=== PATIENT | female | born 1930 | race Caucasian/White ===

== ENCOUNTER 2018-06-15 05:35 | Inpatient (IN) | payer MEDICARE ==
[~2018-06-15] VITALS: Ht 157.5 cm; Wt 52.2 kg
[2018-06-15] MEDS ORDERED: AMLO5TAB7 PO (05:47)
[2018-06-15] MEDS ORDERED: FERR324T5 PO (05:47)
[2018-06-15] MEDS ORDERED: DONE5TAB7 PO (05:47)
[2018-06-15] MEDS ORDERED: ALBU2.5V5 NEB (05:47)
[2018-06-15] MEDS ORDERED: FOLI1TAB16 PO (05:47)
[2018-06-15] MEDS ORDERED: CLOT15CR4 TP (05:47)
[2018-06-15] MEDS ORDERED: CYAN10005 PO (05:47)
[2018-06-15] MEDS ORDERED: ACET500T68 PO (05:47)
[2018-06-15] MEDS ORDERED: PRAV40TA2 PO (06:12)
[2018-06-15] MEDS ORDERED: MELO7.5T29 PO (06:12)
[2018-06-15] MEDS ORDERED: LEVO750T5 PO (06:12)
[2018-06-15] MEDS ORDERED: MELA3TAB2 PO (06:12)
[2018-06-15] MEDS ORDERED: LEVE500T6 PO (06:12)
[2018-06-15] MEDS ORDERED: SERT100T PO (06:12)
[2018-06-15] MEDS ORDERED: FURO20TA3 PO (06:12)
[2018-06-15] MEDS ORDERED: HALO5AMP IM (06:12)
[2018-06-15] MEDS ORDERED: HALO2TAB PO (06:12)
[2018-06-15] MEDS ORDERED: SERT25TA PO (06:12)
[2018-06-15 12:00] VITALS: BP 145/61
--- NOTE | 2018-06-15 12:00 | NUR ---
Admission Note with Justification for Admission to [facility] Patient admitted to [facility] for protective oversight for emergency stabilization of acute psychiatric crisis. Pt admitted from: Hospital ER Mode of arrival: EMS Accompanied By: EMS Precipitating behaviors that initiated intake and admission:aggressive, throwing food, angry, confused, advanced dementia. Description of failure of out patient attempts at stabilization in previous setting list behavior and medication trials: Behaviors and assessment findings upon admission: calm, cooperative, compliant, confused. Plan: Admit for protective oversight for adjustment and stabilization of medications, behaviors and mood. Intense treatment regimen including groups, medication adjustments, therapy, consistent regimen for ADL's, self care, and sleep hygiene. Daily monitoring by Inpatient staff, Psychiatry, and Medical Physician.
[2018-06-15] MEDS ORDERED: METHYL SALICYLATE/MENTHOL TOPICAL OINTMENT 29GM TUBE. TP PRN (14:30)
[2018-06-15] MEDS ORDERED: MAGNESIUM HYDROXIDE 2,400 MG/30 ML ORAL.SUSP. PO PRN (14:30)
[2018-06-15] MEDS ORDERED: MAG HYDROX/AL HYDROX/SIMETH 30 ML ORAL.SUSP PO PRN (14:30)
[2018-06-15] MEDS ORDERED: ACETAMINOPHEN 325 MG TABLET PO PRN (14:30)
[2018-06-15 16:52] VITALS: BP 130/73
[2018-06-15] MEDS ORDERED: ALBUTEROL SULFATE 2.5 MG/3 ML NEBU. NEB PRN (17:30)
[2018-06-15] MEDS ORDERED: ACETAMINOPHEN 500 MG TABLET PO PRN (17:45)
[2018-06-15] MEDS ORDERED: MELATONIN 3 MG TABLET PO PRN (17:45)
[2018-06-15 18:57] LABS: AMORPHOUS SEDIMENT,UR PRESENT /HPF; BACTERIA,URINE 0 /HPF (0-FEW); BILIRUBIN,URINE NEG (NEG); CLARITY,URINE HAZY; COLOR,URINE AMBER; GLUCOSE,URINE NEG (NEG); NITRITE,URINE NEG (NEG); SQUAMOUS EPITHELIAL CELL,UR FEW /LPF; UROBILINOGEN,URINE 0.2 mg/dL (0.2 mg/dL)
[2018-06-15 18:58] LABS: GRANULAR CASTS,URINE OCC /HPF; HYALINE CASTS, URINE MANY /HPF
[2018-06-15] MEDS: PRAVASTATIN 20 MG TABLET. PO SCH (20:15)
[2018-06-15] MEDS: CLOTRIMAZOLE 1% TOPICAL CREAM 30GM TUBE. TP SCH (20:15)
[2018-06-15] MEDS: levETIRAcetam 500 MG TABLET PO SCH (20:15)
[2018-06-15] MEDS: DONEPEZIL HCL 5 MG TABLET. PO SCH (20:15)
--- NOTE | 2018-06-15 21:23 | HP ---
ADMIT DATE: 06/15/2018 PSYCHIATRIC ADMISSION HISTORY/EVALUATION IDENTIFYING DATA: The patient is an 88-year-old female referred to us from [facility] Emergency Room after she presented there with increased agitation, aggression, throwing food. She was angry, confused, reportedly has advanced dementia. Behaviors were unmanageable and she had been removed from her prior placement consequent to her behaviors and that being at home with her daughter as well. She was deemed potential danger, had failed outpatient psychiatric interventions, referred for inpatient psychiatric stabilization. CHIEF COMPLAINT: "I came today." The patient is accurate with this information, but other than this, she is unable to give me any relevant historical information other than being able to tell me her name. HISTORY OF PRESENT ILLNESS: The patient has a history of dementia, Alzheimer's vascular type with this has been getting progressively worse recently with added delusions, depression, and agitation. No clear history of bipolar disorder, suicidal or homicidal ideation. She has had some sleep and appetite changes as well. She has also appeared depressed, anxious, somewhat obsessive at other times. PAST PSYCHIATRIC HISTORY: As above. MEDICAL HISTORY: Positive for status post hip fracture, hypertension, seizure disorder, hyperlipidemia, pulmonary hypertension, osteoporosis, and pericardial effusion. ALLERGIES: She has a very significant allergies to DAIRY and reportedly this can make her deathly ill. She reportedly had seizures while she was on RISPERDAL and has a history of allergy to PENICILLIN. CODE STATUS: DNR. Ambulates with walker. Gait is unsteady. UA is negative. FAMILY HISTORY: Noncontributory. SOCIAL HISTORY: No history of alcohol, drug abuse, physical, sexual or elder abuse history is noted. Not known to be a perpetrator. REACTION TO HOSPITALIZATION: The patient oblivious of this. ASSETS: Supportive family and the patient's daughter is a DPOA, who facilitated and consented to this hospitalization. Her name is Sharona Godoy, telephone. MENTAL STATUS EXAM: The patient was seen individually evening of 06/15/2018. She ambulates with the assistance of staff members in walker, gait very unsteady. Insight, judgment, recent and remote memory, attention, concentration, fund of knowledge poor, consistent with her diagnosis. She is otherwise pleasant and other than being oriented to herself, unaware of date, time, or where she is, though she did state she came in today, which is accurate. IMPRESSION: Major neurocognitive disorder, Alzheimer's vascular with delusion, depression, behavioral disturbance; anxiety disorder, unspecified; impulse control disorder, unspecified. Rest diagnoses as above. PLAN: Admit to geropsychiatry unit at [facility]. I will see the patient daily individually from a psychiatric standpoint, medical followup with Dr. Barahona/Dr. Redding. Continue the patient on her current psychotropics, observe baseline and initiate fall risk precautions. Make further adjustments as clinically indicated. MAN Davide MUÑOZ MD DR: ALBARO/dee JOB#: [id number] / [id number]
--- NOTE | 2018-06-15 23:08 | NUR ---
Behavior Intervention Response and Plan: BIRP Note: Behavior: Assumed Care of patient, patient located in Day Room at shift change. Patient exhibited the following behavior Calm, Interactive, Cooperative. Brief assessment on rounds of vital signs, medication needs, lab studies, and pain. Treatment plan problems . Intervention: Patient assessed and the following interventions initiated safety checks 15 Minute Checks Personal Alarm in place , Head to toe Assessment , Cognitive Assessment. Response: After interactions and interventions patient responded in the following manner, Calm , Compliant ,Cooperative. Continue to assess behaviors and condition will continue to monitor throughout the shift as needed. Patient educated on ADL's, and hand hygiene. 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 Continue to assess patient for changes in above assessment. Monitor for medication needs, pain, and safety concerns. Hourly rounding performed to ensure safe environment.
--- NOTE | 2018-06-15 23:09 | NUR ---
Pt Daughter Sharona called to advise pt behavior triggers include: her personal appearance not being how she would like it, noise, clutter (people around her) and not having enough personal space. Advised she would like to remind us not to give her mother any dairy products or soy products, she also stated risperidal gives patient grand mal seizures so do not give that to her. I advised the daughter we are aware of her allergies and I will let all staff know about the triggers she advised me of.
--- NOTE | 2018-06-15 23:11 | PDOC ---
Exam Note: Dinesh Note: Please also refer to the separate dictated note~for this date of service dictated separately.~Patient seen individually. Discussed the patient with Nursing staff reviewed the chart.~Reviewed interim history and current functioning. Reviewed vital signs,~Labs/ Radiology~and current medications noted below. Continue current treatment with the changes noted in the dictated addendum note Assessment: Vital Signs: Vital Signs Date Time Temp Pulse Resp B/P (MAP) Pulse Ox O2 Delivery O2 Flow Rate FiO2 06/15/18 16:52 98.1 78 18 130/73 (92) 96 Room Air Labs: Laboratory Tests Test 06/15/18 18:26 Urine Collection Type Unknown Urine Color Breanna Urine Clarity Hazy Urine pH 5.5 Urine Specific [place] >=1.030 Urine Protein Trace (NEG-TRACE) Urine Glucose (UA) Neg mg/dL (NEG) Urine Ketones (Stick) Trace mg/dL (NEG) Urine Blood Neg (NEG) Urine Nitrite Neg (NEG) Urine Bilirubin Neg (NEG) Urine Urobilinogen Dipstick 0.2 mg/dL (0.2 mg/dL) Urine Leukocyte Esterase Neg (NEG) Urine RBC 1-2 /HPF (0-2) Urine WBC 1-4 /HPF (0-4) Urine Squamous Epithelial Cells Few /LPF Urine Amorphous Sediment Present /HPF Urine Bacteria 0 /HPF (0-FEW) Urine Hyaline Casts Many /HPF Urine Granular Casts Occ /HPF Urine Mucus Mod /LPF Current Medications: Meds: Current Medications Acetaminophen (Tylenol) 650 mg PRN Q6HRS PRN PO PAIN / TEMP; Start 06/15/18 at 14:30; Status Cancel Multi-Ingredient Ointment (Analgesic [place]) 1 hailee PRN QID PRN TP MUSCLE PAIN; Start 06/15/18 at 14:30 Al Hydroxide/Mg Hydroxide (Mylanta Plus Xs) 15 ml PRN AFTMEALHC PRN PO DYSPEPSIA; Start 06/15/18 at 14:30 Magnesium Hydroxide (Milk Of Magnesia) 2,400 mg PRN QHS PRN PO CONSTIPATION; Start 06/15/18 at 14:30 Albuterol Sulfate (Ventolin) 2.5 mg PRN Q6HRS PRN NEB SHORTNESS OF BREATH; Start 06/15/18 at 17:30 Cyanocobalamin (Vitamin B-12) 1,000 mcg DAILY PO ; Start 06/16/18 at 09:00 Furosemide (Lasix) 20 mg DAILYAC PO ; Start 06/16/18 at 07:30 Acetaminophen (Tylenol) 1,000 mg PRN TID PRN PO PAIN / TEMP; Start 06/15/18 at 17:45 Amlodipine Besylate (Norvasc) 5 mg DAILY PO ; Start 06/16/18 at 09:00 Clotrimazole (Lotrimin) 1 hailee BID TP ; Start 06/15/18 at 21:00 Ferrous Sulfate (Feosol) 325 mg Q48H PO ; Start 06/17/18 at 08:00 Folic Acid (Folic Acid) 1 mg DAILY PO ; Start 06/16/18 at 09:00 Levetiracetam (Keppra) 500 mg BID PO Last administered on 06/15/18at 20:15; Start 06/15/18 at 21:00 Levofloxacin (Levaquin) 750 mg Q48H PO ; Start 06/16/18 at 06:00 Melatonin 3 mg PRN QHS PRN PO INSOMNIA; Start 06/15/18 at 17:45 Meloxicam (Mobic) 7.5 mg DAILYWBKFT PO ; Start 06/16/18 at 08:00 Pravastatin Sodium (Pravachol) 40 mg QHS PO Last administered on 06/15/18at 20: 15; Start 06/15/18 at 21:00 Sertraline HCl (Zoloft) 100 mg DAILY PO ; Start 06/16/18 at 09:00 Donepezil HCl (Aricept) 5 mg HS PO Last administered on 06/15/18at 20:15; Start 06/15/18 at 21:00 Haloperidol (Haldol) 2 mg PRN TID PRN PO ANXIETY / AGITATION; Start 06/15/18 at 18:00 Sertraline HCl (Zoloft) 25 mg DAILY PO ; Start 06/16/18 at 09:00 Active Scripts Active Reported Furosemide 20 Mg Tablet 20 Mg PO DAILYAC Levofloxacin 750 Mg Tablet 750 Mg PO Q48HRS Haloperidol (Haloperidol Lactate) 5 Mg/1 Ml Ampul 5 Mg IM PRN Q4HRS PRN Haloperidol 2 Mg Tablet 2 Mg PO TID PRN Zoloft (Sertraline Hcl) 25 Mg Tablet 25 Mg PO DAILY Zoloft (Sertraline Hcl) 100 Mg Tablet 100 Mg PO DAILY Pravastatin Sodium 40 Mg Tablet 40 Mg PO HS Meloxicam 7.5 Mg Tablet 7.5 Mg PO DAILYWBKFT Melatonin 3 Mg Tablet 3 Mg PO HS PRN Levetiracetam 500 Mg Tablet 500 Mg PO BID Folic Acid 1 Mg Tablet 1 Mg PO DAILY Ferrous Sulfate 324 Mg Tablet.dr 324 Mg PO Q48HRS Donepezil Hcl 5 Mg Tablet 5 Mg PO HS Vitamin B-12 (Cyanocobalamin (Vitamin B-12)) 1,000 Mcg Tablet 1,000 Mcg PO DAILY Clotrimazole 15 Gm Cream..g. 1 Hailee TP BID Amlodipine Besylate 5 Mg Tablet 5 Mg PO DAILY Albuterol Sulfate Neb Soln (Albuterol Sulfate) 2.5 Mg/3 Ml Vial.neb 3 Ml NEB PRN Q6HRS PRN Acetaminophen 500 Mg Tablet 1,000 Mg PO TID PRN I have reviewed the current psychotropics carefully including drug interactions. Risk benefit ratio favors no change other than as noted in my dictated progress note. Diagnosis: Problems: (1) Anxiety disorder (2) Dementia in Alzheimer's disease with delusions (3) Dementia in Alzheimer's disease with depression (4) Dementia, vascular, with delusions (5) Dementia, vascular, with depression (6) Impulse control disorder ANTWAN MUÑOZ MD Jun 15, 2018 23:11
[2018-06-16] MEDS: levoFLOXacin 750 MG TABLET PO SCH (06:09)
[2018-06-16 06:16] VITALS: BP 117/65
[2018-06-16 08:26] LABS: BASO # 0.1 x10^3/uL (0.0-0.2); BASO % 1 % (0-3); EOS # 0.2 x10^3/uL (0.0-0.7); EOS % 4 % (0-3); HEMOGLOBIN 13.4 g/dL (12.0-15.5); LYMPH # 0.9 x10^3/uL (1.0-4.8); LYMPH % 16 % (24-48); MEAN CORPUSCULAR HEMOGLOBIN 29 pg (25-35); MEAN CORPUSCULAR HGB CONC 34 g/dL (31-37); MEAN CORPUSCULAR VOLUME 86 fL (79-100); MONO # 0.7 x10^3/uL (0.0-1.1); MONO % 12 % (0-9); NEUT # 3.8 x10^3uL (1.8-7.7); NEUT % 67 % (31-73); PLATELET COUNT 293 x10^3/uL (140-400); RED BLOOD COUNT 4.68 x10^6/uL (3.50-5.40); RED CELL DISTRIBUTION WIDTH 14.8 % (11.5-14.5); WHITE BLOOD COUNT 5.6 x10^3/uL (4.0-11.0)
[2018-06-16 08:36] LABS: ALBUMIN 3.3 g/dL (3.4-5.0); ALBUMIN/GLOBULIN RATIO 0.9 (1.0-1.7); CALCIUM 8.8 mg/dL (8.5-10.1); CREATININE 0.8 mg/dL (0.6-1.0); GFR 67.8; MAGNESIUM 2.1 mg/dL (1.8-2.4); POTASSIUM 3.7 mmol/L (3.5-5.1); TOTAL BILIRUBIN 0.4 mg/dL (0.2-1.0); TOTAL PROTEIN 7.1 g/dL (6.4-8.2)
[2018-06-16] MEDS: MELOXICAM 7.5 MG TABLET PO SCH (09:37)
[2018-06-16] MEDS: FUROSEMIDE 20 MG TABLET PO SCH (09:37)
[2018-06-16] MEDS: FOLIC ACID 1 MG TABLET PO SCH (09:38)
[2018-06-16] MEDS: levETIRAcetam 500 MG TABLET PO SCH ×2 (09:38→19:55)
[2018-06-16] MEDS: SERTRALINE 25 MG TABLET. PO SCH (09:39)
[2018-06-16] MEDS: SERTRALINE 100 MG TABLET. PO SCH (09:39)
[2018-06-16] MEDS: CYANOCOBALAMIN (VITAMIN B-12) 1,000 MCG TABLET. PO SCH (09:39)
[2018-06-16] MEDS: amLODIPine BESYLATE 5 MG TABLET PO SCH (09:39)
[2018-06-16] MEDS: LACTOBACILLUS RHAMNOSUS GG 1 CAPSULE. PO SCH ×2 (09:52→19:54)
[2018-06-16 10:20] LABS: THYROID STIM HORMONE (TSH) 3.679 uIU/mL (0.358-3.740)
--- NOTE | 2018-06-16 10:28 | NUR ---
Pt is calm, cooperative, and confused. She is alert to self only. She thinks she is at a hotel. When asked "what month is it she stated "Sunday."" She was not able to state the year. No agitation, aggression, hallucinations, or delusions noted. Pt is compliant with medication and assessment.
[2018-06-16 12:06] LABS: THYROXINE 7.8 ug/dL (4.5-12.0)
[2018-06-16] MEDS: CLOTRIMAZOLE 1% TOPICAL CREAM 30GM TUBE. TP SCH ×2 (15:07→19:55)
[2018-06-16 16:47] VITALS: BP 118/69
[2018-06-16] MEDS: HALOPERIDOL 2 MG TABLET PO PRN (16:56)
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
[2018-06-16] MEDS: DONEPEZIL HCL 5 MG TABLET. PO SCH (19:54)
[2018-06-16] MEDS: PRAVASTATIN 20 MG TABLET. PO SCH (19:55)
--- NOTE | 2018-06-16 22:18 | NUR ---
Behavior Intervention Response and Plan: BIRP Note: Behavior: Assumed Care of patient, patient located in Day Room at shift change. Patient exhibited the following behavior Calm, Social, Compliant. Brief assessment on rounds of vital signs, medication needs, lab studies, and pain. Treatment plan problems . Intervention: Patient assessed and the following interventions initiated safety checks 15 Minute Checks Personal Alarm in place , Cognitive Assessment , Head to toe Assessment. Response: After interactions and interventions patient responded in the following manner, Calm , Compliant ,Cooperative. Continue to assess behaviors and condition will continue to monitor throughout the shift as needed. Patient educated on ADL's, and hand hygiene. Plan: Continue to monitor Master Treatment Plan for patient's progress toward short term goals of Decreased Agitation, Improved Mood, supervisor intermediates goals to return to previous living setting vs placement. Continue to assess patient for changes in above assessment. Monitor for medication needs, pain, and safety concerns. Hourly rounding performed to ensure safe environment.
--- NOTE | 2018-06-16 23:12 | PDOC ---
Exam Note: Dinesh Note: Please also refer to the separate dictated note~for this date of service dictated separately.~Patient seen individually. Discussed the patient with Nursing staff reviewed the chart.~Reviewed interim history and current functioning. Reviewed vital signs,~Labs/ Radiology~and current medications noted below. Continue current treatment with the changes noted in the dictated addendum note Assessment: Vital Signs: Vital Signs Date Time Temp Pulse Resp B/P (MAP) Pulse Ox O2 Delivery O2 Flow Rate FiO2 06/16/18 16:47 97.6 83 18 118/69 (85) 93 Nasal Cannula I&O Intake and Output 06/16/18 07:00 Intake Total 240 ml Balance 240 ml Intake Oral 240 ml Labs: Laboratory Tests Test 06/16/18 07:54 White Blood Count 5.6 x10^3/uL (4.0-11.0) Red Blood Count 4.68 x10^6/uL (3.50-5.40) Hemoglobin 13.4 g/dL (12.0-15.5) Hematocrit 40.0 % (36.0-47.0) Mean Corpuscular Volume 86 fL (79-100) Mean Corpuscular Hemoglobin 29 pg (25-35) Mean Corpuscular Hemoglobin Concent 34 g/dL (31-37) Red Cell Distribution Width 14.8 % (11.5-14.5) H Platelet Count 293 x10^3/uL (140-400) Neutrophils (%) (Auto) 67 % (31-73) Lymphocytes (%) (Auto) 16 % (24-48) L Monocytes (%) (Auto) 12 % (0-9) H Eosinophils (%) (Auto) 4 % (0-3) H Basophils (%) (Auto) 1 % (0-3) Neutrophils # (Auto) 3.8 x10^3uL (1.8-7.7) Lymphocytes # (Auto) 0.9 x10^3/uL (1.0-4.8) L Monocytes # (Auto) 0.7 x10^3/uL (0.0-1.1) Eosinophils # (Auto) 0.2 x10^3/uL (0.0-0.7) Basophils # (Auto) 0.1 x10^3/uL (0.0-0.2) Sodium Level 141 mmol/L (136-145) Potassium Level 3.7 mmol/L (3.5-5.1) Chloride Level 107 mmol/L (98-107) Carbon Dioxide Level 27 mmol/L (21-32) Anion Gap 7 (6-14) Blood Urea Nitrogen 22 mg/dL (7-20) H Creatinine 0.8 mg/dL (0.6-1.0) Estimated GFR (Cockcroft-Gault) 67.8 BUN/Creatinine Ratio 28 (6-20) H Glucose Level 95 mg/dL (70-99) Calcium Level 8.8 mg/dL (8.5-10.1) Magnesium Level 2.1 mg/dL (1.8-2.4) Iron Level 39 ug/dL (50-170) L Total Iron Binding Capacity 295 ug/dL (250-450) Iron Saturation 13 % (15-34) L Total Bilirubin 0.4 mg/dL (0.2-1.0) Aspartate Amino Transferase (AST) 29 U/L (15-37) Alanine Aminotransferase (ALT) 19 U/L (14-59) Alkaline Phosphatase 54 U/L (46-116) Total Protein 7.1 g/dL (6.4-8.2) Albumin 3.3 g/dL (3.4-5.0) L Albumin/Globulin Ratio 0.9 (1.0-1.7) L Triglycerides Level 71 mg/dL (0-150) Cholesterol Level 170 mg/dL (0-200) LDL Cholesterol, Calculated 121 mg/dL (0-100) H VLDL Cholesterol, Calculated 14 mg/dL (0-40) Non-HDL Cholesterol Calculated 135 mg/dL (0-129) H HDL Cholesterol 35 mg/dL (40-60) L Cholesterol/HDL Ratio 4.0 Thyroid Stimulating Hormone (TSH) 3.679 uIU/mL (0.358-3.740) Thyroxine (T4) 7.8 ug/dL (4.5-12.0) Total Triiodothyronine (TT3) 102 ng/dL (71-180) Current Medications: Meds: Current Medications Acetaminophen (Tylenol) 650 mg PRN Q6HRS PRN PO PAIN / TEMP; Start 06/15/18 at 14:30; Status Cancel Multi-Ingredient Ointment (Analgesic [place]) 1 hailee PRN QID PRN TP MUSCLE PAIN; Start 06/15/18 at 14:30 Al Hydroxide/Mg Hydroxide (Mylanta Plus Xs) 15 ml PRN AFTMEALHC PRN PO DYSPEPSIA; Start 06/15/18 at 14:30 Magnesium Hydroxide (Milk Of Magnesia) 2,400 mg PRN QHS PRN PO CONSTIPATION; Start 06/15/18 at 14:30 Albuterol Sulfate (Ventolin) 2.5 mg PRN Q6HRS PRN NEB SHORTNESS OF BREATH; Start 06/15/18 at 17:30 Cyanocobalamin (Vitamin B-12) 1,000 mcg DAILY PO Last administered on at 09:39; Start 06/16/18 at 09:00 Furosemide (Lasix) 20 mg DAILYAC PO Last administered on 06/16/18at 09:37; Start 06/16/18 at 07:30 Acetaminophen (Tylenol) 1,000 mg PRN TID PRN PO PAIN / TEMP; Start 06/15/18 at 17:45 Amlodipine Besylate (Norvasc) 5 mg DAILY PO Last administered on 06/16/18at 09: 39; Start 06/16/18 at 09:00 Clotrimazole (Lotrimin) 1 hailee BID TP Last administered on 06/16/18at 15:07; Start 06/15/18 at 21:00 Ferrous Sulfate (Feosol) 325 mg Q48H PO ; Start 06/17/18 at 08:00 Folic Acid (Folic Acid) 1 mg DAILY PO Last administered on 06/16/18at 09:38; Start 06/16/18 at 09:00 Levetiracetam (Keppra) 500 mg BID PO Last administered on 06/16/18at 19:55; Start 06/15/18 at 21:00 Levofloxacin (Levaquin) 750 mg Q48H PO Last administered on 06/16/18at 06:09; Start 06/16/18 at 06:00 Melatonin 3 mg PRN QHS PRN PO INSOMNIA; Start 06/15/18 at 17:45 Meloxicam (Mobic) 7.5 mg DAILYWBKFT PO Last administered on 06/16/18at 09:37; Start 06/16/18 at 08:00 Pravastatin Sodium (Pravachol) 40 mg QHS PO Last administered on 06/16/18 19: 55; Start 06/15/18 at 21:00 Sertraline HCl (Zoloft) 100 mg DAILY PO Last administered on 06/16/18at 09:39; Start 06/16/18 at 09:00 Donepezil HCl (Aricept) 5 mg HS PO Last administered on 06/16/18at 19:54; Start 06/15/18 at 21:00 Haloperidol (Haldol) 2 mg PRN TID PRN PO ANXIETY / AGITATION Last administered on 06/16/18 16:56; Start 06/15/18 at 18:00 Sertraline HCl (Zoloft) 25 mg DAILY PO Last administered on 06/16/18 09:39; Start 06/16/18 at 09:00 Lactobacillus Rhamnosus (Culturelle) 1 cap BID PO Last administered on at 19:54; Start 06/16/18 at 09:00 Olanzapine (ZyPREXA ZYDIS) 2.5 mg PRN Q2HR PRN PO PSYCHOSIS; Start 06/16/18 at 17:30 Active Scripts Active Reported Furosemide 20 Mg Tablet 20 Mg PO DAILYAC Levofloxacin 750 Mg Tablet 750 Mg PO Q48HRS Haloperidol (Haloperidol Lactate) 5 Mg/1 Ml Ampul 5 Mg IM PRN Q4HRS PRN Haloperidol 2 Mg Tablet 2 Mg PO TID PRN Zoloft (Sertraline Hcl) 25 Mg Tablet 25 Mg PO DAILY Zoloft (Sertraline Hcl) 100 Mg Tablet 100 Mg PO DAILY Pravastatin Sodium 40 Mg Tablet 40 Mg PO HS Meloxicam 7.5 Mg Tablet 7.5 Mg PO DAILYWBKFT Melatonin 3 Mg Tablet 3 Mg PO HS PRN Levetiracetam 500 Mg Tablet 500 Mg PO BID Folic Acid 1 Mg Tablet 1 Mg PO DAILY Ferrous Sulfate 324 Mg Tablet.dr 324 Mg PO Q48HRS Donepezil Hcl 5 Mg Tablet 5 Mg PO HS Vitamin B-12 (Cyanocobalamin (Vitamin B-12)) 1,000 Mcg Tablet 1,000 Mcg PO DAILY Clotrimazole 15 Gm Cream..g. 1 Hailee TP BID Amlodipine Besylate 5 Mg Tablet 5 Mg PO DAILY Albuterol Sulfate Neb Soln (Albuterol Sulfate) 2.5 Mg/3 Ml Vial.neb 3 Ml NEB PRN Q6HRS PRN Acetaminophen 500 Mg Tablet 1,000 Mg PO TID PRN I have reviewed the current psychotropics carefully including drug interactions. Risk benefit ratio favors no change other than as noted in my dictated progress note. Diagnosis: Problems: (1) Anxiety disorder (2) Dementia in Alzheimer's disease with delusions (3) Dementia in Alzheimer's disease with depression (4) Dementia, vascular, with delusions (5) Dementia, vascular, with depression (6) Impulse control disorder ANTWAN MUÑOZ MD Jun 16, 2018 23:12
--- NOTE | 2018-06-16 23:16 | PDOC2 ---
CONSULT Date of Admission DATE: 06/16/18 TIME: 23:16 Reason for Consult: Medical Management Referring Physician: Dr العراقي Source: Caregiver, Chart review, Patient History of Present Illness: 88/F to [facility] for [facility] admission due to dementia with delusions and behavioral disturbances. Records indicate that recently patiently has become more aggressive, angry, and confused. She's reportedly become more resistant/refusing meds/treatments, and throwing food. Risperdal and titration of seizure meds reportedly not effective. She reportedly thinks she's at a hotel. I find her lying in bed sleeping, in no distress. She is confused with questioning but not aggressive and she is overall cooperative. Cardiovascular: HTN, hyperipidemia, pulmonary hypertension, Other (pericardial effusion) Pulmonary: Other CENTRAL NERVOUS SYSTEM: Dementia, Seizure Heme/Onc: Iron deficiency Anemia Musculoskeletal: Osteoarthritis, Other (osteoporosis) Dermatology: Other (onychomycosis) Past Surgical History ORIF R hip Past Surgical History: No pertinent history Smoke: No ALCOHOL: none Drugs: None Current Medications Current Medications Acetaminophen (Tylenol) 650 mg PRN Q6HRS PRN PO PAIN / TEMP; Start 06/15/18 at 14:30; Status Cancel Multi-Ingredient Ointment (Analgesic [place]) 1 hailee PRN QID PRN TP MUSCLE PAIN; Start 06/15/18 at 14:30 Al Hydroxide/Mg Hydroxide (Mylanta Plus Xs) 15 ml PRN AFTMEALHC PRN PO DYSPEPSIA; Start 06/15/18 at 14:30 Magnesium Hydroxide (Milk Of Magnesia) 2,400 mg PRN QHS PRN PO CONSTIPATION; Start 06/15/18 at 14:30 Albuterol Sulfate (Ventolin) 2.5 mg PRN Q6HRS PRN NEB SHORTNESS OF BREATH; Start 06/15/18 at 17:30 Cyanocobalamin (Vitamin B-12) 1,000 mcg DAILY PO Last administered on at 09:39; Start 06/16/18 at 09:00 Furosemide (Lasix) 20 mg DAILYAC PO Last administered on 06/16/18at 09:37; Start 06/16/18 at 07:30 Acetaminophen (Tylenol) 1,000 mg PRN TID PRN PO PAIN / TEMP; Start 06/15/18 at 17:45 Amlodipine Besylate (Norvasc) 5 mg DAILY PO Last administered on 06/16/18 09: 39; Start 06/16/18 at 09:00 Clotrimazole (Lotrimin) 1 hailee BID TP Last administered on 06/16/18 15:07; Start 06/15/18 at 21:00 Ferrous Sulfate (Feosol) 325 mg Q48H PO ; Start 06/17/18 at 08:00 Folic Acid (Folic Acid) 1 mg DAILY PO Last administered on 06/16/18 09:38; Start 06/16/18 at 09:00 Levetiracetam (Keppra) 500 mg BID PO Last administered on 06/16/18 19:55; Start 06/15/18 at 21:00 Levofloxacin (Levaquin) 750 mg Q48H PO Last administered on 06/16/18 06:09; Start 06/16/18 at 06:00 Melatonin 3 mg PRN QHS PRN PO INSOMNIA; Start 06/15/18 at 17:45 Meloxicam (Mobic) 7.5 mg DAILYWBKFT PO Last administered on 06/16/18 09:37; Start 06/16/18 at 08:00 Pravastatin Sodium (Pravachol) 40 mg QHS PO Last administered on 06/16/18 19: 55; Start 06/15/18 at 21:00 Sertraline HCl (Zoloft) 100 mg DAILY PO Last administered on 06/16/18 09:39; Start 06/16/18 at 09:00 Donepezil HCl (Aricept) 5 mg HS PO Last administered on 06/16/18 19:54; Start 06/15/18 at 21:00 Haloperidol (Haldol) 2 mg PRN TID PRN PO ANXIETY / AGITATION Last administered on 06/16/18 16:56; Start 06/15/18 at 18:00 Sertraline HCl (Zoloft) 25 mg DAILY PO Last administered on 06/16/18 09:39; Start 06/16/18 at 09:00 Lactobacillus Rhamnosus (Culturelle) 1 cap BID PO Last administered on 19:54; Start 06/16/18 at 09:00 Olanzapine (ZyPREXA ZYDIS) 2.5 mg PRN Q2HR PRN PO PSYCHOSIS; Start 06/16/18 at 17:30 Active Scripts Active Reported Furosemide 20 Mg Tablet 20 Mg PO DAILYAC Levofloxacin 750 Mg Tablet 750 Mg PO Q48HRS Haloperidol (Haloperidol Lactate) 5 Mg/1 Ml Ampul 5 Mg IM PRN Q4HRS PRN Haloperidol 2 Mg Tablet 2 Mg PO TID PRN Zoloft (Sertraline Hcl) 25 Mg Tablet 25 Mg PO DAILY Zoloft (Sertraline Hcl) 100 Mg Tablet 100 Mg PO DAILY Pravastatin Sodium 40 Mg Tablet 40 Mg PO HS Meloxicam 7.5 Mg Tablet 7.5 Mg PO DAILYWBKFT Melatonin 3 Mg Tablet 3 Mg PO HS PRN Levetiracetam 500 Mg Tablet 500 Mg PO BID Folic Acid 1 Mg Tablet 1 Mg PO DAILY Ferrous Sulfate 324 Mg Tablet.dr 324 Mg PO Q48HRS Donepezil Hcl 5 Mg Tablet 5 Mg PO HS Vitamin B-12 (Cyanocobalamin (Vitamin B-12)) 1,000 Mcg Tablet 1,000 Mcg PO DAILY Clotrimazole 15 Gm Cream..g. 1 Hailee TP BID Amlodipine Besylate 5 Mg Tablet 5 Mg PO DAILY Albuterol Sulfate Neb Soln (Albuterol Sulfate) 2.5 Mg/3 Ml Vial.neb 3 Ml NEB PRN Q6HRS PRN Acetaminophen 500 Mg Tablet 1,000 Mg PO TID PRN Allergies: Coded Allergies: Milk Containing Products (Verified Allergy, Severe, 06/15/18) risperidone (Verified Allergy, Severe, 06/15/18) Seizures Penicillins (Verified Allergy, Intermediate, 06/15/18) soy (Verified Allergy, Unknown, 06/16/18) Review of Systems: Constitutional: No fever or chills Eyes: No eye pain or blurred vision Skin: No rash or itching Cardiovascular: No chest pain, syncope, palpitations, dyspnea on exertion, or edema Respiratory: No cough or difficulty breathing Gastrointestinal: No nausea, vomiting, or abdominal pain Neurologic: No headaches or focal neurologic deficits Endocrine: No heat or cold intolerance Genitourinary: No incontinence or hematuria Musculoskeletal: No joint pain or swelling Lymphatics: No enlarged lymph nodes Psychiatric: No anxiety or depression Physical Exam: Gen.: sleeping in bed rouses to verbal no distress HEENT: Normocephalic atraumatic, no scleral icterus, oral mucosa pink and moist Neck: Supple, no lymphadenopathy, nontender Cardiovascular: Normal S1 and S2 no murmurs Pulmonary: Lungs are clear bilaterally with good air movement no respiratory distress Abdomen: Soft nontender non-distended, bowel sounds present no masses Extremities: No clubbing, cyanosis or edema, OA changes b/l hands noted Neuro: Alert, cranial nerves II through XII grossly intact, no lateralizing neuro deficits Skin: Warm, dry VITALS Vital Signs Date Time Temp Pulse Resp B/P (MAP) Pulse Ox O2 Delivery O2 Flow Rate FiO2 06/16/18 16:47 97.6 83 18 118/69 (85) 93 Nasal Cannula Labs Laboratory Tests Test 06/15/18 18:26 06/16/18 07:54 Urine Collection Type Unknown Urine Color Breanna Urine Clarity Hazy Urine pH 5.5 Urine Specific [place] >=1.030 Urine Protein Trace (NEG-TRACE) Urine Glucose (UA) Neg mg/dL (NEG) Urine Ketones (Stick) Trace mg/dL (NEG) Urine Blood Neg (NEG) Urine Nitrite Neg (NEG) Urine Bilirubin Neg (NEG) Urine Urobilinogen Dipstick 0.2 mg/dL (0.2 mg/dL) Urine Leukocyte Esterase Neg (NEG) Urine RBC 1-2 /HPF (0-2) Urine WBC 1-4 /HPF (0-4) Urine Squamous Epithelial Cells Few /LPF Urine Amorphous Sediment Present /HPF Urine Bacteria 0 /HPF (0-FEW) Urine Hyaline Casts Many /HPF Urine Granular Casts Occ /HPF Urine Mucus Mod /LPF White Blood Count 5.6 x10^3/uL (4.0-11.0) Red Blood Count 4.68 x10^6/uL (3.50-5.40) Hemoglobin 13.4 g/dL (12.0-15.5) Hematocrit 40.0 % (36.0-47.0) Mean Corpuscular Volume 86 fL (79-100) Mean Corpuscular Hemoglobin 29 pg (25-35) Mean Corpuscular Hemoglobin Concent 34 g/dL (31-37) Red Cell Distribution Width 14.8 % (11.5-14.5) Platelet Count 293 x10^3/uL (140-400) Neutrophils (%) (Auto) 67 % (31-73) Lymphocytes (%) (Auto) 16 % (24-48) Monocytes (%) (Auto) 12 % (0-9) Eosinophils (%) (Auto) 4 % (0-3) Basophils (%) (Auto) 1 % (0-3) Neutrophils # (Auto) 3.8 x10^3uL (1.8-7.7) Lymphocytes # (Auto) 0.9 x10^3/uL (1.0-4.8) Monocytes # (Auto) 0.7 x10^3/uL (0.0-1.1) Eosinophils # (Auto) 0.2 x10^3/uL (0.0-0.7) Basophils # (Auto) 0.1 x10^3/uL (0.0-0.2) Sodium Level 141 mmol/L (136-145) Potassium Level 3.7 mmol/L (3.5-5.1) Chloride Level 107 mmol/L (98-107) Carbon Dioxide Level 27 mmol/L (21-32) Anion Gap 7 (6-14) Blood Urea Nitrogen 22 mg/dL (7-20) Creatinine 0.8 mg/dL (0.6-1.0) Estimated GFR (Cockcroft-Gault) 67.8 BUN/Creatinine Ratio 28 (6-20) Glucose Level 95 mg/dL (70-99) Calcium Level 8.8 mg/dL (8.5-10.1) Magnesium Level 2.1 mg/dL (1.8-2.4) Iron Level 39 ug/dL (50-170) Total Iron Binding Capacity 295 ug/dL (250-450) Iron Saturation 13 % (15-34) Total Bilirubin 0.4 mg/dL (0.2-1.0) Aspartate Amino Transf (AST/SGOT) 29 U/L (15-37) Alanine Aminotransferase (ALT/SGPT) 19 U/L (14-59) Alkaline Phosphatase 54 U/L (46-116) Total Protein 7.1 g/dL (6.4-8.2) Albumin 3.3 g/dL (3.4-5.0) Albumin/Globulin Ratio 0.9 (1.0-1.7) Triglycerides Level 71 mg/dL (0-150) Cholesterol Level 170 mg/dL (0-200) LDL Cholesterol, Calculated 121 mg/dL (0-100) VLDL Cholesterol, Calculated 14 mg/dL (0-40) Non-HDL Cholesterol Calculated 135 mg/dL (0-129) HDL Cholesterol 35 mg/dL (40-60) Cholesterol/HDL Ratio 4.0 Thyroid Stimulating Hormone (TSH) 3.679 uIU/mL (0.358-3.740) Thyroxine (T4) 7.8 ug/dL (4.5-12.0) Total Triiodothyronine 102 ng/dL (71-180) Assessment/Plan In general this is an overall very well physically preserved 88/F admitted to [facility] unit for worsening behaviors. Her cholesterol is mildly elevated however overall her chronic illnesses as well as pertinent acute medical problems appear to be controlled with current medications/dosages. Lipids are elevated but at her age and levels not warranting pharmacologic intervention. Studies remain pending, will continue to follow and offer treatments as indicated. Thank you, Dr العراقي, for allowing me to participate in the care of your patient. ALEXANDRU WALTON DO Jun 16, 2018 23:16
--- NOTE | 2018-06-16 23:31 | EKG ---
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
[2018-06-17 06:14] VITALS: BP 117/69
[2018-06-17] MEDS: LACTOBACILLUS RHAMNOSUS GG 1 CAPSULE. PO SCH ×2 (09:40→20:40)
[2018-06-17] MEDS: levETIRAcetam 500 MG TABLET PO SCH ×2 (09:40→20:40)
[2018-06-17] MEDS: FUROSEMIDE 20 MG TABLET PO SCH (09:40)
[2018-06-17] MEDS: FERROUS SULFATE 325 MG TABLET. PO SCH (09:40)
[2018-06-17] MEDS: MELOXICAM 7.5 MG TABLET PO SCH (09:40)
[2018-06-17] MEDS: FOLIC ACID 1 MG TABLET PO SCH (09:40)
[2018-06-17] MEDS: SERTRALINE 100 MG TABLET. PO SCH (09:41)
[2018-06-17] MEDS: CYANOCOBALAMIN (VITAMIN B-12) 1,000 MCG TABLET. PO SCH (09:41)
[2018-06-17] MEDS: SERTRALINE 25 MG TABLET. PO SCH (09:41)
[2018-06-17] MEDS: amLODIPine BESYLATE 5 MG TABLET PO SCH (09:41)
--- NOTE | 2018-06-17 11:04 | NUR ---
Pt is cooperative with medication and assessment. She is confused and cooperative. She is alert to person and occasionally place. No agitation or aggression at this time.
[2018-06-17] MEDS: CLOTRIMAZOLE 1% TOPICAL CREAM 30GM TUBE. TP SCH ×2 (15:06→20:41)
[2018-06-17 15:42] VITALS: BP 108/65
[2018-06-17] MEDS: HALOPERIDOL 2 MG TABLET PO PRN (15:43)
--- NOTE | 2018-06-17 15:45 | NUR ---
Pt is wandering the unit stating "Im going home." She is looking for exits and asking staff about going home. PRN silvanol given.
[2018-06-17] MEDS: DONEPEZIL HCL 5 MG TABLET. PO SCH (20:40)
[2018-06-17] MEDS: PRAVASTATIN 20 MG TABLET. PO SCH (20:40)
--- NOTE | 2018-06-17 21:49 | PN ---
DATE: 06/16/2018 PSYCHIATRIC PROGRESS NOTE This is a late entry 06/16/2018 covers elements not covered in my initial note. SUBJECTIVE: I met with the patient in the evening. The patient slept 6-3/4 hours previous night. She slept 6-3/4 hours. Remains quite confused, anxious, restless. REVIEW OF SYSTEMS: No CV, , pulmonary, eye, ENT system symptoms on review. MENTAL STATUS EXAM: Oriented to herself. Insight, judgment, recent and remote memory, attention, concentration, fund of knowledge poor, consistent with her diagnosis mentioned in my initial note. IMPRESSION: Major neurocognitive disorder, Alzheimer, vascular with delusion, depression, behavioral disturbance; anxiety disorder, unspecified; impulse control disorder, unspecified. PLAN: Continue Aricept 5 mg a day, Keppra for her seizures 500 b.i.d., Zoloft 125 mg a day, Zyprexa was added p.r.n. and we will consider stopping the Haldol p.r.n. We will make further adjustments as clinically indicated. MAN Davide MUÑOZ MD DR: ALBARO/dee JOB#: [id number] / [id number]
--- NOTE | 2018-06-17 22:29 | NUR ---
Behavior Intervention Response and Plan: BIRP Note: Behavior: Assumed Care of patient, patient located in Patient Room at shift change. Patient exhibited the following behavior Calm, Sleeping, Cooperative. Brief assessment on rounds of vital signs, medication needs, lab studies, and pain. Treatment plan problems . Intervention: Patient assessed and the following interventions initiated safety checks 15 Minute Checks Cognitive Assessment , Head to toe Assessment , Personal Alarm in place. Response: After interactions and interventions patient responded in the following manner, Calm , Sleeping ,Compliant. Continue to assess behaviors and condition will continue to monitor throughout the shift as needed. Patient educated on ADL's, and hand hygiene. 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 Continue to assess patient for changes in above assessment. Monitor for medication needs, pain, and safety concerns. Hourly rounding performed to ensure safe environment.
[2018-06-17 23:12] LABS: HEMOGLOBIN A1C 5.3 % (4.8-5.6)
--- NOTE | 2018-06-17 23:15 | PDOC ---
Exam Note: Dinesh Note: Please also refer to the separate dictated note~for this date of service dictated separately.~Patient seen individually. Discussed the patient with Nursing staff reviewed the chart.~Reviewed interim history and current functioning. Reviewed vital signs,~Labs/ Radiology~and current medications noted below. Continue current treatment with the changes noted in the dictated addendum note Assessment: Vital Signs: Vital Signs Date Time Temp Pulse Resp B/P (MAP) Pulse Ox O2 Delivery O2 Flow Rate FiO2 06/17/18 15:42 97.5 84 17 108/65 (79) 94 Room Air I&O Intake and Output 06/17/18 07:00 Intake Total 820 ml Balance 820 ml Intake Oral 820 ml Current Medications: Meds: Current Medications Acetaminophen (Tylenol) 650 mg PRN Q6HRS PRN PO PAIN / TEMP; Start 06/15/18 at 14:30; Status Cancel Multi-Ingredient Ointment (Analgesic [place]) 1 hailee PRN QID PRN TP MUSCLE PAIN; Start 06/15/18 at 14:30 Al Hydroxide/Mg Hydroxide (Mylanta Plus Xs) 15 ml PRN AFTMEALHC PRN PO DYSPEPSIA; Start 06/15/18 at 14:30 Magnesium Hydroxide (Milk Of Magnesia) 2,400 mg PRN QHS PRN PO CONSTIPATION; Start 06/15/18 at 14:30 Albuterol Sulfate (Ventolin) 2.5 mg PRN Q6HRS PRN NEB SHORTNESS OF BREATH; Start 06/15/18 at 17:30 Cyanocobalamin (Vitamin B-12) 1,000 mcg DAILY PO Last administered on at 09:41; Start 06/16/18 at 09:00 Furosemide (Lasix) 20 mg DAILYAC PO Last administered on 06/17/18at 09:40; Start 06/16/18 at 07:30 Acetaminophen (Tylenol) 1,000 mg PRN TID PRN PO PAIN / TEMP; Start 06/15/18 at 17:45 Amlodipine Besylate (Norvasc) 5 mg DAILY PO Last administered on 06/17/18at 09: 41; Start 06/16/18 at 09:00 Clotrimazole (Lotrimin) 1 hailee BID TP Last administered on 06/17/18at 15:06; Start 06/15/18 at 21:00 Ferrous Sulfate (Feosol) 325 mg Q48H PO Last administered on 06/17/18 09:40; Start 06/17/18 at 08:00 Folic Acid (Folic Acid) 1 mg DAILY PO Last administered on 06/17/18 09:40; Start 06/16/18 at 09:00 Levetiracetam (Keppra) 500 mg BID PO Last administered on 06/17/18 20:40; Start 06/15/18 at 21:00 Levofloxacin (Levaquin) 750 mg Q48H PO Last administered on 06/16/18 06:09; Start 06/16/18 at 06:00 Melatonin 3 mg PRN QHS PRN PO INSOMNIA; Start 06/15/18 at 17:45 Meloxicam (Mobic) 7.5 mg DAILYWBKFT PO Last administered on 06/17/18 09:40; Start 06/16/18 at 08:00 Pravastatin Sodium (Pravachol) 40 mg QHS PO Last administered on 06/17/18 20: 40; Start 06/15/18 at 21:00 Sertraline HCl (Zoloft) 100 mg DAILY PO Last administered on 06/17/18 09:41; Start 06/16/18 at 09:00 Donepezil HCl (Aricept) 5 mg HS PO Last administered on 06/17/18 20:40; Start 06/15/18 at 21:00 Haloperidol (Haldol) 2 mg PRN TID PRN PO ANXIETY / AGITATION Last administered on 06/17/18 15:43; Start 06/15/18 at 18:00; Stop 06/17/18 at 16:31; Status DC Sertraline HCl (Zoloft) 25 mg DAILY PO Last administered on 06/17/18 09:41; Start 06/16/18 at 09:00 Lactobacillus Rhamnosus (Culturelle) 1 cap BID PO Last administered on 20:40; Start 06/16/18 at 09:00 Olanzapine (ZyPREXA ZYDIS) 2.5 mg PRN Q2HR PRN PO PSYCHOSIS; Start 06/16/18 at 17:30 Active Scripts Active Reported Furosemide 20 Mg Tablet 20 Mg PO DAILYAC Levofloxacin 750 Mg Tablet 750 Mg PO Q48HRS Haloperidol (Haloperidol Lactate) 5 Mg/1 Ml Ampul 5 Mg IM PRN Q4HRS PRN Haloperidol 2 Mg Tablet 2 Mg PO TID PRN Zoloft (Sertraline Hcl) 25 Mg Tablet 25 Mg PO DAILY Zoloft (Sertraline Hcl) 100 Mg Tablet 100 Mg PO DAILY Pravastatin Sodium 40 Mg Tablet 40 Mg PO HS Meloxicam 7.5 Mg Tablet 7.5 Mg PO DAILYWBKFT Melatonin 3 Mg Tablet 3 Mg PO HS PRN Levetiracetam 500 Mg Tablet 500 Mg PO BID Folic Acid 1 Mg Tablet 1 Mg PO DAILY Ferrous Sulfate 324 Mg Tablet.dr 324 Mg PO Q48HRS Donepezil Hcl 5 Mg Tablet 5 Mg PO HS Vitamin B-12 (Cyanocobalamin (Vitamin B-12)) 1,000 Mcg Tablet 1,000 Mcg PO DAILY Clotrimazole 15 Gm Cream..g. 1 Hailee TP BID Amlodipine Besylate 5 Mg Tablet 5 Mg PO DAILY Albuterol Sulfate Neb Soln (Albuterol Sulfate) 2.5 Mg/3 Ml Vial.neb 3 Ml NEB PRN Q6HRS PRN Acetaminophen 500 Mg Tablet 1,000 Mg PO TID PRN I have reviewed the current psychotropics carefully including drug interactions. Risk benefit ratio favors no change other than as noted in my dictated progress note. Diagnosis: Problems: (1) Anxiety disorder (2) Dementia in Alzheimer's disease with delusions (3) Dementia in Alzheimer's disease with depression (4) Dementia, vascular, with delusions (5) Dementia, vascular, with depression (6) Impulse control disorder ANTWAN MUÑOZ MD Jun 17, 2018 23:14
[2018-06-18] MEDS: levoFLOXacin 750 MG TABLET PO SCH (06:32)
[2018-06-18 06:36] VITALS: BP 147/72
[2018-06-18] MEDS: FUROSEMIDE 20 MG TABLET PO SCH ×2 (07:30→09:45)
[2018-06-18] MEDS: MELOXICAM 7.5 MG TABLET PO SCH ×2 (08:00→09:46)
[2018-06-18] MEDS: SERTRALINE 100 MG TABLET. PO SCH ×2 (09:00→09:48)
[2018-06-18] MEDS: LACTOBACILLUS RHAMNOSUS GG 1 CAPSULE. PO SCH ×3 (09:00→19:31)
[2018-06-18] MEDS: SERTRALINE 25 MG TABLET. PO SCH ×2 (09:00→09:47)
[2018-06-18] MEDS: CLOTRIMAZOLE 1% TOPICAL CREAM 30GM TUBE. TP SCH ×2 (09:00→19:31)
[2018-06-18] MEDS: amLODIPine BESYLATE 5 MG TABLET PO SCH ×2 (09:00→09:47)
[2018-06-18] MEDS: FOLIC ACID 1 MG TABLET PO SCH ×2 (09:00→09:46)
[2018-06-18] MEDS: levETIRAcetam 500 MG TABLET PO SCH ×3 (09:00→19:30)
[2018-06-18] MEDS: CYANOCOBALAMIN (VITAMIN B-12) 1,000 MCG TABLET. PO SCH ×2 (09:00→09:47)
[2018-06-18] MEDS ORDERED: HALOPERIDOL LACT 5 MG/ML VIAL. IM SCH (15:15)
[2018-06-18 16:08] VITALS: BP 128/71
--- NOTE | 2018-06-18 16:11 | NUR ---
Assumed care of pt @ approx 0700. Pt sitting up in Day Room at the time of our initial encounter. Pt oriented to self only. No signs of hallucinations or delusions. Pt has shown violent, aggressive behaviors off and on throughout this shift. Pt has kicked and hit staff. During activities, the pts were painting pumpkins, and this pt threw a pumpkin at another pt. Pt was taken to the Secluded Hallway to get her away from the other pts and to reduce stimulation. Pt began hitting and kicking doors very hard. Attempted to administer PRN Zyprexa Zydis via syringe, but pt spit it out onto staff. This RN spoke with Dr. Barahona who was at the nurses' station, and he gave a verbal order for IM Zyprexa. However, when this RN entered the order, a warning came up stating that the medication contains milk products. The pt is severely allergic to dairy. This RN then paged Dr. العراقي, who advised that I should contact Pharmacy re: which meds might be effective that do not contain any dairy products. Per Pharmacy, IM Haldol would be safe. I then called Dr. العراقي back, and he indicated that he is ordering 2 mg Haldol IM to be administered daily. This RN administered IM Haldol. Pt is still in the Secluded Hallway, but has calmed down considerably. If pt remains calm, she will be allowed to come out of the Secluded Hallway shortly. Will continue to monitor and assist pt in working towards her treatment and discharge goals.
--- NOTE | 2018-06-18 16:48 | NUR ---
Attempted to meet and complete Activity Therapy Assessment at 1400 and 1530; however, Pt. was in SW group and then in the secured hallway
[2018-06-18] MEDS: DONEPEZIL HCL 5 MG TABLET. PO SCH (19:30)
[2018-06-18] MEDS: PRAVASTATIN 20 MG TABLET. PO SCH (19:31)
--- NOTE | 2018-06-18 21:33 | NUR ---
Nursing note; Assumed care of pt in her room. She was withdrawn but compliant w/meds and assessment. No agitation noted at this time, no c/o pain. She is alert to self.
--- NOTE | 2018-06-18 21:43 | PN ---
DATE: 06/17/2018 PSYCHIATRIC PROGRESS NOTE This late entry 06/17/2018 covers elements not covered in my initial note. SUBJECTIVE: I met with the patient in the evening. The patient slept 7-1/2 hours previous night. She had a good night, done well during the day. She remains anxious, somewhat obsessive, asking the staff when she can leave, oblivious of reasons, prompting admission. REVIEW OF SYSTEMS: No CV, , pulmonary, eye, ENT system symptoms on review. Reliability poor. She ambulates with a walker. MENTAL STATUS EXAM: Oriented to herself. Insight, judgment, recent and remote memory, attention, concentration, fund of knowledge poor, consistent with her diagnosis. Nursing staff had called me earlier in the day. She was quite agitated, paranoid, confused, received Haldol p.r.n. and has done "wonderfully" since then per nursing report. IMPRESSION: Major neurocognitive disorder, Alzheimer, vascular with delusion, depression, behavioral disturbance. Rest unchanged from initial note. PLAN: Continue Aricept 5 mg a day, Keppra 500 b.i.d. for seizures, Zoloft 125 mg daily, stop the Haldol p.r.n. Start Zyprexa 2.5 mg q.2 hours p.r.n. psychosis, agitation, max 10 mg in 24 hours. Make further adjustments in psychotropics as clinically indicated. ANTWAN MÑUOZ MD DR: ALBARO/dee JOB#: [id number] / [id number]
--- NOTE | 2018-06-18 23:14 | PDOC ---
Exam Note: Dinesh Note: Please also refer to the separate dictated note~for this date of service dictated separately.~Patient seen individually. Discussed the patient with Nursing staff reviewed the chart.~Reviewed interim history and current functioning. Reviewed vital signs,~Labs/ Radiology~and current medications noted below. Continue current treatment with the changes noted in the dictated addendum note Assessment: Vital Signs: Vital Signs Date Time Temp Pulse Resp B/P (MAP) Pulse Ox O2 Delivery O2 Flow Rate FiO2 06/18/18 16:08 98.3 104 24 128/71 (90) 93 Room Air I&O Intake and Output 06/18/18 07:00 Intake Total 600 ml Balance 600 ml Intake Oral 600 ml # Voids 1 Current Medications: Meds: Current Medications Acetaminophen (Tylenol) 650 mg PRN Q6HRS PRN PO PAIN / TEMP; Start 06/15/18 at 14:30; Status Cancel Multi-Ingredient Ointment (Analgesic [place]) 1 hailee PRN QID PRN TP MUSCLE PAIN; Start 06/15/18 at 14:30 Al Hydroxide/Mg Hydroxide (Mylanta Plus Xs) 15 ml PRN AFTMEALHC PRN PO DYSPEPSIA; Start 06/15/18 at 14:30 Magnesium Hydroxide (Milk Of Magnesia) 2,400 mg PRN QHS PRN PO CONSTIPATION; Start 06/15/18 at 14:30 Albuterol Sulfate (Ventolin) 2.5 mg PRN Q6HRS PRN NEB SHORTNESS OF BREATH; Start 06/15/18 at 17:30 Cyanocobalamin (Vitamin B-12) 1,000 mcg DAILY PO Last administered on at 09:41; Start 06/16/18 at 09:00 Furosemide (Lasix) 20 mg DAILYAC PO Last administered on 06/17/18at 09:40; Start 06/16/18 at 07:30 Acetaminophen (Tylenol) 1,000 mg PRN TID PRN PO PAIN / TEMP; Start 06/15/18 at 17:45 Amlodipine Besylate (Norvasc) 5 mg DAILY PO Last administered on 06/17/18at 09: 41; Start 06/16/18 at 09:00 Clotrimazole (Lotrimin) 1 hailee BID TP Last administered on 06/18/18at 19:31; Start 06/15/18 at 21:00 Ferrous Sulfate (Feosol) 325 mg Q48H PO Last administered on 06/17/18 09:40; Start 06/17/18 at 08:00 Folic Acid (Folic Acid) 1 mg DAILY PO Last administered on 06/17/18 09:40; Start 06/16/18 at 09:00 Levetiracetam (Keppra) 500 mg BID PO Last administered on 06/18/18 19:30; Start 06/15/18 at 21:00 Levofloxacin (Levaquin) 750 mg Q48H PO Last administered on 06/18/18 06:32; Start 06/16/18 at 06:00 Melatonin 3 mg PRN QHS PRN PO INSOMNIA; Start 06/15/18 at 17:45 Meloxicam (Mobic) 7.5 mg DAILYWBKFT PO Last administered on 06/17/18 09:40; Start 06/16/18 at 08:00 Pravastatin Sodium (Pravachol) 40 mg QHS PO Last administered on 06/18/18 19: 31; Start 06/15/18 at 21:00 Sertraline HCl (Zoloft) 100 mg DAILY PO Last administered on 06/17/18 09:41; Start 06/16/18 at 09:00 Donepezil HCl (Aricept) 5 mg HS PO Last administered on 06/18/18 19:30; Start 06/15/18 at 21:00 Haloperidol (Haldol) 2 mg PRN TID PRN PO ANXIETY / AGITATION Last administered on 06/17/18 15:43; Start 06/15/18 at 18:00; Stop 06/17/18 at 16:31; Status DC Sertraline HCl (Zoloft) 25 mg DAILY PO Last administered on 06/17/18 09:41; Start 06/16/18 at 09:00 Lactobacillus Rhamnosus (Culturelle) 1 cap BID PO Last administered on 19:31; Start 06/16/18 at 09:00 Olanzapine (ZyPREXA ZYDIS) 2.5 mg PRN Q2HR PRN PO PSYCHOSIS; Start 06/16/18 at 17:30 Haloperidol Lactate (Haldol) 2 mg DAILY IM Last administered on 10/30/18at 15: 32; Start 06/18/18 at 15:15; Stop 06/18/18 at 16:43; Status DC Haloperidol (Haldol) 2 mg DAILY PO ; Start 06/19/18 at 09:00 Active Scripts Active Reported Furosemide 20 Mg Tablet 20 Mg PO DAILYAC Levofloxacin 750 Mg Tablet 750 Mg PO Q48HRS Haloperidol (Haloperidol Lactate) 5 Mg/1 Ml Ampul 5 Mg IM PRN Q4HRS PRN Haloperidol 2 Mg Tablet 2 Mg PO TID PRN Zoloft (Sertraline Hcl) 25 Mg Tablet 25 Mg PO DAILY Zoloft (Sertraline Hcl) 100 Mg Tablet 100 Mg PO DAILY Pravastatin Sodium 40 Mg Tablet 40 Mg PO HS Meloxicam 7.5 Mg Tablet 7.5 Mg PO DAILYWBKFT Melatonin 3 Mg Tablet 3 Mg PO HS PRN Levetiracetam 500 Mg Tablet 500 Mg PO BID Folic Acid 1 Mg Tablet 1 Mg PO DAILY Ferrous Sulfate 324 Mg Tablet.dr 324 Mg PO Q48HRS Donepezil Hcl 5 Mg Tablet 5 Mg PO HS Vitamin B-12 (Cyanocobalamin (Vitamin B-12)) 1,000 Mcg Tablet 1,000 Mcg PO DAILY Clotrimazole 15 Gm Cream..g. 1 Hailee TP BID Amlodipine Besylate 5 Mg Tablet 5 Mg PO DAILY Albuterol Sulfate Neb Soln (Albuterol Sulfate) 2.5 Mg/3 Ml Vial.neb 3 Ml NEB PRN Q6HRS PRN Acetaminophen 500 Mg Tablet 1,000 Mg PO TID PRN I have reviewed the current psychotropics carefully including drug interactions. Risk benefit ratio favors no change other than as noted in my dictated progress note. Diagnosis: Problems: (1) Anxiety disorder (2) Dementia in Alzheimer's disease with delusions (3) Dementia in Alzheimer's disease with depression (4) Dementia, vascular, with delusions (5) Dementia, vascular, with depression (6) Impulse control disorder ANTWAN MUÑOZ MD Jun 18, 2018 23:14
[2018-06-19 05:52] VITALS: BP 150/76
[2018-06-19] MEDS: SERTRALINE 100 MG TABLET. PO SCH (08:00)
[2018-06-19] MEDS: CYANOCOBALAMIN (VITAMIN B-12) 1,000 MCG TABLET. PO SCH (08:00)
[2018-06-19] MEDS: FERROUS SULFATE 325 MG TABLET. PO SCH (08:00)
[2018-06-19] MEDS: MELOXICAM 7.5 MG TABLET PO SCH (08:00)
[2018-06-19] MEDS: SERTRALINE 25 MG TABLET. PO SCH (08:00)
[2018-06-19] MEDS: amLODIPine BESYLATE 5 MG TABLET PO SCH (08:01)
[2018-06-19] MEDS: levETIRAcetam 500 MG TABLET PO SCH ×2 (08:01→19:22)
[2018-06-19] MEDS: LACTOBACILLUS RHAMNOSUS GG 1 CAPSULE. PO SCH ×2 (08:01→19:22)
[2018-06-19] MEDS: FUROSEMIDE 20 MG TABLET PO SCH (08:02)
[2018-06-19] MEDS: FOLIC ACID 1 MG TABLET PO SCH (08:02)
[2018-06-19] MEDS: HALOPERIDOL 2 MG TABLET PO SCH (08:04)
[2018-06-19] MEDS: CLOTRIMAZOLE 1% TOPICAL CREAM 30GM TUBE. TP SCH ×2 (08:05→19:51)
--- NOTE | 2018-06-19 10:30 | NUR ---
Activity Therapy Assessment: Patient was sitting down during the assessment. Patient was able to verbally express herself and remembers her family, past, but not current location. Patient can make most independent decisions however will need help with some ADLS. Patient uses a walker to ambulate and is allergic to dairy. Initial Treatment Goal: To increase motivation and recreation education by participating in at least 5 groups per week.
--- NOTE | 2018-06-19 10:35 | NUR ---
Psychosocial Assessment Admit Date: 06/15/18 Psychiatrist: None Medical Physician: Currently none; saw [place] physician Assessment Informants: pt and pt dtr Sex of Patient: Female Race: Age: 88 Living Situation: was living with family Plans For Return: plans to find Legal status: DPOA Name of Legally Responsible Person: Sharona Gibbs Contacts: Name: Sharona Gibbs Family Background and Relationships Marital status: SW did not ask; however, pt is still living and is independent. 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 Pt has 2 daughters who are very supportive. Marital (Cohabitation)/Sexual Orientation Issues: heterosexual Family support And their Participation in therapy: Family is very involved in pt treatment and would like to participate in all team decisions. 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 [employer] History of Legal Difficulties: None Preferred Leisure Activities: likes exercise and used to like craft activities Spiritual/Pentecostalism Involvement: Taoist Service: None Financial Situation: "Dad will pay whatever it takes" Resources: Medicare, [employer] Financial Problems/Needs: None Republican Responsible for Handling Patient's Finances: Dtr Sharona and pt Historical Data Childhood History: n/a Cultural/Spiritual History Factors that may impact treatment: None History of Sexual/Physical Abuse of Neglect: None noted History of Substance Abuse: None in the last 12 months Psychiatric History: No prior psychiatric history. Pt has been to physical rehabilitation less than a year ago. Presenting Problems Presenting Problems/Criteria for admission: aggressive, throwing food, confusion Patient's Current Intrinsic Strengths: up ad dat with RW, financial support, family support Patient's Current Intrinsic Weaknesses: poor cognition, no current placement Social Work Treatment Plan Identified Problems 1.) no placement 2.) poor cognition 3.) aggressive behaviors Goals for Treatment: behavioral and medication modifications Family Goals for Treatment: Social work Intervention: Group therapy per week:2-5x To increase positive, calm feelings. To Increase Socialization. To Teach and Practice Effective coping skills in a social setting. Individual Therapy Per Week: As needed. Using validation to increase calm and positive feelings. To encourage self-expression. To work on grief/loss and adjustment issues. To teach and practice effective coping skills. To educate about diagnoses, team recommendations etc.. Family Support and Education: As needed. Support family grief/adjustment process. Educate about Psychiatric/Behavioral problems and treatment recommendations. Patient's Educational Needs to be addressed in Treatment: Diagnosis, Treatment plan, Medication and Discharge Planning. Initial Discharge Plan: Treatment team to be held on to discuss behaviors, medications, goals and ELOS Plan for communication of Psychiatric Follow up and Continuing Care Instructions to family and Care Givers: Written and verbal communication. ADDITIONAL NOTE: Pt is very confused and was in the hallway. SW attempted to talk to pt for a bit but couldn't get pt to answer a ton of questions. SW did contact pt dtr to find out information. Pt dtr would like to be called with updates and wishes to participate in treatment team. SW explained to pt dtr that she could call nursing any time for an update and explained SW role in helping with discharge planning. Pt dtr and SW also talked about tx team being a short 5 minute meeting, as pt dtr wanted to be there in person. Pt dtr was not concerned with the drive or the 5 minute time.
--- NOTE | 2018-06-19 14:17 | NUR ---
Behavior Intervention Response and Plan: BIRP Note: Behavior: Assumed Care of patient, patient located in Hallway at shift change. Patient exhibited the following behavior Calm, Compliant, Cooperative. Brief assessment on rounds of vital signs, medication needs, lab studies, and pain. Treatment plan problems dementia w/ bd and fall risk. Intervention: Patient assessed and the following interventions initiated safety checks 15 Minute Checks Head to toe Assessment , Cognitive Assessment , Medications. Response: After interactions and interventions patient responded in the following manner, Calm , Compliant ,Cooperative. Continue to assess behaviors and condition will continue to monitor throughout the shift as needed. Patient educated on ADL's, and hand hygiene. Plan: Continue to monitor Master Treatment Plan for patient's progress toward short term goals of Decreased Anxiety, Decreased Agitation, usp goals to return to previous living setting vs placement. Continue to assess patient for changes in above assessment. Monitor for medication needs, pain, and safety concerns. Hourly rounding performed to ensure safe environment.
[2018-06-19 16:39] VITALS: BP 126/71
[2018-06-19] MEDS: DONEPEZIL HCL 5 MG TABLET. PO SCH (19:22)
[2018-06-19] MEDS: PRAVASTATIN 20 MG TABLET. PO SCH (19:23)
[2018-06-19] MEDS: CHOLECALCIFEROL (VITAMIN D3) 50,000 UNIT CAPSULE PO SCH (19:51)
--- NOTE | 2018-06-19 21:01 | NUR ---
Nursing note: Assumed care of pt in the day room. She was sleeping on the couch but was easily awakened. She was pleasant but confused and compliant w/meds and assessment. She had no c/o pain. No agitation.
--- NOTE | 2018-06-19 22:26 | PN ---
DATE: 06/18/2018 PSYCHIATRIC PROGRESS NOTE This late entry 06/18/2018 covers elements not covered in my initial note. SUBJECTIVE: I met with the patient in the evening. The patient slept 7-1/2 hours previous night. Nursing staff had called me as an emergency earlier in the day. The patient was yelling, screaming, hitting on the glass doors, banging on doors, agitated, psychotic. She threw a pumpkin at another patient, was hitting, kicking, biting staff, banging the doors. She was refusing all psychotropics and oral meds were not helping her. We started on Haldol IM 2 mg scheduled daily. By the evening when I saw her, she was much better, less paranoid, still somewhat suspicious as I met with her. REVIEW OF SYSTEMS: No CV, , pulmonary, eye, ENT system symptoms on review. Reliability poor. Ambulation impaired with walker. MENTAL STATUS EXAM: Oriented to herself. Insight, judgment, recent and remote memory, attention, concentration, fund of knowledge poor, consistent with her diagnosis mentioned in my initial note. IMPRESSION: Major neurocognitive disorder, Alzheimer, vascular with delusion, depression, behavioral disturbance; anxiety disorder, unspecified; impulse control disorder, unspecified. Rest unchanged from initial note. PLAN: Start Haldol 2 mg p.o. daily scheduled. Continue Zoloft 125 mg a day, Aricept 5 mg at bedtime. Discontinue the IM Haldol. Maintain Keppra 500 mg b.i.d. for seizures, melatonin at bedtime p.r.n., Zyprexa p.r.n. ANTWAN MUÑOZ MD DR: ALBARO/dee JOB#: [id number] / [id number]
--- NOTE | 2018-06-19 23:28 | PDOC ---
Exam Note: Dinesh Note: Please also refer to the separate dictated note~for this date of service dictated separately.~Patient seen individually. Discussed the patient with Nursing staff reviewed the chart.~Reviewed interim history and current functioning. Reviewed vital signs,~Labs/ Radiology~and current medications noted below. Continue current treatment with the changes noted in the dictated addendum note Assessment: Vital Signs: Vital Signs Date Time Temp Pulse Resp B/P (MAP) Pulse Ox O2 Delivery O2 Flow Rate FiO2 06/19/18 16:39 97.9 78 18 126/71 (89) 92 06/18/18 16:08 Room Air I&O Intake and Output 06/19/18 07:00 Intake Total 600 ml Balance 600 ml Intake Oral 600 ml Current Medications: Meds: Current Medications Acetaminophen (Tylenol) 650 mg PRN Q6HRS PRN PO PAIN / TEMP; Start 06/15/18 at 14:30; Status Cancel Multi-Ingredient Ointment (Analgesic [place]) 1 hailee PRN QID PRN TP MUSCLE PAIN; Start 06/15/18 at 14:30 Al Hydroxide/Mg Hydroxide (Mylanta Plus Xs) 15 ml PRN AFTMEALHC PRN PO DYSPEPSIA; Start 06/15/18 at 14:30 Magnesium Hydroxide (Milk Of Magnesia) 2,400 mg PRN QHS PRN PO CONSTIPATION; Start 06/15/18 at 14:30 Albuterol Sulfate (Ventolin) 2.5 mg PRN Q6HRS PRN NEB SHORTNESS OF BREATH; Start 06/15/18 at 17:30 Cyanocobalamin (Vitamin B-12) 1,000 mcg DAILY PO Last administered on at 08:00; Start 06/16/18 at 09:00 Furosemide (Lasix) 20 mg DAILYAC PO Last administered on 06/19/18at 08:02; Start 06/16/18 at 07:30 Acetaminophen (Tylenol) 1,000 mg PRN TID PRN PO PAIN / TEMP Last administered on 06/19/18at 05:45; Start 06/15/18 at 17:45 Amlodipine Besylate (Norvasc) 5 mg DAILY PO Last administered on 06/19/18at 08: 01; Start 06/16/18 at 09:00 Clotrimazole (Lotrimin) 1 hailee BID TP Last administered on 06/19/18 08:05; Start 06/15/18 at 21:00 Ferrous Sulfate (Feosol) 325 mg Q48H PO Last administered on 06/19/18 08:00; Start 06/17/18 at 08:00 Folic Acid (Folic Acid) 1 mg DAILY PO Last administered on 06/19/18 08:02; Start 06/16/18 at 09:00 Levetiracetam (Keppra) 500 mg BID PO Last administered on 06/19/18 19:22; Start 06/15/18 at 21:00 Levofloxacin (Levaquin) 750 mg Q48H PO Last administered on 06/18/18 06:32; Start 06/16/18 at 06:00; Stop 06/19/18 at 15:54; Status DC Melatonin 3 mg PRN QHS PRN PO INSOMNIA; Start 06/15/18 at 17:45 Meloxicam (Mobic) 7.5 mg DAILYWBKFT PO Last administered on 06/19/18at 08:00; Start 06/16/18 at 08:00 Pravastatin Sodium (Pravachol) 40 mg QHS PO Last administered on 06/19/18 19: 23; Start 06/15/18 at 21:00 Sertraline HCl (Zoloft) 100 mg DAILY PO Last administered on 06/19/18 08:00; Start 06/16/18 at 09:00 Donepezil HCl (Aricept) 5 mg HS PO Last administered on 06/19/18 19:22; Start 06/15/18 at 21:00 Haloperidol (Haldol) 2 mg PRN TID PRN PO ANXIETY / AGITATION Last administered on 06/17/18at 15:43; Start 06/15/18 at 18:00; Stop 06/17/18 at 16:31; Status DC Sertraline HCl (Zoloft) 25 mg DAILY PO Last administered on 06/19/18 08:00; Start 06/16/18 at 09:00 Lactobacillus Rhamnosus (Culturelle) 1 cap BID PO Last administered on 19:22; Start 06/16/18 at 09:00 Olanzapine (ZyPREXA ZYDIS) 2.5 mg PRN Q2HR PRN PO PSYCHOSIS; Start 06/16/18 at 17:30 Haloperidol Lactate (Haldol) 2 mg DAILY IM Last administered on 06/18/18at 15: 32; Start 06/18/18 at 15:15; Stop 06/18/18 at 16:43; Status DC Haloperidol (Haldol) 2 mg DAILY PO Last administered on 06/19/18at 08:04; Start 06/19/18 at 09:00 Vitamin D (Vitamin D3) 50,000 unit WEEKLY PO Last administered on 06/19/18at 19 :51; Start 06/19/18 at 21:00 Active Scripts Active Reported Furosemide 20 Mg Tablet 20 Mg PO DAILYAC Levofloxacin 750 Mg Tablet 750 Mg PO Q48HRS Haloperidol (Haloperidol Lactate) 5 Mg/1 Ml Ampul 5 Mg IM PRN Q4HRS PRN Haloperidol 2 Mg Tablet 2 Mg PO TID PRN Zoloft (Sertraline Hcl) 25 Mg Tablet 25 Mg PO DAILY Zoloft (Sertraline Hcl) 100 Mg Tablet 100 Mg PO DAILY Pravastatin Sodium 40 Mg Tablet 40 Mg PO HS Meloxicam 7.5 Mg Tablet 7.5 Mg PO DAILYWBKFT Melatonin 3 Mg Tablet 3 Mg PO HS PRN Levetiracetam 500 Mg Tablet 500 Mg PO BID Folic Acid 1 Mg Tablet 1 Mg PO DAILY Ferrous Sulfate 324 Mg Tablet.dr 324 Mg PO Q48HRS Donepezil Hcl 5 Mg Tablet 5 Mg PO HS Vitamin B-12 (Cyanocobalamin (Vitamin B-12)) 1,000 Mcg Tablet 1,000 Mcg PO DAILY Clotrimazole 15 Gm Cream..g. 1 Hailee TP BID Amlodipine Besylate 5 Mg Tablet 5 Mg PO DAILY Albuterol Sulfate Neb Soln (Albuterol Sulfate) 2.5 Mg/3 Ml Vial.neb 3 Ml NEB PRN Q6HRS PRN Acetaminophen 500 Mg Tablet 1,000 Mg PO TID PRN I have reviewed the current psychotropics carefully including drug interactions. Risk benefit ratio favors no change other than as noted in my dictated progress note. Diagnosis: Problems: (1) Anxiety disorder (2) Dementia in Alzheimer's disease with delusions (3) Dementia in Alzheimer's disease with depression (4) Dementia, vascular, with delusions (5) Dementia, vascular, with depression (6) Impulse control disorder ANTWAN MUÑOZ MD Jun 19, 2018 23:28
[2018-06-20 05:49] VITALS: BP 112/63
[2018-06-20] MEDS: CYANOCOBALAMIN (VITAMIN B-12) 1,000 MCG TABLET. PO SCH (07:48)
[2018-06-20] MEDS: FOLIC ACID 1 MG TABLET PO SCH (07:48)
[2018-06-20] MEDS: MELOXICAM 7.5 MG TABLET PO SCH (07:48)
[2018-06-20] MEDS: LACTOBACILLUS RHAMNOSUS GG 1 CAPSULE. PO SCH ×2 (07:48→19:38)
[2018-06-20] MEDS: SERTRALINE 100 MG TABLET. PO SCH (07:48)
[2018-06-20] MEDS: SERTRALINE 25 MG TABLET. PO SCH (07:48)
[2018-06-20] MEDS: FUROSEMIDE 20 MG TABLET PO SCH (07:48)
[2018-06-20] MEDS: CLOTRIMAZOLE 1% TOPICAL CREAM 30GM TUBE. TP SCH ×2 (07:49→19:39)
[2018-06-20] MEDS: HALOPERIDOL 2 MG TABLET PO SCH (07:49)
[2018-06-20] MEDS: levETIRAcetam 500 MG TABLET PO SCH ×2 (07:49→19:38)
[2018-06-20] MEDS: amLODIPine BESYLATE 5 MG TABLET PO SCH (07:49)
--- NOTE | 2018-06-20 09:00 | NUR ---
WEEKLY ACTIVITY THERAPY NOTE Date of Admission: 06/15/2018 Date of AT Assessment: 06/19/2018 Goal aimed: To increase motivation and recreation education. Initial Goal: Pt will participate in at least five groups per week. Weekly progress towards goal: did not achieve Group participation level: minimal Behaviors observed: Pt. comes to some groups and participates with prompting; Pt. has significant behaviors in the afternoons and is often placed in the secluded hallway for de-escalation; Pt. is often confused and difficult to redirect Plan: no change to goal
--- NOTE | 2018-06-20 10:30 | NUR ---
Pt took playing cards from another pt and claimed they were hers demanding that she be paid before the pt would be allowed to use the cards. When this nurse asked for the cards and explained that the cards belonged to the hospital and she needed to share and wait her turn. Pt threw the cards all over the floor and then threw the box at this nurse. Pt was escorted out of the day room to "cool off."
--- NOTE | 2018-06-20 12:10 | NUR ---
Staff was unable to find pt's glasses before lunch today. When the pt's daughter's visited at lunch they told staff (Nohelia) that their mother was "great at hiding things." They specifically told of their mother hiding their father's camera and camera bag so well that it was missing for over a year.
--- NOTE | 2018-06-20 15:38 | NUR ---
Behavior Intervention Response and Plan: BIRP Note: Behavior: Assumed Care of patient, patient located in Dining Room at shift change. Patient exhibited the following behavior Disorganized, Compliant, Cooperative. Brief assessment on rounds of vital signs, medication needs, lab studies, and pain. Treatment plan problems dementia w/ bd and fall risk. Intervention: Patient assessed and the following interventions initiated safety checks 15 Minute Checks Medications , Head to toe Assessment , Cognitive Assessment. Response: After interactions and interventions patient responded in the following manner, Calm , Disorganized ,Agitated. Continue to assess behaviors and condition will continue to monitor throughout the shift as needed. Patient educated on ADL's, and hand hygiene. Plan: Continue to monitor Master Treatment Plan for patient's progress toward short term goals of Decreased Agitation, Decreased Anxiety, roasterman goals to return to previous living setting vs placement. Continue to assess patient for changes in above assessment. Monitor for medication needs, pain, and safety concerns. Hourly rounding performed to ensure safe environment.
[2018-06-20 16:14] VITALS: BP 117/66
--- NOTE | 2018-06-20 17:24 | NUR ---
WEEKLY UPDATE: Pt had intermittent periods of good and bad behaviors. Pt has shown a tendency in throwing things at others and hitting staff; but is cooperative with taking medications.. Pt dtrs participated in tx team and reports that pt is very particular about things and wants to ensure that pt is going to be able to get the care she needs while here on [facility] and at her next placement. SW will aid the family in sending referrals in which the dtrs stated "she must live in [place]".
[2018-06-20] MEDS: PRAVASTATIN 20 MG TABLET. PO SCH (19:39)
[2018-06-20] MEDS: DONEPEZIL HCL 5 MG TABLET. PO SCH (19:39)
--- NOTE | 2018-06-20 21:28 | PN ---
DATE: 06/19/2018 PSYCHIATRIC PROGRESS NOTE This late entry 06/19/2018 covers elements not covered in my initial note. SUBJECTIVE: I met with the patient in the evening. The patient slept 6-3/4 hours previous night. Levaquin was discontinued per Dr. Barahona. Nursing staff had called me earlier in the day. The patient became extremely paranoid, agitated, psychotic. At times, she is oriented to the year, who the President is and becomes much more confused. REVIEW OF SYSTEMS: No CV, , pulmonary, eye, ENT system symptoms on review. Reliability poor. MENTAL STATUS EXAM: Oriented to herself. Insight, judgment, recent and remote memory, attention, concentration, fund of knowledge poor, consistent with her diagnosis mentioned in my initial note. IMPRESSION: Major neurocognitive disorder, Alzheimer, vascular with delusion, depression, behavioral disturbance; anxiety disorder, unspecified; impulse control disorder, unspecified. PLAN: We will go ahead and start Haldol oral 2 mg a day. She seems to respond very positively to this for psychotic symptoms. Rest unchanged from initial note including Zoloft 125 mg a day, Aricept 5 mg a day, Keppra 500 b.i.d. for seizures, melatonin, along with Zyprexa p.r.n. We will go ahead and stop the Zyprexa p.r.n. due to her ALLERGY TO CLOZARIL. ANTWAN MUÑOZ MD DR: ALBARO/dee JOB#: [id number] / [id number]
--- NOTE | 2018-06-20 23:15 | PDOC ---
Exam Note: Dinesh Note: Please also refer to the separate dictated note~for this date of service dictated separately.~Patient seen individually. Discussed the patient with Nursing staff reviewed the chart.~Reviewed interim history and current functioning. Reviewed vital signs,~Labs/ Radiology~and current medications noted below. Continue current treatment with the changes noted in the dictated addendum note Assessment: Vital Signs: Vital Signs Date Time Temp Pulse Resp B/P (MAP) Pulse Ox O2 Delivery O2 Flow Rate FiO2 06/20/18 16:14 98.3 95 16 117/66 (83) 93 Room Air I&O Intake and Output 06/20/18 07:00 Intake Total 940 ml Balance 940 ml Intake Oral 940 ml # Bowel Movements 1 Current Medications: Meds: Current Medications Acetaminophen (Tylenol) 650 mg PRN Q6HRS PRN PO PAIN / TEMP; Start 06/15/18 at 14:30; Status Cancel Multi-Ingredient Ointment (Analgesic [place]) 1 hailee PRN QID PRN TP MUSCLE PAIN; Start 06/15/18 at 14:30 Al Hydroxide/Mg Hydroxide (Mylanta Plus Xs) 15 ml PRN AFTMEALHC PRN PO DYSPEPSIA; Start 06/15/18 at 14:30 Magnesium Hydroxide (Milk Of Magnesia) 2,400 mg PRN QHS PRN PO CONSTIPATION; Start 06/15/18 at 14:30 Albuterol Sulfate (Ventolin) 2.5 mg PRN Q6HRS PRN NEB SHORTNESS OF BREATH; Start 06/15/18 at 17:30 Cyanocobalamin (Vitamin B-12) 1,000 mcg DAILY PO Last administered on at 07:48; Start 06/16/18 at 09:00 Furosemide (Lasix) 20 mg DAILYAC PO Last administered on 06/20/18at 07:48; Start 06/16/18 at 07:30 Acetaminophen (Tylenol) 1,000 mg PRN TID PRN PO PAIN / TEMP Last administered on 06/19/18at 05:45; Start 06/15/18 at 17:45 Amlodipine Besylate (Norvasc) 5 mg DAILY PO Last administered on 06/20/18at 07: 49; Start 06/16/18 at 09:00 Clotrimazole (Lotrimin) 1 hailee BID TP Last administered on 06/20/18 19:39; Start 06/15/18 at 21:00 Ferrous Sulfate (Feosol) 325 mg Q48H PO Last administered on 06/19/18 08:00; Start 06/17/18 at 08:00 Folic Acid (Folic Acid) 1 mg DAILY PO Last administered on 06/20/18 07:48; Start 06/16/18 at 09:00 Levetiracetam (Keppra) 500 mg BID PO Last administered on 06/20/18 19:38; Start 06/15/18 at 21:00 Levofloxacin (Levaquin) 750 mg Q48H PO Last administered on 06/18/18 06:32; Start 06/16/18 at 06:00; Stop 06/19/18 at 15:54; Status DC Melatonin 3 mg PRN QHS PRN PO INSOMNIA; Start 06/15/18 at 17:45 Meloxicam (Mobic) 7.5 mg DAILYWBKFT PO Last administered on 06/20/18 07:48; Start 06/16/18 at 08:00 Pravastatin Sodium (Pravachol) 40 mg QHS PO Last administered on 06/20/18 19: 39; Start 06/15/18 at 21:00 Sertraline HCl (Zoloft) 100 mg DAILY PO Last administered on 06/20/18 07:48; Start 06/16/18 at 09:00 Donepezil HCl (Aricept) 5 mg HS PO Last administered on 06/20/18 19:39; Start 06/15/18 at 21:00 Haloperidol (Haldol) 2 mg PRN TID PRN PO ANXIETY / AGITATION Last administered on 06/17/18at 15:43; Start 06/15/18 at 18:00; Stop 06/17/18 at 16:31; Status DC Sertraline HCl (Zoloft) 25 mg DAILY PO Last administered on 06/20/18 07:48; Start 06/16/18 at 09:00 Lactobacillus Rhamnosus (Culturelle) 1 cap BID PO Last administered on 19:38; Start 06/16/18 at 09:00 Olanzapine (ZyPREXA ZYDIS) 2.5 mg PRN Q2HR PRN PO PSYCHOSIS Last administered on 11/1/18at 11:16; Start 06/16/18 at 17:30 Haloperidol Lactate (Haldol) 2 mg DAILY IM Last administered on 06/18/18at 15: 32; Start 06/18/18 at 15:15; Stop 06/18/18 at 16:43; Status DC Haloperidol (Haldol) 2 mg DAILY PO Last administered on 06/20/18at 07:49; Start 06/19/18 at 09:00 Vitamin D (Vitamin D3) 50,000 unit WEEKLY PO Last administered on 06/19/18at 19 :51; Start 06/19/18 at 21:00 Active Scripts Active Reported Furosemide 20 Mg Tablet 20 Mg PO DAILYAC Levofloxacin 750 Mg Tablet 750 Mg PO Q48HRS Haloperidol (Haloperidol Lactate) 5 Mg/1 Ml Ampul 5 Mg IM PRN Q4HRS PRN Haloperidol 2 Mg Tablet 2 Mg PO TID PRN Zoloft (Sertraline Hcl) 25 Mg Tablet 25 Mg PO DAILY Zoloft (Sertraline Hcl) 100 Mg Tablet 100 Mg PO DAILY Pravastatin Sodium 40 Mg Tablet 40 Mg PO HS Meloxicam 7.5 Mg Tablet 7.5 Mg PO DAILYWBKFT Melatonin 3 Mg Tablet 3 Mg PO HS PRN Levetiracetam 500 Mg Tablet 500 Mg PO BID Folic Acid 1 Mg Tablet 1 Mg PO DAILY Ferrous Sulfate 324 Mg Tablet.dr 324 Mg PO Q48HRS Donepezil Hcl 5 Mg Tablet 5 Mg PO HS Vitamin B-12 (Cyanocobalamin (Vitamin B-12)) 1,000 Mcg Tablet 1,000 Mcg PO DAILY Clotrimazole 15 Gm Cream..g. 1 Hailee TP BID Amlodipine Besylate 5 Mg Tablet 5 Mg PO DAILY Albuterol Sulfate Neb Soln (Albuterol Sulfate) 2.5 Mg/3 Ml Vial.neb 3 Ml NEB PRN Q6HRS PRN Acetaminophen 500 Mg Tablet 1,000 Mg PO TID PRN I have reviewed the current psychotropics carefully including drug interactions. Risk benefit ratio favors no change other than as noted in my dictated progress note. Diagnosis: Problems: (1) Anxiety disorder (2) Dementia in Alzheimer's disease with delusions (3) Dementia in Alzheimer's disease with depression (4) Dementia, vascular, with delusions (5) Dementia, vascular, with depression (6) Impulse control disorder ANTWAN MUÑOZ MD Jun 20, 2018 23:15
--- NOTE | 2018-06-21 00:20 | NUR ---
Pt in day room at shift change, she appears to be restless. Pt irritable but cooperative; is compliant w/meds & assessment.
[2018-06-21 06:21] VITALS: BP 165/79
[2018-06-21] MEDS: CYANOCOBALAMIN (VITAMIN B-12) 1,000 MCG TABLET. PO SCH (07:46)
[2018-06-21] MEDS: HALOPERIDOL 2 MG TABLET PO SCH (07:46)
[2018-06-21] MEDS: FOLIC ACID 1 MG TABLET PO SCH (07:46)
[2018-06-21] MEDS: LACTOBACILLUS RHAMNOSUS GG 1 CAPSULE. PO SCH ×2 (07:47→20:24)
[2018-06-21] MEDS: levETIRAcetam 500 MG TABLET PO SCH ×2 (07:47→20:24)
[2018-06-21] MEDS: SERTRALINE 100 MG TABLET. PO SCH (07:47)
[2018-06-21] MEDS: amLODIPine BESYLATE 5 MG TABLET PO SCH (07:47)
[2018-06-21] MEDS: MELOXICAM 7.5 MG TABLET PO SCH (07:47)
[2018-06-21] MEDS: SERTRALINE 25 MG TABLET. PO SCH (07:47)
[2018-06-21] MEDS: FERROUS SULFATE 325 MG TABLET. PO SCH (07:47)
[2018-06-21] MEDS: FUROSEMIDE 20 MG TABLET PO SCH (07:47)
[2018-06-21] MEDS: CLOTRIMAZOLE 1% TOPICAL CREAM 30GM TUBE. TP SCH ×2 (07:48→20:25)
--- NOTE | 2018-06-21 09:37 | NUR ---
Behavior Intervention Response and Plan: BIRP Note: Behavior: Assumed Care of patient, patient located in Dining Room at shift change. Patient exhibited the following behavior Disorganized, Calm, Withdrawn. Brief assessment on rounds of vital signs, medication needs, lab studies, and pain. Treatment plan problems . Intervention: Patient assessed and the following interventions initiated safety checks 15 Minute Checks Cognitive Assessment , Head to toe Assessment , Medications. Response: After interactions and interventions patient responded in the following manner, Disorganized , Calm. Continue to assess behaviors and condition will continue to monitor throughout the shift as needed. Patient educated on ADL's, and hand hygiene. 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 Continue to assess patient for changes in above assessment. Monitor for medication needs, pain, and safety concerns. Hourly rounding performed to ensure safe environment.
[2018-06-21 15:53] VITALS: BP 111/67
--- NOTE | 2018-06-21 18:25 | NUR ---
pt up adl to meals. has been in pleasant spirits. compliant with meds.
[2018-06-21] MEDS: DONEPEZIL HCL 10 MG TABLET PO SCH (20:23)
[2018-06-21] MEDS: PRAVASTATIN 20 MG TABLET. PO SCH (20:24)
--- NOTE | 2018-06-21 22:35 | PN ---
DATE: 06/20/2018 PSYCHIATRIC PROGRESS NOTE This late entry 06/20/2018 covers elements not covered in my initial note. SUBJECTIVE: I met with the patient in the evening and staffed at a treatment team meeting with the entire team in the morning. The patient's 2 daughters, Kate and Sharona, attended and son-in-law, [place], who is the pharmacist attended as well over the phone. Family described at great length patient's progressive confusion, memory loss, episodes of agitation, and her past history of having excessive phlegm with any medications that have milk products. Reportedly, avoiding this helps her behaviorally as well. She has responded very well to Haldol oral scheduled with marked improvement in her paranoia, which can be quite significant at times. REVIEW OF SYSTEMS: No CV, , pulmonary, eye, ENT system symptoms on review. Reliability poor. Ambulation poor with walker. MENTAL STATUS EXAM: Oriented to herself. Insight, judgment, recent and remote memory, attention, concentration, fund of knowledge poor, consistent with her diagnosis mentioned in my initial note. IMPRESSION: Major neurocognitive disorder, Alzheimer, vascular with delusion, depression, behavioral disturbance; anxiety disorder, unspecified; impulse control disorder, unspecified seizure disorder. She has had a single episode, remains on Keppra. PLAN: Continue Haldol 2 mg daily, Zoloft 125 mg a day, Aricept 5 mg a day, may need to adjust this and maintain melatonin p.r.n. MAN Davide MUÑOZ MD DR: ALBARO/dee JOB#: [id number] / [id number]
--- NOTE | 2018-06-21 23:12 | PDOC ---
Exam Note: Dinesh Note: Please also refer to the separate dictated note~for this date of service dictated separately.~Patient seen individually. Discussed the patient with Nursing staff reviewed the chart.~Reviewed interim history and current functioning. Reviewed vital signs,~Labs/ Radiology~and current medications noted below. Continue current treatment with the changes noted in the dictated addendum note Assessment: Vital Signs: Vital Signs Date Time Temp Pulse Resp B/P (MAP) Pulse Ox O2 Delivery O2 Flow Rate FiO2 06/21/18 15:53 97.5 95 20 111/67 (82) 95 Room Air I&O Intake and Output 06/21/18 07:00 Intake Total 1080 ml Balance 1080 ml Intake Oral 1080 ml # Voids 1 Current Medications: Meds: Current Medications Acetaminophen (Tylenol) 650 mg PRN Q6HRS PRN PO PAIN / TEMP; Start 06/15/18 at 14:30; Status Cancel Multi-Ingredient Ointment (Analgesic [place]) 1 hailee PRN QID PRN TP MUSCLE PAIN; Start 06/15/18 at 14:30 Al Hydroxide/Mg Hydroxide (Mylanta Plus Xs) 15 ml PRN AFTMEALHC PRN PO DYSPEPSIA; Start 06/15/18 at 14:30 Magnesium Hydroxide (Milk Of Magnesia) 2,400 mg PRN QHS PRN PO CONSTIPATION; Start 06/15/18 at 14:30 Albuterol Sulfate (Ventolin) 2.5 mg PRN Q6HRS PRN NEB SHORTNESS OF BREATH; Start 06/15/18 at 17:30 Cyanocobalamin (Vitamin B-12) 1,000 mcg DAILY PO Last administered on at 07:46; Start 06/16/18 at 09:00 Furosemide (Lasix) 20 mg DAILYAC PO Last administered on 06/21/18at 07:47; Start 06/16/18 at 07:30 Acetaminophen (Tylenol) 1,000 mg PRN TID PRN PO PAIN / TEMP Last administered on 06/19/18at 05:45; Start 06/15/18 at 17:45 Amlodipine Besylate (Norvasc) 5 mg DAILY PO Last administered on 06/21/18at 07: 47; Start 06/16/18 at 09:00 Clotrimazole (Lotrimin) 1 hailee BID TP Last administered on 06/21/18 20:25; Start 06/15/18 at 21:00 Ferrous Sulfate (Feosol) 325 mg Q48H PO Last administered on 06/21/18 07:47; Start 06/17/18 at 08:00 Folic Acid (Folic Acid) 1 mg DAILY PO Last administered on 06/21/18 07:46; Start 06/16/18 at 09:00 Levetiracetam (Keppra) 500 mg BID PO Last administered on 06/21/18 20:24; Start 06/15/18 at 21:00 Levofloxacin (Levaquin) 750 mg Q48H PO Last administered on 06/18/18 06:32; Start 06/16/18 at 06:00; Stop 06/19/18 at 15:54; Status DC Melatonin 3 mg PRN QHS PRN PO INSOMNIA; Start 06/15/18 at 17:45 Meloxicam (Mobic) 7.5 mg DAILYWBKFT PO Last administered on 06/21/18 07:47; Start 06/16/18 at 08:00 Pravastatin Sodium (Pravachol) 40 mg QHS PO Last administered on 06/21/18 20: 24; Start 06/15/18 at 21:00 Sertraline HCl (Zoloft) 100 mg DAILY PO Last administered on 06/21/18 07:47; Start 06/16/18 at 09:00 Donepezil HCl (Aricept) 5 mg HS PO Last administered on 06/20/18at 19:39; Start 06/15/18 at 21:00; Stop 06/21/18 at 20:23; Status DC Haloperidol (Haldol) 2 mg PRN TID PRN PO ANXIETY / AGITATION Last administered on 06/17/18at 15:43; Start 06/15/18 at 18:00; Stop 06/17/18 at 16:31; Status DC Sertraline HCl (Zoloft) 25 mg DAILY PO Last administered on 06/21/18 07:47; Start 06/16/18 at 09:00 Lactobacillus Rhamnosus (Culturelle) 1 cap BID PO Last administered on at 20:24; Start 06/16/18 at 09:00 Olanzapine (ZyPREXA ZYDIS) 2.5 mg PRN Q2HR PRN PO PSYCHOSIS Last administered on 06/20/18at 11:16; Start 06/16/18 at 17:30; Stop 06/21/18 at 16:57; Status DC Haloperidol Lactate (Haldol) 2 mg DAILY IM Last administered on 06/18/18at 15: 32; Start 06/18/18 at 15:15; Stop 06/18/18 at 16:43; Status DC Haloperidol (Haldol) 2 mg DAILY PO Last administered on 06/21/18at 07:46; Start 06/19/18 at 09:00 Vitamin D (Vitamin D3) 50,000 unit WEEKLY PO Last administered on 06/19/18at 19 :51; Start 06/19/18 at 21:00 Donepezil HCl (Aricept) 10 mg HS PO Last administered on 06/21/18at 20:23; Start 06/21/18 at 21:00 Haloperidol (Haldol) 2 mg PRN Q6HRS PRN PO ANXIETY / AGITATION; Start 06/21/18 at 16:45 Active Scripts Active Reported Furosemide 20 Mg Tablet 20 Mg PO DAILYAC Levofloxacin 750 Mg Tablet 750 Mg PO Q48HRS Haloperidol (Haloperidol Lactate) 5 Mg/1 Ml Ampul 5 Mg IM PRN Q4HRS PRN Haloperidol 2 Mg Tablet 2 Mg PO TID PRN Zoloft (Sertraline Hcl) 25 Mg Tablet 25 Mg PO DAILY Zoloft (Sertraline Hcl) 100 Mg Tablet 100 Mg PO DAILY Pravastatin Sodium 40 Mg Tablet 40 Mg PO HS Meloxicam 7.5 Mg Tablet 7.5 Mg PO DAILYWBKFT Melatonin 3 Mg Tablet 3 Mg PO HS PRN Levetiracetam 500 Mg Tablet 500 Mg PO BID Folic Acid 1 Mg Tablet 1 Mg PO DAILY Ferrous Sulfate 324 Mg Tablet.dr 324 Mg PO Q48HRS Donepezil Hcl 5 Mg Tablet 5 Mg PO HS Vitamin B-12 (Cyanocobalamin (Vitamin B-12)) 1,000 Mcg Tablet 1,000 Mcg PO DAILY Clotrimazole 15 Gm Cream..g. 1 Hailee TP BID Amlodipine Besylate 5 Mg Tablet 5 Mg PO DAILY Albuterol Sulfate Neb Soln (Albuterol Sulfate) 2.5 Mg/3 Ml Vial.neb 3 Ml NEB PRN Q6HRS PRN Acetaminophen 500 Mg Tablet 1,000 Mg PO TID PRN I have reviewed the current psychotropics carefully including drug interactions. Risk benefit ratio favors no change other than as noted in my dictated progress note. Diagnosis: Problems: (1) Anxiety disorder (2) Dementia in Alzheimer's disease with delusions (3) Dementia in Alzheimer's disease with depression (4) Dementia, vascular, with delusions (5) Dementia, vascular, with depression (6) Impulse control disorder ANTWAN MUÑOZ MD Jun 21, 2018 23:12
--- NOTE | 2018-06-22 00:34 | NUR ---
Behavior Intervention Response and Plan: BIRP Note: Behavior: Assumed Care of patient, patient located in Day Room at shift change. Patient exhibited the following behavior Disorganized, Irritable, Sarcastic. Brief assessment on rounds of vital signs, medication needs, lab studies, and pain. Treatment plan problems 1 and 2. Intervention: Patient assessed and the following interventions initiated safety checks 15 Minute Checks Cognitive Assessment , Head to toe Assessment , Medications. Response: After interactions and interventions patient responded in the following manner, Calm , Compliant ,Cooperative. Continue to assess behaviors and condition will continue to monitor throughout the shift as needed. Patient educated on ADL's, and hand hygiene. 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 Continue to assess patient for changes in above assessment. Monitor for medication needs, pain, and safety concerns. Hourly rounding performed to ensure safe environment.
[2018-06-22 06:08] VITALS: BP 148/79
[2018-06-22 06:38] LABS: BASO # 0.1 x10^3/uL (0.0-0.2); BASO % 1 % (0-3); EOS # 0.2 x10^3/uL (0.0-0.7); EOS % 4 % (0-3); HEMATOCRIT 38.6 % (36.0-47.0); HEMOGLOBIN 12.7 g/dL (12.0-15.5); LYMPH % 21 % (24-48); MEAN CORPUSCULAR HEMOGLOBIN 28 pg (25-35); MEAN CORPUSCULAR HGB CONC 33 g/dL (31-37); MEAN CORPUSCULAR VOLUME 86 fL (79-100); MONO # 0.7 x10^3/uL (0.0-1.1); MONO % 13 % (0-9); NEUT # 3.1 x10^3uL (1.8-7.7); NEUT % 61 % (31-73); PLATELET COUNT 264 x10^3/uL (140-400); RED CELL DISTRIBUTION WIDTH 15.1 % (11.5-14.5); WHITE BLOOD COUNT 5.1 x10^3/uL (4.0-11.0)
[2018-06-22 06:59] LABS: ALBUMIN 3.2 g/dL (3.4-5.0); ALBUMIN/GLOBULIN RATIO 0.9 (1.0-1.7); CALCIUM 8.4 mg/dL (8.5-10.1); CREATININE 0.8 mg/dL (0.6-1.0); GFR 67.8; POTASSIUM 3.7 mmol/L (3.5-5.1); TOTAL BILIRUBIN 0.3 mg/dL (0.2-1.0); TOTAL PROTEIN 6.7 g/dL (6.4-8.2)
[2018-06-22] MEDS: HALOPERIDOL 2 MG TABLET PO SCH (07:37)
[2018-06-22] MEDS: amLODIPine BESYLATE 5 MG TABLET PO SCH (07:37)
[2018-06-22] MEDS: levETIRAcetam 500 MG TABLET PO SCH ×2 (07:37→19:43)
[2018-06-22] MEDS: SERTRALINE 100 MG TABLET. PO SCH (07:38)
[2018-06-22] MEDS: SERTRALINE 25 MG TABLET. PO SCH (07:38)
[2018-06-22] MEDS: FUROSEMIDE 20 MG TABLET PO SCH (07:38)
[2018-06-22] MEDS: LACTOBACILLUS RHAMNOSUS GG 1 CAPSULE. PO SCH ×2 (07:38→19:43)
[2018-06-22] MEDS: FOLIC ACID 1 MG TABLET PO SCH (07:38)
[2018-06-22] MEDS: MELOXICAM 7.5 MG TABLET PO SCH (07:38)
[2018-06-22] MEDS: CYANOCOBALAMIN (VITAMIN B-12) 1,000 MCG TABLET. PO SCH (07:39)
[2018-06-22] MEDS: CLOTRIMAZOLE 1% TOPICAL CREAM 30GM TUBE. TP SCH ×2 (07:40→19:44)
--- NOTE | 2018-06-22 10:35 | NUR ---
Behavior Intervention Response and Plan: BIRP Note: Behavior: Assumed Care of patient, patient located in Dining Room at shift change. Patient exhibited the following behavior Disorganized, Irritable, Compliant. Brief assessment on rounds of vital signs, medication needs, lab studies, and pain. Treatment plan problems . Intervention: Patient assessed and the following interventions initiated safety checks 15 Minute Checks Cognitive Assessment , Head to toe Assessment , Medications. Response: After interactions and interventions patient responded in the following manner, Disorganized , Wandering ,Compliant. Continue to assess behaviors and condition will continue to monitor throughout the shift as needed. Patient educated on ADL's, and hand hygiene. 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 Continue to assess patient for changes in above assessment. Monitor for medication needs, pain, and safety concerns. Hourly rounding performed to ensure safe environment.
[2018-06-22 15:58] VITALS: BP 142/83
[2018-06-22] MEDS: DONEPEZIL HCL 10 MG TABLET PO SCH (19:43)
[2018-06-22] MEDS: PRAVASTATIN 20 MG TABLET. PO SCH (19:44)
--- NOTE | 2018-06-22 19:57 | NUR ---
pt up adl. exit seekin at times. anxious and knocking on NS door at shift change saying she wanted out.
[2018-06-22] MEDS: HALOPERIDOL 2 MG TABLET PO PRN (20:46)
--- NOTE | 2018-06-22 20:50 | NUR ---
Pt became increasingly more irritable and agitated after group this evening. Pt resistive and combative with re-direction. Pt was hitting, kicking, and spitting at staff. Soft mitts were placed on bilateral hands and mesh oliveira placed over head to prevent pt from injuring herself &/or others. Pt was then placed in the [facility] for de-escalation. Pt remained agitated and aggressive. PRN Haldol administered as ordered via oral syringe.
--- NOTE | 2018-06-22 23:15 | PDOC ---
Exam Note: Dinesh Note: Please also refer to the separate dictated note~for this date of service dictated separately.~Patient seen individually. Discussed the patient with Nursing staff reviewed the chart.~Reviewed interim history and current functioning. Reviewed vital signs,~Labs/ Radiology~and current medications noted below. Continue current treatment with the changes noted in the dictated addendum note Assessment: Vital Signs: Vital Signs Date Time Temp Pulse Resp B/P (MAP) Pulse Ox O2 Delivery O2 Flow Rate FiO2 06/22/18 15:58 98.7 85 20 142/83 (102) 93 Room Air I&O Intake and Output 06/22/18 07:00 Intake Total 600 ml Balance 600 ml Intake Oral 600 ml # Voids 4 # Bowel Movements 1 Labs: Laboratory Tests Test 06/22/18 06:23 White Blood Count 5.1 x10^3/uL (4.0-11.0) Red Blood Count 4.50 x10^6/uL (3.50-5.40) Hemoglobin 12.7 g/dL (12.0-15.5) Hematocrit 38.6 % (36.0-47.0) Mean Corpuscular Volume 86 fL (79-100) Mean Corpuscular Hemoglobin 28 pg (25-35) Mean Corpuscular Hemoglobin Concent 33 g/dL (31-37) Red Cell Distribution Width 15.1 % (11.5-14.5) H Platelet Count 264 x10^3/uL (140-400) Neutrophils (%) (Auto) 61 % (31-73) Lymphocytes (%) (Auto) 21 % (24-48) L Monocytes (%) (Auto) 13 % (0-9) H Eosinophils (%) (Auto) 4 % (0-3) H Basophils (%) (Auto) 1 % (0-3) Neutrophils # (Auto) 3.1 x10^3uL (1.8-7.7) Lymphocytes # (Auto) 1.0 x10^3/uL (1.0-4.8) Monocytes # (Auto) 0.7 x10^3/uL (0.0-1.1) Eosinophils # (Auto) 0.2 x10^3/uL (0.0-0.7) Basophils # (Auto) 0.1 x10^3/uL (0.0-0.2) Sodium Level 143 mmol/L (136-145) Potassium Level 3.7 mmol/L (3.5-5.1) Chloride Level 105 mmol/L (98-107) Carbon Dioxide Level 31 mmol/L (21-32) Anion Gap 7 (6-14) Blood Urea Nitrogen 26 mg/dL (7-20) H Creatinine 0.8 mg/dL (0.6-1.0) Estimated GFR (Cockcroft-Gault) 67.8 BUN/Creatinine Ratio 33 (6-20) H Glucose Level 93 mg/dL (70-99) Calcium Level 8.4 mg/dL (8.5-10.1) L Total Bilirubin 0.3 mg/dL (0.2-1.0) Aspartate Amino Transferase (AST) 29 U/L (15-37) Alanine Aminotransferase (ALT) 25 U/L (14-59) Alkaline Phosphatase 54 U/L (46-116) Total Protein 6.7 g/dL (6.4-8.2) Albumin 3.2 g/dL (3.4-5.0) L Albumin/Globulin Ratio 0.9 (1.0-1.7) L Current Medications: Meds: Current Medications Acetaminophen (Tylenol) 650 mg PRN Q6HRS PRN PO PAIN / TEMP; Start 06/15/18 at 14:30; Status Cancel Multi-Ingredient Ointment (Analgesic [place]) 1 hailee PRN QID PRN TP MUSCLE PAIN; Start 06/15/18 at 14:30 Al Hydroxide/Mg Hydroxide (Mylanta Plus Xs) 15 ml PRN AFTMEALHC PRN PO DYSPEPSIA; Start 06/15/18 at 14:30 Magnesium Hydroxide (Milk Of Magnesia) 2,400 mg PRN QHS PRN PO CONSTIPATION; Start 06/15/18 at 14:30 Albuterol Sulfate (Ventolin) 2.5 mg PRN Q6HRS PRN NEB SHORTNESS OF BREATH; Start 06/15/18 at 17:30 Cyanocobalamin (Vitamin B-12) 1,000 mcg DAILY PO Last administered on at 07:39; Start 06/16/18 at 09:00 Furosemide (Lasix) 20 mg DAILYAC PO Last administered on 06/22/18at 07:38; Start 06/16/18 at 07:30 Acetaminophen (Tylenol) 1,000 mg PRN TID PRN PO PAIN / TEMP Last administered on 06/19/18 05:45; Start 06/15/18 at 17:45 Amlodipine Besylate (Norvasc) 5 mg DAILY PO Last administered on 06/22/18 07: 37; Start 06/16/18 at 09:00 Clotrimazole (Lotrimin) 1 hailee BID TP Last administered on 06/22/18 19:44; Start 06/15/18 at 21:00 Ferrous Sulfate (Feosol) 325 mg Q48H PO Last administered on 06/21/18 07:47; Start 06/17/18 at 08:00 Folic Acid (Folic Acid) 1 mg DAILY PO Last administered on 06/22/18 07:38; Start 06/16/18 at 09:00 Levetiracetam (Keppra) 500 mg BID PO Last administered on 06/22/18 19:43; Start 06/15/18 at 21:00 Levofloxacin (Levaquin) 750 mg Q48H PO Last administered on 06/18/18 06:32; Start 06/16/18 at 06:00; Stop 06/19/18 at 15:54; Status DC Melatonin 3 mg PRN QHS PRN PO INSOMNIA; Start 06/15/18 at 17:45 Meloxicam (Mobic) 7.5 mg DAILYWBKFT PO Last administered on 06/22/18 07:38; Start 06/16/18 at 08:00 Pravastatin Sodium (Pravachol) 40 mg QHS PO Last administered on 06/22/18 19: 44; Start 06/15/18 at 21:00 Sertraline HCl (Zoloft) 100 mg DAILY PO Last administered on 06/22/18 07:38; Start 06/16/18 at 09:00 Donepezil HCl (Aricept) 5 mg HS PO Last administered on 06/20/18 19:39; Start 06/15/18 at 21:00; Stop 06/21/18 at 20:23; Status DC Haloperidol (Haldol) 2 mg PRN TID PRN PO ANXIETY / AGITATION Last administered on 06/17/18at 15:43; Start 06/15/18 at 18:00; Stop 06/17/18 at 16:31; Status DC Sertraline HCl (Zoloft) 25 mg DAILY PO Last administered on 06/22/18at 07:38; Start 06/16/18 at 09:00 Lactobacillus Rhamnosus (Culturelle) 1 cap BID PO Last administered on at 19:43; Start 06/16/18 at 09:00 Olanzapine (ZyPREXA ZYDIS) 2.5 mg PRN Q2HR PRN PO PSYCHOSIS Last administered on 06/20/18at 11:16; Start 06/16/18 at 17:30; Stop 06/21/18 at 16:57; Status DC Haloperidol Lactate (Haldol) 2 mg DAILY IM Last administered on 06/18/18at 15: 32; Start 06/18/18 at 15:15; Stop 06/18/18 at 16:43; Status DC Haloperidol (Haldol) 2 mg DAILY PO Last administered on 06/22/18at 07:37; Start 06/19/18 at 09:00 Vitamin D (Vitamin D3) 50,000 unit WEEKLY PO Last administered on 06/19/18at 19 :51; Start 06/19/18 at 21:00 Donepezil HCl (Aricept) 10 mg HS PO Last administered on 06/22/18at 19:43; Start 06/21/18 at 21:00 Haloperidol (Haldol) 2 mg PRN Q6HRS PRN PO ANXIETY / AGITATION Last administered on 06/22/18at 20:46; Start 06/21/18 at 16:45 Active Scripts Active Reported Furosemide 20 Mg Tablet 20 Mg PO DAILYAC Levofloxacin 750 Mg Tablet 750 Mg PO Q48HRS Haloperidol (Haloperidol Lactate) 5 Mg/1 Ml Ampul 5 Mg IM PRN Q4HRS PRN Haloperidol 2 Mg Tablet 2 Mg PO TID PRN Zoloft (Sertraline Hcl) 25 Mg Tablet 25 Mg PO DAILY Zoloft (Sertraline Hcl) 100 Mg Tablet 100 Mg PO DAILY Pravastatin Sodium 40 Mg Tablet 40 Mg PO HS Meloxicam 7.5 Mg Tablet 7.5 Mg PO DAILYWBKFT Melatonin 3 Mg Tablet 3 Mg PO HS PRN Levetiracetam 500 Mg Tablet 500 Mg PO BID Folic Acid 1 Mg Tablet 1 Mg PO DAILY Ferrous Sulfate 324 Mg Tablet.dr 324 Mg PO Q48HRS Donepezil Hcl 5 Mg Tablet 5 Mg PO HS Vitamin B-12 (Cyanocobalamin (Vitamin B-12)) 1,000 Mcg Tablet 1,000 Mcg PO DAILY Clotrimazole 15 Gm Cream..g. 1 Hailee TP BID Amlodipine Besylate 5 Mg Tablet 5 Mg PO DAILY Albuterol Sulfate Neb Soln (Albuterol Sulfate) 2.5 Mg/3 Ml Vial.neb 3 Ml NEB PRN Q6HRS PRN Acetaminophen 500 Mg Tablet 1,000 Mg PO TID PRN I have reviewed the current psychotropics carefully including drug interactions. Risk benefit ratio favors no change other than as noted in my dictated progress note. Diagnosis: Problems: (1) Anxiety disorder (2) Dementia in Alzheimer's disease with delusions (3) Dementia in Alzheimer's disease with depression (4) Dementia, vascular, with delusions (5) Dementia, vascular, with depression (6) Impulse control disorder ANTWAN MUÑOZ MD Jun 22, 2018 23:15
--- NOTE | 2018-06-23 01:32 | NUR ---
Behavior Intervention Response and Plan: BIRP Note: Behavior: Assumed Care of patient, patient located in Day Room at shift change. Patient exhibited the following behavior Irritable, Disorganized, Resistive. Brief assessment on rounds of vital signs, medication needs, lab studies, and pain. Treatment plan problems 1 and 2. Intervention: Patient assessed and the following interventions initiated safety checks 15 Minute Checks Cognitive Assessment , Head to toe Assessment , Medications. Response: After interactions and interventions patient responded in the following manner, Calm , Compliant ,Resistive. Continue to assess behaviors and condition will continue to monitor throughout the shift as needed. Patient educated on ADL's, and hand hygiene. Plan: Continue to monitor Master Treatment Plan for patient's progress toward short term goals of Decreased Agitation, Decreased Aggression, underwriting consultant goals to return to previous living setting vs placement. Continue to assess patient for changes in above assessment. Monitor for medication needs, pain, and safety concerns. Hourly rounding performed to ensure safe environment.
[2018-06-23 06:14] VITALS: BP 155/79
[2018-06-23] MEDS: FOLIC ACID 1 MG TABLET PO SCH (07:52)
[2018-06-23] MEDS: FUROSEMIDE 20 MG TABLET PO SCH (07:52)
[2018-06-23] MEDS: levETIRAcetam 500 MG TABLET PO SCH ×2 (07:52→19:44)
[2018-06-23] MEDS: SERTRALINE 25 MG TABLET. PO SCH (07:52)
[2018-06-23] MEDS: amLODIPine BESYLATE 5 MG TABLET PO SCH (07:52)
[2018-06-23] MEDS: SERTRALINE 100 MG TABLET. PO SCH (07:52)
[2018-06-23] MEDS: LACTOBACILLUS RHAMNOSUS GG 1 CAPSULE. PO SCH ×2 (07:52→19:44)
[2018-06-23] MEDS: CLOTRIMAZOLE 1% TOPICAL CREAM 30GM TUBE. TP SCH ×2 (07:52→19:44)
[2018-06-23] MEDS: CYANOCOBALAMIN (VITAMIN B-12) 1,000 MCG TABLET. PO SCH (07:53)
[2018-06-23] MEDS: HALOPERIDOL 2 MG TABLET PO SCH (07:53)
[2018-06-23] MEDS: MELOXICAM 7.5 MG TABLET PO SCH (07:53)
[2018-06-23] MEDS: FERROUS SULFATE 325 MG TABLET. PO SCH (07:53)
--- NOTE | 2018-06-23 09:41 | NUR ---
Behavior Intervention Response and Plan: BIRP Note: Behavior: Assumed Care of patient, patient located in Dining Room at shift change. Patient exhibited the following behavior Disorganized, Irritable, Compliant. Brief assessment on rounds of vital signs, medication needs, lab studies, and pain. Treatment plan problems . Intervention: Patient assessed and the following interventions initiated safety checks 15 Minute Checks Cognitive Assessment , Head to toe Assessment , Medications. Response: After interactions and interventions patient responded in the following manner, Disorganized , Wandering ,Compliant. Continue to assess behaviors and condition will continue to monitor throughout the shift as needed. Patient educated on ADL's, and hand hygiene. Plan: Continue to monitor Master Treatment Plan for patient's progress toward short term goals of Decreased Agitation, Decreased Aggression, terminal supervisor goals to return to previous living setting vs placement. Continue to assess patient for changes in above assessment. Monitor for medication needs, pain, and safety concerns. Hourly rounding performed to ensure safe environment.
[2018-06-23] MEDS: HALOPERIDOL 2 MG TABLET PO PRN (14:07)
[2018-06-23 15:57] VITALS: BP 130/66
--- NOTE | 2018-06-23 17:06 | NUR ---
pt up adl with walker to meals. Restless and wanders in halls. exit seek in mid afternoon. wanting a ride home. Haldol given. Redirected.
[2018-06-23] MEDS: PRAVASTATIN 20 MG TABLET. PO SCH (19:44)
[2018-06-23] MEDS: DONEPEZIL HCL 10 MG TABLET PO SCH (19:44)
[2018-06-23] MEDS: ALBUTEROL SULFATE 2.5 MG/3 ML NEBU. NEB SCH (20:33)
--- NOTE | 2018-06-23 21:23 | PN ---
DATE: 06/21/2018 PSYCHIATRIC PROGRESS NOTE This is a late entry 06/21/2018 covers elements not covered in my initial note. SUBJECTIVE: I met with the patient in the evening. The patient slept 7-1/2 hours previous night. She has been somewhat irritable previous night, took her medications in the morning. Reportedly, she has lost her glasses and was somewhat more agitated about this. REVIEW OF SYSTEMS: Ambulation impaired with walker. No CV, , pulmonary, eye, ENT system symptoms on review. Reliability poor. MENTAL STATUS EXAM: Oriented to herself. Insight, judgment, recent and remote memory, attention, concentration, fund of knowledge poor, consistent with her diagnosis. At times, she gets extremely paranoid, agitated. Staff had to call me and she responds very positively to the Haldol as previously noted in my notes. LABORATORY DATA: Reviewed. IMPRESSION: Major neurocognitive disorder, Alzheimer, vascular with delusion, depression, behavioral disturbance. Rest unchanged. PLAN: Continue Haldol 2 mg daily, Zoloft 125 mg a day, Aricept increased from 5 mg a day to 10 mg a day. Maintain Keppra 500 mg b.i.d. for seizures, melatonin 3 mg at bedtime p.r.n. MAN Davide MUÑOZ MD DR: ALBARO/dee JOB#: [id number] / [id number]
--- NOTE | 2018-06-23 22:09 | NUR ---
Nursing note: Assumed care of pt in the hallway. She was wandering and seemed to be lost. She was compliant w/meds but complained about them. She is alert to self only. No c/o or s/s of pain. Pt continued to wander even after being directed to her room.
--- NOTE | 2018-06-23 23:16 | PDOC ---
Exam Note: Dinesh Note: Please also refer to the separate dictated note~for this date of service dictated separately.~Patient seen individually. Discussed the patient with Nursing staff reviewed the chart.~Reviewed interim history and current functioning. Reviewed vital signs,~Labs/ Radiology~and current medications noted below. Continue current treatment with the changes noted in the dictated addendum note Assessment: Vital Signs: Vital Signs Date Time Temp Pulse Resp B/P (MAP) Pulse Ox O2 Delivery O2 Flow Rate FiO2 06/23/18 20:35 95 Room Air 06/23/18 15:57 97.5 87 20 130/66 (87) I&O Intake and Output 06/23/18 07:00 Intake Total 720 ml Balance 720 ml Intake Oral 720 ml # Voids 1 # Bowel Movements 1 Current Medications: Meds: Current Medications Acetaminophen (Tylenol) 650 mg PRN Q6HRS PRN PO PAIN / TEMP; Start 06/15/18 at 14:30; Status Cancel Multi-Ingredient Ointment (Analgesic [place]) 1 hailee PRN QID PRN TP MUSCLE PAIN; Start 06/15/18 at 14:30 Al Hydroxide/Mg Hydroxide (Mylanta Plus Xs) 15 ml PRN AFTMEALHC PRN PO DYSPEPSIA; Start 06/15/18 at 14:30 Magnesium Hydroxide (Milk Of Magnesia) 2,400 mg PRN QHS PRN PO CONSTIPATION; Start 06/15/18 at 14:30 Albuterol Sulfate (Ventolin) 2.5 mg PRN Q6HRS PRN NEB SHORTNESS OF BREATH; Start 06/15/18 at 17:30 Cyanocobalamin (Vitamin B-12) 1,000 mcg DAILY PO Last administered on at 07:53; Start 06/16/18 at 09:00 Furosemide (Lasix) 20 mg DAILYAC PO Last administered on 06/23/18at 07:52; Start 06/16/18 at 07:30 Acetaminophen (Tylenol) 1,000 mg PRN TID PRN PO PAIN / TEMP Last administered on 06/19/18at 05:45; Start 06/15/18 at 17:45 Amlodipine Besylate (Norvasc) 5 mg DAILY PO Last administered on 06/23/18at 07: 52; Start 06/16/18 at 09:00 Clotrimazole (Lotrimin) 1 hailee BID TP Last administered on 06/23/18 19:44; Start 06/15/18 at 21:00 Ferrous Sulfate (Feosol) 325 mg Q48H PO Last administered on 06/23/18 07:53; Start 06/17/18 at 08:00 Folic Acid (Folic Acid) 1 mg DAILY PO Last administered on 06/23/18 07:52; Start 06/16/18 at 09:00 Levetiracetam (Keppra) 500 mg BID PO Last administered on 06/23/18 19:44; Start 06/15/18 at 21:00 Levofloxacin (Levaquin) 750 mg Q48H PO Last administered on 06/18/18 06:32; Start 06/16/18 at 06:00; Stop 06/19/18 at 15:54; Status DC Melatonin 3 mg PRN QHS PRN PO INSOMNIA; Start 06/15/18 at 17:45 Meloxicam (Mobic) 7.5 mg DAILYWBKFT PO Last administered on 06/23/18 07:53; Start 06/16/18 at 08:00 Pravastatin Sodium (Pravachol) 40 mg QHS PO Last administered on 06/23/18 19: 44; Start 06/15/18 at 21:00 Sertraline HCl (Zoloft) 100 mg DAILY PO Last administered on 06/23/18 07:52; Start 06/16/18 at 09:00 Donepezil HCl (Aricept) 5 mg HS PO Last administered on 06/20/18at 19:39; Start 06/15/18 at 21:00; Stop 06/21/18 at 20:23; Status DC Haloperidol (Haldol) 2 mg PRN TID PRN PO ANXIETY / AGITATION Last administered on 06/17/18at 15:43; Start 06/15/18 at 18:00; Stop 06/17/18 at 16:31; Status DC Sertraline HCl (Zoloft) 25 mg DAILY PO Last administered on 06/23/18 07:52; Start 06/16/18 at 09:00 Lactobacillus Rhamnosus (Culturelle) 1 cap BID PO Last administered on 19:44; Start 06/16/18 at 09:00 Olanzapine (ZyPREXA ZYDIS) 2.5 mg PRN Q2HR PRN PO PSYCHOSIS Last administered on 06/20/18at 11:16; Start 06/16/18 at 17:30; Stop 06/21/18 at 16:57; Status DC Haloperidol Lactate (Haldol) 2 mg DAILY IM Last administered on 06/18/18at 15: 32; Start 06/18/18 at 15:15; Stop 06/18/18 at 16:43; Status DC Haloperidol (Haldol) 2 mg DAILY PO Last administered on 06/23/18at 07:53; Start 06/19/18 at 09:00 Vitamin D (Vitamin D3) 50,000 unit WEEKLY PO Last administered on 06/19/18at 19 :51; Start 06/19/18 at 21:00 Donepezil HCl (Aricept) 10 mg HS PO Last administered on 06/23/18at 19:44; Start 06/21/18 at 21:00 Haloperidol (Haldol) 2 mg PRN Q6HRS PRN PO ANXIETY / AGITATION Last administered on 06/23/18at 14:07; Start 06/21/18 at 16:45 Albuterol Sulfate (Ventolin) 2.5 mg BID@1000,2200 NEB Last administered on 06/23at 20:33; Start 06/23/18 at 22:00 Active Scripts Active Reported Furosemide 20 Mg Tablet 20 Mg PO DAILYAC Levofloxacin 750 Mg Tablet 750 Mg PO Q48HRS Haloperidol (Haloperidol Lactate) 5 Mg/1 Ml Ampul 5 Mg IM PRN Q4HRS PRN Haloperidol 2 Mg Tablet 2 Mg PO TID PRN Zoloft (Sertraline Hcl) 25 Mg Tablet 25 Mg PO DAILY Zoloft (Sertraline Hcl) 100 Mg Tablet 100 Mg PO DAILY Pravastatin Sodium 40 Mg Tablet 40 Mg PO HS Meloxicam 7.5 Mg Tablet 7.5 Mg PO DAILYWBKFT Melatonin 3 Mg Tablet 3 Mg PO HS PRN Levetiracetam 500 Mg Tablet 500 Mg PO BID Folic Acid 1 Mg Tablet 1 Mg PO DAILY Ferrous Sulfate 324 Mg Tablet.dr 324 Mg PO Q48HRS Donepezil Hcl 5 Mg Tablet 5 Mg PO HS Vitamin B-12 (Cyanocobalamin (Vitamin B-12)) 1,000 Mcg Tablet 1,000 Mcg PO DAILY Clotrimazole 15 Gm Cream..g. 1 Hailee TP BID Amlodipine Besylate 5 Mg Tablet 5 Mg PO DAILY Albuterol Sulfate Neb Soln (Albuterol Sulfate) 2.5 Mg/3 Ml Vial.neb 3 Ml NEB PRN Q6HRS PRN Acetaminophen 500 Mg Tablet 1,000 Mg PO TID PRN I have reviewed the current psychotropics carefully including drug interactions. Risk benefit ratio favors no change other than as noted in my dictated progress note. Diagnosis: Problems: (1) Anxiety disorder (2) Dementia in Alzheimer's disease with delusions (3) Dementia in Alzheimer's disease with depression (4) Dementia, vascular, with delusions (5) Dementia, vascular, with depression (6) Impulse control disorder ANTWAN MUÑOZ MD Jun 23, 2018 23:16
--- NOTE | 2018-06-24 04:02 | NUR ---
Nursing note: Pt awoke during rounds c/o not feeling well and feeling like she might vomit. Vitals as follows: BP 174/74, HR 103, O2 90% RA, resp 20, afebrile. Pt went back to bed.
[2018-06-24 04:06] VITALS: BP 172/74
[2018-06-24 06:22] VITALS: BP 139/70
[2018-06-24] MEDS: levETIRAcetam 500 MG TABLET PO SCH ×2 (07:39→19:22)
[2018-06-24] MEDS: SERTRALINE 100 MG TABLET. PO SCH (07:39)
[2018-06-24] MEDS: CYANOCOBALAMIN (VITAMIN B-12) 1,000 MCG TABLET. PO SCH (07:39)
[2018-06-24] MEDS: SERTRALINE 25 MG TABLET. PO SCH (07:39)
[2018-06-24] MEDS: LACTOBACILLUS RHAMNOSUS GG 1 CAPSULE. PO SCH ×2 (07:40→19:22)
[2018-06-24] MEDS: FOLIC ACID 1 MG TABLET PO SCH (07:40)
[2018-06-24] MEDS: FUROSEMIDE 20 MG TABLET PO SCH (07:40)
[2018-06-24] MEDS: amLODIPine BESYLATE 5 MG TABLET PO SCH (07:41)
[2018-06-24] MEDS: MELOXICAM 7.5 MG TABLET PO SCH (07:41)
[2018-06-24] MEDS: HALOPERIDOL 2 MG TABLET PO SCH (07:41)
[2018-06-24] MEDS: CLOTRIMAZOLE 1% TOPICAL CREAM 30GM TUBE. TP SCH ×2 (07:43→19:22)
--- NOTE | 2018-06-24 11:35 | NUR ---
Pt compliant w/ meds & assess in dining room this morning. Pt required some assistance in getting dressed this morning as she seemed to get lost in the process, for example, she attempted to put on her shoes multiple times before putting on her pants and struggled to button and zip her pants. Pt sitting out in day room during morning group.
[2018-06-24] MEDS: ALBUTEROL SULFATE 2.5 MG/3 ML NEBU. NEB SCH ×2 (11:43→20:49)
[2018-06-24 15:18] VITALS: BP 115/68
[2018-06-24] MEDS: DONEPEZIL HCL 10 MG TABLET PO SCH (19:22)
[2018-06-24] MEDS: PRAVASTATIN 20 MG TABLET. PO SCH (19:22)
--- NOTE | 2018-06-24 19:49 | PN ---
DATE: 06/22/2018 PSYCHIATRIC PROGRESS NOTE This is a late entry 06/22/2018 covers elements not covered in my initial note by. SUBJECTIVE: I met with the patient in the evening. The patient slept 6-3/4 hours previous evening. She remains confused, but less psychotic, less agitated, still somewhat paranoid. REVIEW OF SYSTEMS: Ambulation impaired with walker. No CV, , pulmonary, eye, ENT system symptoms on review. MENTAL STATUS EXAM: Oriented to herself. Insight, judgment, recent and remote memory, attention, concentration, fund of knowledge poor, consistent with her diagnosis. LABORATORY DATA: Reviewed. IMPRESSION: Major neurocognitive disorder, Alzheimer, vascular with delusion, depression, behavioral disturbance; anxiety disorder, unspecified; impulse control disorder, unspecified. PLAN: Continue psychotropics from initial note, Haldol 2 mg daily, Zoloft 125 mg a day, Keppra for seizures, Aricept 10 mg a day, melatonin p.r.n. insomnia. ANTWAN MUÑOZ MD DR: ALBARO/dee JOB#: [id number] / [id number]
--- NOTE | 2018-06-24 21:51 | NUR ---
Nursing note: Assumed care of pt in her room. She was confused and wandering in her room. Pt was compliant w/meds and assessment. She is alert to self. Pt was pleasant and no s/s or c/o pain, no agitation at this time.
--- NOTE | 2018-06-24 23:16 | PDOC ---
Exam Note: Dinesh Note: Please also refer to the separate dictated note~for this date of service dictated separately.~Patient seen individually. Discussed the patient with Nursing staff reviewed the chart.~Reviewed interim history and current functioning. Reviewed vital signs,~Labs/ Radiology~and current medications noted below. Continue current treatment with the changes noted in the dictated addendum note Assessment: Vital Signs: Vital Signs Date Time Temp Pulse Resp B/P (MAP) Pulse Ox O2 Delivery O2 Flow Rate FiO2 06/24/18 15:18 98.2 77 16 115/68 (84) 96 Room Air I&O Intake and Output 06/24/18 07:00 Intake Total 960 ml Balance 960 ml Intake Oral 960 ml # Voids 1 # Bowel Movements 1 Current Medications: Meds: Current Medications Acetaminophen (Tylenol) 650 mg PRN Q6HRS PRN PO PAIN / TEMP; Start 06/15/18 at 14:30; Status Cancel Multi-Ingredient Ointment (Analgesic [place]) 1 hailee PRN QID PRN TP MUSCLE PAIN; Start 06/15/18 at 14:30 Al Hydroxide/Mg Hydroxide (Mylanta Plus Xs) 15 ml PRN AFTMEALHC PRN PO DYSPEPSIA; Start 06/15/18 at 14:30 Magnesium Hydroxide (Milk Of Magnesia) 2,400 mg PRN QHS PRN PO CONSTIPATION; Start 06/15/18 at 14:30 Albuterol Sulfate (Ventolin) 2.5 mg PRN Q6HRS PRN NEB SHORTNESS OF BREATH; Start 06/15/18 at 17:30 Cyanocobalamin (Vitamin B-12) 1,000 mcg DAILY PO Last administered on at 07:39; Start 06/16/18 at 09:00 Furosemide (Lasix) 20 mg DAILYAC PO Last administered on 06/24/18at 07:40; Start 06/16/18 at 07:30 Acetaminophen (Tylenol) 1,000 mg PRN TID PRN PO PAIN / TEMP Last administered on 06/19/18at 05:45; Start 06/15/18 at 17:45 Amlodipine Besylate (Norvasc) 5 mg DAILY PO Last administered on 06/24/18at 07: 41; Start 06/16/18 at 09:00 Clotrimazole (Lotrimin) 1 hailee BID TP Last administered on 06/24/18 19:22; Start 06/15/18 at 21:00 Ferrous Sulfate (Feosol) 325 mg Q48H PO Last administered on 06/23/18 07:53; Start 06/17/18 at 08:00 Folic Acid (Folic Acid) 1 mg DAILY PO Last administered on 06/24/18 07:40; Start 06/16/18 at 09:00 Levetiracetam (Keppra) 500 mg BID PO Last administered on 06/24/18 19:22; Start 06/15/18 at 21:00 Levofloxacin (Levaquin) 750 mg Q48H PO Last administered on 06/18/18 06:32; Start 06/16/18 at 06:00; Stop 06/19/18 at 15:54; Status DC Melatonin 3 mg PRN QHS PRN PO INSOMNIA; Start 06/15/18 at 17:45 Meloxicam (Mobic) 7.5 mg DAILYWBKFT PO Last administered on 06/24/18 07:41; Start 06/16/18 at 08:00 Pravastatin Sodium (Pravachol) 40 mg QHS PO Last administered on 06/24/18 19: 22; Start 06/15/18 at 21:00 Sertraline HCl (Zoloft) 100 mg DAILY PO Last administered on 06/24/18 07:39; Start 06/16/18 at 09:00 Donepezil HCl (Aricept) 5 mg HS PO Last administered on 06/20/18at 19:39; Start 06/15/18 at 21:00; Stop 06/21/18 at 20:23; Status DC Haloperidol (Haldol) 2 mg PRN TID PRN PO ANXIETY / AGITATION Last administered on 06/17/18at 15:43; Start 06/15/18 at 18:00; Stop 06/17/18 at 16:31; Status DC Sertraline HCl (Zoloft) 25 mg DAILY PO Last administered on 06/24/18 07:39; Start 06/16/18 at 09:00 Lactobacillus Rhamnosus (Culturelle) 1 cap BID PO Last administered on 19:22; Start 06/16/18 at 09:00 Olanzapine (ZyPREXA ZYDIS) 2.5 mg PRN Q2HR PRN PO PSYCHOSIS Last administered on 06/20/18at 11:16; Start 06/16/18 at 17:30; Stop 06/21/18 at 16:57; Status DC Haloperidol Lactate (Haldol) 2 mg DAILY IM Last administered on 06/18/18at 15: 32; Start 06/18/18 at 15:15; Stop 06/18/18 at 16:43; Status DC Haloperidol (Haldol) 2 mg DAILY PO Last administered on 06/24/18at 07:41; Start 06/19/18 at 09:00 Vitamin D (Vitamin D3) 50,000 unit WEEKLY PO Last administered on 06/19/18at 19 :51; Start 06/19/18 at 21:00 Donepezil HCl (Aricept) 10 mg HS PO Last administered on 06/24/18at 19:22; Start 06/21/18 at 21:00 Haloperidol (Haldol) 2 mg PRN Q6HRS PRN PO ANXIETY / AGITATION Last administered on 06/23/18at 14:07; Start 06/21/18 at 16:45 Albuterol Sulfate (Ventolin) 2.5 mg BID@1000,2200 NEB Last administered on 06/24at 11:43; Start 06/23/18 at 22:00 Active Scripts Active Reported Furosemide 20 Mg Tablet 20 Mg PO DAILYAC Levofloxacin 750 Mg Tablet 750 Mg PO Q48HRS Haloperidol (Haloperidol Lactate) 5 Mg/1 Ml Ampul 5 Mg IM PRN Q4HRS PRN Haloperidol 2 Mg Tablet 2 Mg PO TID PRN Zoloft (Sertraline Hcl) 25 Mg Tablet 25 Mg PO DAILY Zoloft (Sertraline Hcl) 100 Mg Tablet 100 Mg PO DAILY Pravastatin Sodium 40 Mg Tablet 40 Mg PO HS Meloxicam 7.5 Mg Tablet 7.5 Mg PO DAILYWBKFT Melatonin 3 Mg Tablet 3 Mg PO HS PRN Levetiracetam 500 Mg Tablet 500 Mg PO BID Folic Acid 1 Mg Tablet 1 Mg PO DAILY Ferrous Sulfate 324 Mg Tablet.dr 324 Mg PO Q48HRS Donepezil Hcl 5 Mg Tablet 5 Mg PO HS Vitamin B-12 (Cyanocobalamin (Vitamin B-12)) 1,000 Mcg Tablet 1,000 Mcg PO DAILY Clotrimazole 15 Gm Cream..g. 1 Hailee TP BID Amlodipine Besylate 5 Mg Tablet 5 Mg PO DAILY Albuterol Sulfate Neb Soln (Albuterol Sulfate) 2.5 Mg/3 Ml Vial.neb 3 Ml NEB PRN Q6HRS PRN Acetaminophen 500 Mg Tablet 1,000 Mg PO TID PRN I have reviewed the current psychotropics carefully including drug interactions. Risk benefit ratio favors no change other than as noted in my dictated progress note. Diagnosis: Problems: (1) Anxiety disorder (2) Dementia in Alzheimer's disease with delusions (3) Dementia in Alzheimer's disease with depression (4) Dementia, vascular, with delusions (5) Dementia, vascular, with depression (6) Impulse control disorder ANTWAN MUÑOZ MD Jun 24, 2018 23:15
--- NOTE | 2018-06-25 01:05 | PN ---
DATE: 06/23/2018 PSYCHIATRIC PROGRESS NOTE This late entry 06/23/2018 covers elements not covered in my initial note. SUBJECTIVE: I met with the patient in the evening. The patient slept 7 hours previous night. Previous night, she was hitting, spitting, had to have a face mask and mitts placed on her, had to be in the quiet area. Haldol was received p.r.n. She is exit-seeking in the afternoon of 06/23/2018, again received Haldol p.r.n., becomes quite psychotic, confused. REVIEW OF SYSTEMS: Ambulation impaired with walker. No CV, , pulmonary, eye, or ENT system symptoms on review. Reliability poor. MENTAL STATUS EXAM: Oriented to herself. Insight, judgment, recent and remote memory, attention, concentration, fund of knowledge poor, consistent with her diagnosis mentioned in my initial note. IMPRESSION: Major neurocognitive disorder, Alzheimer, vascular with delusion, depression, behavioral disturbance. Rest unchanged. PLAN: Continue current psychotropics, may need to increase scheduled Haldol or add Depakote as a mood stabilizer. MAN Davide MUÑOZ MD DR: ALBARO/dee JOB#: [id number] / [id number]
[2018-06-25 06:33] VITALS: BP 124/69
[2018-06-25] MEDS: CLOTRIMAZOLE 1% TOPICAL CREAM 30GM TUBE. TP SCH ×2 (09:00→19:22)
[2018-06-25] MEDS: FUROSEMIDE 20 MG TABLET PO SCH (09:25)
[2018-06-25] MEDS: MELOXICAM 7.5 MG TABLET PO SCH (09:26)
[2018-06-25] MEDS: FOLIC ACID 1 MG TABLET PO SCH (09:27)
[2018-06-25] MEDS: LACTOBACILLUS RHAMNOSUS GG 1 CAPSULE. PO SCH ×2 (09:27→19:19)
[2018-06-25] MEDS: HALOPERIDOL 2 MG TABLET PO SCH (09:34)
[2018-06-25] MEDS: SERTRALINE 25 MG TABLET. PO SCH (09:35)
[2018-06-25] MEDS: CYANOCOBALAMIN (VITAMIN B-12) 1,000 MCG TABLET. PO SCH (09:35)
[2018-06-25] MEDS: amLODIPine BESYLATE 5 MG TABLET PO SCH (09:35)
[2018-06-25] MEDS: levETIRAcetam 500 MG TABLET PO SCH ×2 (09:35→19:22)
[2018-06-25] MEDS: SERTRALINE 100 MG TABLET. PO SCH (09:36)
[2018-06-25] MEDS: FERROUS SULFATE 325 MG TABLET. PO SCH (09:37)
--- NOTE | 2018-06-25 09:51 | NUR ---
Rukhsana from [facility] were out this morning to meet and evaluate Wanda per request of Wanda's family. Provided them with health care information and medication list. Awaiting outcome.
[2018-06-25] MEDS: ALBUTEROL SULFATE 2.5 MG/3 ML NEBU. NEB SCH ×2 (10:00→20:35)
--- NOTE | 2018-06-25 12:47 | NUR ---
Assumed care of pt @ approx 0700. Pt oriented to self only. Pt pleasantly confused, but compliant w/meds taken whole w/water. No signs of hallucinations, delusions, or paranoia noted so far this shift. No inappropriate behaviors. Pt is currently wearing clothes provided by the facility, as her clothes need to be laundered, and her family has requested that we not do this here. They will take her personal clothes home to wash and bring back. Pt has been out in the Day Room much of the day so far, and is currently sitting up in the Dining Room, eating lunch. No needs voiced @ this time. Will continue to monitor and assist pt in working towards her treatment & discharge goals.
--- NOTE | 2018-06-25 15:01 | PN ---
DATE: 06/24/2018 This is a late entry for date of service 06/24/2018 and covers elements not covered in my initial note. SUBJECTIVE: I met with the patient in the evening. The patient was up at 4:00 a.m., complaining of nausea and was somewhat tachycardic. Nursing staff attributed it to her breathing treatment and I will defer to Dr. Barahona for this. She has had some cough, slept 6-1/2 hours previous night. Other than above, REVIEW OF SYSTEMS: Ambulation impaired with walker. No CV, , ENT system symptoms on review. Reliability poor. MENTAL STATUS EXAM: Oriented to herself. Insight, judgment, recent and remote memory, attention, concentration, fund of knowledge poor, consistent with her diagnosis as mentioned in my initial note. IMPRESSION: Major neurocognitive disorder, Alzheimer, vascular with delusion, depression, behavioral disturbance. Rest unchanged. PLAN: Continue psychotropics from initial note, Haldol 2 mg a day, Zoloft 125 mg a day, Keppra 500 b.i.d. for seizures, Aricept 10 mg a day, Haldol p.r.n., melatonin p.r.n., may need to increase scheduled Haldol if psychotic symptoms resurface. ANTWAN MUÑOZ MD DR: ALBARO/dee JOB#: [id number] / [id number]
--- NOTE | 2018-06-25 16:00 | NUR ---
LOAN received call from pt dtr who wanted to see if LOAN would be able to contact [facility] about a potential placement. They are planning to also tour [facility] in [place]. LOAN informed pt dtr that last time she checked [facility] had a waiting list; however, LOAN will call and let pt dtr know.
[2018-06-25 16:15] VITALS: BP 121/69
[2018-06-25] MEDS: HALOPERIDOL 2 MG TABLET PO PRN (16:43)
--- NOTE | 2018-06-25 16:47 | NUR ---
Pt became agitated in the Day Room, and started being rude to the other pts, telling them to get off the couch because it's hers, calling people names, etc. She was escorted to the Secluded Hallway, and attempted to kick and strike staff. PRN Haldol administered. She began hitting the doors with her walker, which we let her keep to prevent her from falling if she didn't sit in the chair in the hallway. She began to spit on the door windows, and started banging her walker on the doors. This RN paged Dr. العراقي, as we just spoke about whether to increase her Haldol or not. Per Dr. العراقي, new orders received to increase her Haldol from 2 mg daily to 2 mg at 0900 and 1500.
[2018-06-25] MEDS: DONEPEZIL HCL 10 MG TABLET PO SCH (19:19)
[2018-06-25] MEDS: PRAVASTATIN 20 MG TABLET. PO SCH (19:20)
--- NOTE | 2018-06-25 21:30 | NUR ---
Nursing note: Assumed care of pt in the day room. She was wandering, confused, but compliant. No c/o pain. No agitation at this time.
[2018-06-26 06:04] VITALS: BP 158/79
[2018-06-26] MEDS: FUROSEMIDE 20 MG TABLET PO SCH (08:49)
[2018-06-26] MEDS: MELOXICAM 7.5 MG TABLET PO SCH (08:50)
[2018-06-26] MEDS: LACTOBACILLUS RHAMNOSUS GG 1 CAPSULE. PO SCH ×2 (08:51→21:05)
[2018-06-26] MEDS: FOLIC ACID 1 MG TABLET PO SCH (08:51)
[2018-06-26] MEDS: amLODIPine BESYLATE 5 MG TABLET PO SCH (08:52)
[2018-06-26] MEDS: CYANOCOBALAMIN (VITAMIN B-12) 1,000 MCG TABLET. PO SCH (08:52)
[2018-06-26] MEDS: levETIRAcetam 500 MG TABLET PO SCH ×2 (08:52→21:05)
[2018-06-26] MEDS: CHOLECALCIFEROL (VITAMIN D3) 50,000 UNIT CAPSULE PO SCH (08:53)
[2018-06-26] MEDS: SERTRALINE 25 MG TABLET. PO SCH (08:54)
[2018-06-26] MEDS: CLOTRIMAZOLE 1% TOPICAL CREAM 30GM TUBE. TP SCH ×2 (08:54→21:00)
[2018-06-26] MEDS: SERTRALINE 100 MG TABLET. PO SCH (08:54)
[2018-06-26] MEDS: HALOPERIDOL 2 MG TABLET PO SCH ×2 (08:57→14:29)
[2018-06-26] MEDS: ALBUTEROL SULFATE 2.5 MG/3 ML NEBU. NEB SCH ×2 (12:11→20:49)
--- NOTE | 2018-06-26 12:58 | NUR ---
Assumed care of pt @ 0700. Pt was sitting up in the Dining Room for breakfast at the time of our initial encounter. Pt is oriented to self only. No signs of hallucinations, delusions, or paranoia noted. Pt was compliant w/AM meds. Pt has been ambulatory in the hallways with the aid of her walker. No inappropriate behaviors so far this shift. Pt just finished eating lunch in the Dining Room and is walking towards the Day Room @ this time. No needs voiced. Will continue to monitor and assist pt in working towards her treatment and discharge goals.
[2018-06-26 16:43] VITALS: BP 128/63
[2018-06-26] MEDS: HALOPERIDOL 2 MG TABLET PO PRN (17:50)
--- NOTE | 2018-06-26 20:08 | PN ---
DATE: 06/25/2018 PSYCHIATRIC PROGRESS NOTE This late entry 06/25/2018 covers elements not covered in my initial note. SUBJECTIVE: I met with the patient in the evening. The patient slept 6-1/2 hours previous night, compliant with medications, confused, oriented just to herself during the day, less aggressive, less paranoid. No CV, , pulmonary, eye, ENT system symptoms on review. Gait unsteady with walker. Reliability poor. MENTAL STATUS EXAM: Oriented to herself. Insight, judgment, recent and remote memory, attention, concentration, fund of knowledge poor, consistent with her diagnosis mentioned in my initial note. IMPRESSION: Major neurocognitive disorder, Alzheimer, vascular with delusion, depression, behavioral disturbance. Rest unchanged. PLAN: No change from initial note. MAN Davide MUÑOZ MD DR: ALBARO/dee JOB#: [id number] / [id number]
[2018-06-26] MEDS: DONEPEZIL HCL 10 MG TABLET PO SCH (21:05)
[2018-06-26] MEDS: PRAVASTATIN 20 MG TABLET. PO SCH (21:05)
--- NOTE | 2018-06-26 22:50 | PDOC ---
Exam Note: Dinesh Note: Late entry for DOS 06/25/2018. Please also refer to the separate dictated note~ for this date of service dictated separately.~Patient seen individually. Discussed the patient with Nursing staff reviewed the chart.~Reviewed interim history and current functioning. Reviewed vital signs,~Labs/ Radiology~and current medications noted below. Continue current treatment with the changes noted in the dictated addendum note Assessment: Vital Signs: VS - Last 72 Hours, by Label Date Time Temp Pulse Resp B/P (MAP) Pulse Ox O2 Delivery O2 Flow Rate FiO2 06/26/18 20:35 96 Room Air 06/26/18 16:43 98.3 57 20 128/63 (84) 97 06/26/18 12:15 97 Room Air 06/26/18 08:52 91 158/79 06/26/18 06:04 98.3 91 18 158/79 (105) 94 06/25/18 20:22 95 Room Air 06/25/18 16:15 97.4 87 16 121/69 (86) 94 Room Air 06/25/18 11:19 96 Room Air 06/25/18 09:35 82 124/69 06/25/18 06:33 97.1 82 16 124/69 (87) 91 Room Air 06/24/18 20:49 94 Room Air 06/24/18 15:18 98.2 77 16 115/68 (84) 96 Room Air 06/24/18 11:45 94 Room Air 06/24/18 07:41 85 139/70 06/24/18 06:22 97.1 85 21 139/70 (93) 90 06/24/18 04:06 98.5 103 20 172/74 (106) 90 Room Air Vital Signs Date Time Temp Pulse Resp B/P (MAP) Pulse Ox O2 Delivery O2 Flow Rate FiO2 06/26/18 20:35 96 Room Air 06/26/18 16:43 98.3 57 20 128/63 (84) I&O Intake and Output 06/26/18 07:00 Intake Total 600 ml Balance 600 ml Intake Oral 600 ml # Bowel Movements 2 Current Medications: Meds: Current Medications Acetaminophen (Tylenol) 650 mg PRN Q6HRS PRN PO PAIN / TEMP; Start 06/15/18 at 14:30; Status Cancel Multi-Ingredient Ointment (Analgesic Allen) 1 hailee PRN QID PRN TP MUSCLE PAIN; Start 06/15/18 at 14:30 Al Hydroxide/Mg Hydroxide (Mylanta Plus Xs) 15 ml PRN AFTMEALHC PRN PO DYSPEPSIA; Start 06/15/18 at 14:30 Magnesium Hydroxide (Milk Of Magnesia) 2,400 mg PRN QHS PRN PO CONSTIPATION; Start 06/15/18 at 14:30 Albuterol Sulfate (Ventolin) 2.5 mg PRN Q6HRS PRN NEB SHORTNESS OF BREATH; Start 06/15/18 at 17:30 Cyanocobalamin (Vitamin B-12) 1,000 mcg DAILY PO Last administered on at 08:52; Start 06/16/18 at 09:00 Furosemide (Lasix) 20 mg DAILYAC PO Last administered on 06/26/18at 08:49; Start 06/16/18 at 07:30 Acetaminophen (Tylenol) 1,000 mg PRN TID PRN PO PAIN / TEMP Last administered on 06/19/18at 05:45; Start 06/15/18 at 17:45 Amlodipine Besylate (Norvasc) 5 mg DAILY PO Last administered on 06/26/18at 08: 52; Start 06/16/18 at 09:00 Clotrimazole (Lotrimin) 1 hailee BID TP Last administered on 06/26/18at 21:00; Start 06/15/18 at 21:00 Ferrous Sulfate (Feosol) 325 mg Q48H PO Last administered on 06/25/18at 09:37; Start 06/17/18 at 08:00 Folic Acid (Folic Acid) 1 mg DAILY PO Last administered on 06/26/18at 08:51; Start 06/16/18 at 09:00 Levetiracetam (Keppra) 500 mg BID PO Last administered on 06/26/18at 21:05; Start 06/15/18 at 21:00 Levofloxacin (Levaquin) 750 mg Q48H PO Last administered on 06/18/18at 06:32; Start 06/16/18 at 06:00; Stop 06/19/18 at 15:54; Status DC Melatonin 3 mg PRN QHS PRN PO INSOMNIA; Start 06/15/18 at 17:45 Meloxicam (Mobic) 7.5 mg DAILYWBKFT PO Last administered on 06/26/18 08:50; Start 06/16/18 at 08:00 Pravastatin Sodium (Pravachol) 40 mg QHS PO Last administered on 06/26/18 21: 05; Start 06/15/18 at 21:00 Sertraline HCl (Zoloft) 100 mg DAILY PO Last administered on 06/26/18 08:54; Start 06/16/18 at 09:00 Donepezil HCl (Aricept) 5 mg HS PO Last administered on 06/20/18at 19:39; Start 06/15/18 at 21:00; Stop 06/21/18 at 20:23; Status DC Haloperidol (Haldol) 2 mg PRN TID PRN PO ANXIETY / AGITATION Last administered on 06/17/18 15:43; Start 06/15/18 at 18:00; Stop 06/17/18 at 16:31; Status DC Sertraline HCl (Zoloft) 25 mg DAILY PO Last administered on 06/26/18 08:54; Start 06/16/18 at 09:00 Lactobacillus Rhamnosus (Culturelle) 1 cap BID PO Last administered on 21:05; Start 06/16/18 at 09:00 Olanzapine (ZyPREXA ZYDIS) 2.5 mg PRN Q2HR PRN PO PSYCHOSIS Last administered on 06/20/18 11:16; Start 06/16/18 at 17:30; Stop 06/21/18 at 16:57; Status DC Haloperidol Lactate (Haldol) 2 mg DAILY IM Last administered on 06/18/18at 15: 32; Start 06/18/18 at 15:15; Stop 06/18/18 at 16:43; Status DC Haloperidol (Haldol) 2 mg DAILY PO Last administered on 06/25/18 09:34; Start 06/19/18 at 09:00; Stop 06/25/18 at 16:56; Status DC Vitamin D (Vitamin D3) 50,000 unit WEEKLY PO Last administered on 06/26/18 08: 53; Start 06/19/18 at 21:00 Donepezil HCl (Aricept) 10 mg HS PO Last administered on 06/26/18 21:05; Start 06/21/18 at 21:00 Haloperidol (Haldol) 2 mg PRN Q6HRS PRN PO ANXIETY / AGITATION Last administered on 06/26/18at 17:50; Start 06/21/18 at 16:45 Albuterol Sulfate (Ventolin) 2.5 mg BID@1000,2200 NEB Last administered on 06/26at 20:49; Start 06/23/18 at 22:00 Haloperidol (Haldol) 2 mg 0900,1500 PO Last administered on 06/26/18at 14:29; Start 06/26/18 at 09:00 Active Scripts Active Reported Furosemide 20 Mg Tablet 20 Mg PO DAILYAC Levofloxacin 750 Mg Tablet 750 Mg PO Q48HRS Haloperidol (Haloperidol Lactate) 5 Mg/1 Ml Ampul 5 Mg IM PRN Q4HRS PRN Haloperidol 2 Mg Tablet 2 Mg PO TID PRN Zoloft (Sertraline Hcl) 25 Mg Tablet 25 Mg PO DAILY Zoloft (Sertraline Hcl) 100 Mg Tablet 100 Mg PO DAILY Pravastatin Sodium 40 Mg Tablet 40 Mg PO HS Meloxicam 7.5 Mg Tablet 7.5 Mg PO DAILYWBKFT Melatonin 3 Mg Tablet 3 Mg PO HS PRN Levetiracetam 500 Mg Tablet 500 Mg PO BID Folic Acid 1 Mg Tablet 1 Mg PO DAILY Ferrous Sulfate 324 Mg Tablet.dr 324 Mg PO Q48HRS Donepezil Hcl 5 Mg Tablet 5 Mg PO HS Vitamin B-12 (Cyanocobalamin (Vitamin B-12)) 1,000 Mcg Tablet 1,000 Mcg PO DAILY Clotrimazole 15 Gm Cream..g. 1 Hailee TP BID Amlodipine Besylate 5 Mg Tablet 5 Mg PO DAILY Albuterol Sulfate Neb Soln (Albuterol Sulfate) 2.5 Mg/3 Ml Vial.neb 3 Ml NEB PRN Q6HRS PRN Acetaminophen 500 Mg Tablet 1,000 Mg PO TID PRN I have reviewed the current psychotropics carefully including drug interactions. Risk benefit ratio favors no change other than as noted in my dictated progress note. Diagnosis: Problems: (1) Anxiety disorder (2) Dementia in Alzheimer's disease with delusions (3) Dementia in Alzheimer's disease with depression (4) Dementia, vascular, with delusions (5) Dementia, vascular, with depression (6) Impulse control disorder ANTWAN MUÑOZ MD Jun 26, 2018 22:50
--- NOTE | 2018-06-26 23:19 | PDOC ---
Exam Note: Dinesh Note: Please also refer to the separate dictated note~for this date of service dictated separately.~Patient seen individually. Discussed the patient with Nursing staff reviewed the chart.~Reviewed interim history and current functioning. Reviewed vital signs,~Labs/ Radiology~and current medications noted below. Continue current treatment with the changes noted in the dictated addendum note Assessment: Vital Signs: Vital Signs Date Time Temp Pulse Resp B/P (MAP) Pulse Ox O2 Delivery O2 Flow Rate FiO2 06/26/18 20:35 96 Room Air 06/26/18 16:43 98.3 57 20 128/63 (84) I&O Intake and Output 06/26/18 07:00 Intake Total 600 ml Balance 600 ml Intake Oral 600 ml # Bowel Movements 2 Current Medications: Meds: Current Medications Acetaminophen (Tylenol) 650 mg PRN Q6HRS PRN PO PAIN / TEMP; Start 06/15/18 at 14:30; Status Cancel Multi-Ingredient Ointment (Analgesic [place]) 1 hailee PRN QID PRN TP MUSCLE PAIN; Start 06/15/18 at 14:30 Al Hydroxide/Mg Hydroxide (Mylanta Plus Xs) 15 ml PRN AFTMEALHC PRN PO DYSPEPSIA; Start 06/15/18 at 14:30 Magnesium Hydroxide (Milk Of Magnesia) 2,400 mg PRN QHS PRN PO CONSTIPATION; Start 06/15/18 at 14:30 Albuterol Sulfate (Ventolin) 2.5 mg PRN Q6HRS PRN NEB SHORTNESS OF BREATH; Start 06/15/18 at 17:30 Cyanocobalamin (Vitamin B-12) 1,000 mcg DAILY PO Last administered on at 08:52; Start 06/16/18 at 09:00 Furosemide (Lasix) 20 mg DAILYAC PO Last administered on 06/26/18at 08:49; Start 06/16/18 at 07:30 Acetaminophen (Tylenol) 1,000 mg PRN TID PRN PO PAIN / TEMP Last administered on 06/19/18at 05:45; Start 06/15/18 at 17:45 Amlodipine Besylate (Norvasc) 5 mg DAILY PO Last administered on 06/26/18at 08: 52; Start 06/16/18 at 09:00 Clotrimazole (Lotrimin) 1 hailee BID TP Last administered on 06/26/18 21:00; Start 06/15/18 at 21:00 Ferrous Sulfate (Feosol) 325 mg Q48H PO Last administered on 06/25/18at 09:37; Start 06/17/18 at 08:00 Folic Acid (Folic Acid) 1 mg DAILY PO Last administered on 06/26/18at 08:51; Start 06/16/18 at 09:00 Levetiracetam (Keppra) 500 mg BID PO Last administered on 06/26/18 21:05; Start 06/15/18 at 21:00 Levofloxacin (Levaquin) 750 mg Q48H PO Last administered on 06/18/18 06:32; Start 06/16/18 at 06:00; Stop 06/19/18 at 15:54; Status DC Melatonin 3 mg PRN QHS PRN PO INSOMNIA; Start 06/15/18 at 17:45 Meloxicam (Mobic) 7.5 mg DAILYWBKFT PO Last administered on 06/26/18at 08:50; Start 06/16/18 at 08:00 Pravastatin Sodium (Pravachol) 40 mg QHS PO Last administered on 06/26/18 21: 05; Start 06/15/18 at 21:00 Sertraline HCl (Zoloft) 100 mg DAILY PO Last administered on 06/26/18at 08:54; Start 06/16/18 at 09:00 Donepezil HCl (Aricept) 5 mg HS PO Last administered on 06/20/18at 19:39; Start 06/15/18 at 21:00; Stop 06/21/18 at 20:23; Status DC Haloperidol (Haldol) 2 mg PRN TID PRN PO ANXIETY / AGITATION Last administered on 06/17/18at 15:43; Start 06/15/18 at 18:00; Stop 06/17/18 at 16:31; Status DC Sertraline HCl (Zoloft) 25 mg DAILY PO Last administered on 06/26/18at 08:54; Start 06/16/18 at 09:00 Lactobacillus Rhamnosus (Culturelle) 1 cap BID PO Last administered on at 21:05; Start 06/16/18 at 09:00 Olanzapine (ZyPREXA ZYDIS) 2.5 mg PRN Q2HR PRN PO PSYCHOSIS Last administered on 06/20/18at 11:16; Start 06/16/18 at 17:30; Stop 06/21/18 at 16:57; Status DC Haloperidol Lactate (Haldol) 2 mg DAILY IM Last administered on 06/18/18at 15: 32; Start 06/18/18 at 15:15; Stop 06/18/18 at 16:43; Status DC Haloperidol (Haldol) 2 mg DAILY PO Last administered on 06/25/18at 09:34; Start 06/19/18 at 09:00; Stop 06/25/18 at 16:56; Status DC Vitamin D (Vitamin D3) 50,000 unit WEEKLY PO Last administered on 06/26/18at 08: 53; Start 06/19/18 at 21:00 Donepezil HCl (Aricept) 10 mg HS PO Last administered on 06/26/18at 21:05; Start 06/21/18 at 21:00 Haloperidol (Haldol) 2 mg PRN Q6HRS PRN PO ANXIETY / AGITATION Last administered on 06/26/18at 17:50; Start 06/21/18 at 16:45 Albuterol Sulfate (Ventolin) 2.5 mg BID@1000,2200 NEB Last administered on 06/26at 20:49; Start 06/23/18 at 22:00 Haloperidol (Haldol) 2 mg 0900,1500 PO Last administered on 06/26/18at 14:29; Start 06/26/18 at 09:00 Active Scripts Active Reported Furosemide 20 Mg Tablet 20 Mg PO DAILYAC Levofloxacin 750 Mg Tablet 750 Mg PO Q48HRS Haloperidol (Haloperidol Lactate) 5 Mg/1 Ml Ampul 5 Mg IM PRN Q4HRS PRN Haloperidol 2 Mg Tablet 2 Mg PO TID PRN Zoloft (Sertraline Hcl) 25 Mg Tablet 25 Mg PO DAILY Zoloft (Sertraline Hcl) 100 Mg Tablet 100 Mg PO DAILY Pravastatin Sodium 40 Mg Tablet 40 Mg PO HS Meloxicam 7.5 Mg Tablet 7.5 Mg PO DAILYWBKFT Melatonin 3 Mg Tablet 3 Mg PO HS PRN Levetiracetam 500 Mg Tablet 500 Mg PO BID Folic Acid 1 Mg Tablet 1 Mg PO DAILY Ferrous Sulfate 324 Mg Tablet.dr 324 Mg PO Q48HRS Donepezil Hcl 5 Mg Tablet 5 Mg PO HS Vitamin B-12 (Cyanocobalamin (Vitamin B-12)) 1,000 Mcg Tablet 1,000 Mcg PO DAILY Clotrimazole 15 Gm Cream..g. 1 Hailee TP BID Amlodipine Besylate 5 Mg Tablet 5 Mg PO DAILY Albuterol Sulfate Neb Soln (Albuterol Sulfate) 2.5 Mg/3 Ml Vial.neb 3 Ml NEB PRN Q6HRS PRN Acetaminophen 500 Mg Tablet 1,000 Mg PO TID PRN I have reviewed the current psychotropics carefully including drug interactions. Risk benefit ratio favors no change other than as noted in my dictated progress note. Diagnosis: Problems: (1) Anxiety disorder (2) Dementia in Alzheimer's disease with delusions (3) Dementia in Alzheimer's disease with depression (4) Dementia, vascular, with delusions (5) Dementia, vascular, with depression (6) Impulse control disorder ANTWAN MUÑOZ MD Jun 26, 2018 23:19
--- NOTE | 2018-06-26 23:23 | NUR ---
Pt has been wandering unit all evening. No signs of agitation or aggression. Compliant with medications in one bite of applesauce.
[2018-06-27 05:59] VITALS: BP 145/71
[2018-06-27 06:57] LABS: BASO # 0.1 x10^3/uL (0.0-0.2); BASO % 1 % (0-3); EOS # 0.2 x10^3/uL (0.0-0.7); EOS % 2 % (0-3); HEMATOCRIT 38.9 % (36.0-47.0); HEMOGLOBIN 12.6 g/dL (12.0-15.5); LYMPH # 0.9 x10^3/uL (1.0-4.8); LYMPH % 11 % (24-48); MEAN CORPUSCULAR HEMOGLOBIN 28 pg (25-35); MEAN CORPUSCULAR HGB CONC 32 g/dL (31-37); MEAN CORPUSCULAR VOLUME 86 fL (79-100); MONO # 0.7 x10^3/uL (0.0-1.1); MONO % 8 % (0-9); NEUT # 6.4 x10^3uL (1.8-7.7); NEUT % 78 % (31-73); PLATELET COUNT 263 x10^3/uL (140-400); RED BLOOD COUNT 4.54 x10^6/uL (3.50-5.40); RED CELL DISTRIBUTION WIDTH 15.4 % (11.5-14.5); WHITE BLOOD COUNT 8.2 x10^3/uL (4.0-11.0)
[2018-06-27 07:21] LABS: ALBUMIN 3.3 g/dL (3.4-5.0); ALBUMIN/GLOBULIN RATIO 0.9 (1.0-1.7); CALCIUM 8.6 mg/dL (8.5-10.1); CREATININE 0.8 mg/dL (0.6-1.0); GFR 67.8; POTASSIUM 3.7 mmol/L (3.5-5.1); TOTAL BILIRUBIN 0.5 mg/dL (0.2-1.0)
--- NOTE | 2018-06-27 08:52 | NUR ---
WEEKLY ACTIVITY THERAPY NOTE Date of Admission: 06/15/2018 Date of AT Assessment: 06/19/2018 Goal aimed: To increase motivation and recreation education. Initial Goal: Pt will participate in at least five groups per week. Weekly progress towards goal: achieved Group participation level: moderate Behaviors observed: Pt. comes to some groups and sleeps through others; Pt. seems to prefer exercise groups; Pt.can be confused and combative in the afternoons; Pt. has been clinging to and following another Pt. around, confusing him with someone she knows Plan: no change to goal
[2018-06-27] MEDS: SERTRALINE 25 MG TABLET. PO SCH (09:00)
[2018-06-27 09:21] LABS: % BANDS 0 % (0-9); % BASOS 0 % (0-3); % EOS 2 % (0-5); % LYMPHS 8 % (24-48); % MONOS 6 % (0-10); % SEGS 83 % (35-66)
[2018-06-27 09:22] LABS: % ATYL 1 % (0-0); HYPOCHROMIA PRESENT; PLT ESTIMATE ADEQUATE (ADEQUATE); STOMATOCYTES PRESENT
[2018-06-27] MEDS: FOLIC ACID 1 MG TABLET PO SCH (10:00)
[2018-06-27] MEDS: FUROSEMIDE 20 MG TABLET PO SCH (10:00)
[2018-06-27] MEDS: amLODIPine BESYLATE 5 MG TABLET PO SCH (10:00)
[2018-06-27] MEDS: MELOXICAM 7.5 MG TABLET PO SCH (10:00)
[2018-06-27] MEDS: FERROUS SULFATE 325 MG TABLET. PO SCH (10:00)
[2018-06-27] MEDS: SERTRALINE 100 MG TABLET. PO SCH (10:00)
[2018-06-27] MEDS: levETIRAcetam 500 MG TABLET PO SCH ×2 (10:00→19:32)
[2018-06-27] MEDS: LACTOBACILLUS RHAMNOSUS GG 1 CAPSULE. PO SCH ×2 (10:00→19:32)
[2018-06-27] MEDS: ALBUTEROL SULFATE 2.5 MG/3 ML NEBU. NEB SCH ×2 (10:15→20:44)
--- NOTE | 2018-06-27 11:00 | NUR ---
WEEKLY NOTE: Tx team attempted to contact pt dtr to participate in team; however, it went straight to voicemail. Pt continues to wander the unit and is confused. Pt has little group interactions and consistently exhibits exit seeking behaviors (e.g. door checking). SW will follow up with pt dtr to discuss discharge plans as well as get ahold of the two potential facilities: [facility].
[2018-06-27] MEDS: HALOPERIDOL 2 MG TABLET PO SCH ×2 (11:21→16:03)
[2018-06-27] MEDS: CLOTRIMAZOLE 1% TOPICAL CREAM 30GM TUBE. TP SCH ×2 (11:40→19:31)
[2018-06-27] MEDS: CYANOCOBALAMIN (VITAMIN B-12) 1,000 MCG TABLET. PO SCH (11:41)
[2018-06-27 16:03] VITALS: BP 130/69
--- NOTE | 2018-06-27 17:56 | NUR ---
Pt calm and med compliant; however, pt appears more tired and less energetic. Pt continues to have a cough. Dr. Redding made aware during his rounds.
[2018-06-27] MEDS: DONEPEZIL HCL 10 MG TABLET PO SCH (19:31)
[2018-06-27] MEDS: PRAVASTATIN 20 MG TABLET. PO SCH (19:32)
[2018-06-27] MEDS: BENZONATATE 100 MG CAPSULE. PO SCH (21:00)
--- NOTE | 2018-06-28 02:24 | NUR ---
Behavior Intervention Response and Plan: [facility]IR[facility] Note: Behavior: Assumed Care of patient, patient located in Day Room at shift change. Patient exhibited the following behavior Drowsy, Sleeping, Calm. Brief assessment on rounds of vital signs, medication needs, lab studies, and pain. Treatment plan problems 1 and 2. Intervention: Patient assessed and the following interventions initiated safety checks 15 Minute Checks Cognitive Assessment , Head to toe Assessment , Medications. Response: After interactions and interventions patient responded in the following manner, Calm , Compliant ,Cooperative. Continue to assess behaviors and condition will continue to monitor throughout the shift as needed. Patient educated on ADL's, and hand hygiene. 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 Continue to assess patient for changes in above assessment. Monitor for medication needs, pain, and safety concerns. Hourly rounding performed to ensure safe environment.
--- NOTE | 2018-06-28 02:25 | NUR ---
Behavior Intervention Response and Plan: [facility] Note: Behavior: Assumed Care of patient, patient located in Day Room at shift change. Patient exhibited the following behavior Restless, Anxious, Compulsive. Brief assessment on rounds of vital signs, medication needs, lab studies, and pain. Treatment plan problems 1 and 2. Intervention: Patient assessed and the following interventions initiated safety checks 15 Minute Checks Cognitive Assessment , Head to toe Assessment , Medications. Response: After interactions and interventions patient responded in the following manner, Anxious , Compliant ,Restless. Continue to assess behaviors and condition will continue to monitor throughout the shift as needed. Patient educated on ADL's, and hand hygiene. 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 Continue to assess patient for changes in above assessment. Monitor for medication needs, pain, and safety concerns. Hourly rounding performed to ensure safe environment. Addendum: 06/28/18 at 0228 by ALEXYS IRVING RN This note charted on the wrong patient.
[2018-06-28 06:21] VITALS: BP 128/67
[2018-06-28] MEDS: CLOTRIMAZOLE 1% TOPICAL CREAM 30GM TUBE. TP SCH ×2 (09:00→21:00)
[2018-06-28] MEDS: CYANOCOBALAMIN (VITAMIN B-12) 1,000 MCG TABLET. PO SCH (09:04)
[2018-06-28] MEDS: amLODIPine BESYLATE 5 MG TABLET PO SCH (09:04)
[2018-06-28] MEDS: SERTRALINE 100 MG TABLET. PO SCH (09:05)
[2018-06-28] MEDS: HALOPERIDOL 2 MG TABLET PO SCH ×2 (09:05→15:00)
[2018-06-28] MEDS: MELOXICAM 7.5 MG TABLET PO SCH (09:05)
[2018-06-28] MEDS: levETIRAcetam 500 MG TABLET PO SCH ×3 (09:05→23:57)
[2018-06-28] MEDS: BENZONATATE 100 MG CAPSULE. PO SCH ×4 (09:06→23:57)
[2018-06-28] MEDS: SERTRALINE 25 MG TABLET. PO SCH (09:06)
[2018-06-28] MEDS: FUROSEMIDE 20 MG TABLET PO SCH (09:06)
[2018-06-28] MEDS: LACTOBACILLUS RHAMNOSUS GG 1 CAPSULE. PO SCH ×2 (09:06→21:00)
[2018-06-28] MEDS: FOLIC ACID 1 MG TABLET PO SCH (09:06)
--- NOTE | 2018-06-28 10:35 | NUR ---
Behavior Intervention Response and Plan: BIRP Note: Behavior: Assumed Care of patient, patient located in Day Room at shift change. Patient exhibited the following behavior Disorganized, Calm, compliant. Brief assessment on rounds of vital signs, medication needs, lab studies, and pain. Treatment plan problems 1 and 2. Intervention: Patient assessed and the following interventions initiated safety checks 15 Minute Checks Cognitive Assessment , Head to toe Assessment , Medications. Response: After interactions and interventions patient responded in the following manner, Calm , Compliant , Disorganized. Continue to assess behaviors and condition will continue to monitor throughout the shift as needed. Patient educated on ADL's, and hand hygiene. 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 Continue to assess patient for changes in above assessment. Monitor for medication needs, pain, and safety concerns. Hourly rounding performed to ensure safe environment.
[2018-06-28] MEDS: ALBUTEROL SULFATE 2.5 MG/3 ML NEBU. NEB SCH ×2 (11:12→19:51)
--- NOTE | 2018-06-28 14:59 | RAD ---
CHEST AP ONLY dated 06/28/2018 2:00 PM. Comparison: None. Clinical Indication: COUGH AND CONGESTION. Findings: Single upright portable exam performed. Heart and mediastinal contours within normal limits. There are calcified bilateral hilar lymph nodes. Lungs volumes are low, limiting evaluation. There is consolidation in the lower lobes with blunting of the costophrenic sulci. No pneumothorax. Impression: 1. Bibasilar airspace disease, atelectasis versus pneumonia. 2. Small to moderate size bilateral pleural effusions. Electronically signed by: Jonathan Salazar MD (06/28/2018 2:56 PM) [id number]
[2018-06-28 16:03] VITALS: BP 120/73
--- NOTE | 2018-06-28 17:05 | RAD ---
CT of the chest without contrast, 06/28/2018: HISTORY: Bilateral pleural effusions, cough Noncontrast scans were obtained as requested. There are large bilateral pleural effusions. There is moderate underlying atelectasis in both lower lobes. There is minimal streaky atelectasis in the inferior lingula and right middle lobe. The aerated portions of both lungs demonstrate only minimal scattered groundglass opacities, probably representing mild edema. There is moderate calcific plaquing of the thoracic aorta without evidence of aneurysm. Moderate coronary artery calcifications are present. There is a small pericardial effusion. There are calcified subcarinal and right hilar lymph nodes due to old granulomatous disease. No mediastinal adenopathy is evident. There are moderate scattered degenerative changes in the spine. There are superior endplate deformities at T12 and L1 which are probably old. IMPRESSION: 1. Large bilateral pleural effusions with moderate underlying atelectasis in the lower lobes. 2. Minimal scattered groundglass opacities in the lungs suggesting mild edema. 3. Small pericardial effusion. 4. Calcific plaquing of the aorta and coronary arteries. PQRS Compliance Statement: One or more of the following individualized dose reduction techniques were utilized for this examination: 1. Automated exposure control 2. Adjustment of the mA and/or kV according to patient size 3. Use of iterative reconstruction technique Electronically signed by: Braxton Marte MD (06/28/2018 5:02 PM) [facility]
[2018-06-28 18:00] LABS: BGAS PH 7.43 (7.35-7.45)
--- NOTE | 2018-06-28 19:34 | PDOC ---
Progress Note. Subjective: [facility] staff alerted me that patient was having worsening nonproductive cough and some perceived KUMARI. No CP/fever/chills/n/v. Review of her VS she's been afebrile, non-tachypneic, stable O2sats on room air. Labs yesterday unremarkable, ABG today same. AP Chest revealed bibasilar airspace disease vs pneumonia with small to moderate size b/l effusions. CT Chest w/o IMPRESSION: 1. Large bilateral pleural effusions with moderate underlying atelectasis in the lower lobes. 2. Minimal scattered groundglass opacities in the lungs suggesting mild edema. 3. Small pericardial effusion. 4. Calcific plaquing of the aorta and coronary arteries. At the family's request as relayed by [facility] RN I contacted patient's commissions manager Dr Philip [phone]. He was very familiar with the patient and had already spoken with her family earlier this evening. He reported that he had previously performed thoracentesis three times past 18 months each time nondiagnostic and no cause for effusions/recurrances identified. He requested that if possible therapeutic tap be undertaken for symptom control not to interrupt her treatment in [facility] unit. I discussed these issues with patient's [facility] RN in detail. Objective: Vital Signs: Vital Signs Date Time Temp Pulse Resp B/P (MAP) Pulse Ox O2 Delivery O2 Flow Rate FiO2 06/28/18 16:03 98.0 91 19 120/73 (89) 94 Room Air I & O: Intake and Output 06/28/18 07:00 Intake Total 720 ml Balance 720 ml Intake Oral 720 ml # Voids 2 # Bowel Movements 1 Labs: Laboratory Tests Test 06/27/18 06:38 06/28/18 17:49 White Blood Count 8.2 x10^3/uL (4.0-11.0) Red Blood Count 4.54 x10^6/uL (3.50-5.40) Hemoglobin 12.6 g/dL (12.0-15.5) Hematocrit 38.9 % (36.0-47.0) Mean Corpuscular Volume 86 fL (79-100) Mean Corpuscular Hemoglobin 28 pg (25-35) Mean Corpuscular Hemoglobin Concent 32 g/dL (31-37) Red Cell Distribution Width 15.4 % (11.5-14.5) Platelet Count 263 x10^3/uL (140-400) Neutrophils (%) (Auto) 78 % (31-73) Lymphocytes (%) (Auto) 11 % (24-48) Monocytes (%) (Auto) 8 % (0-9) Eosinophils (%) (Auto) 2 % (0-3) Basophils (%) (Auto) 1 % (0-3) Neutrophils # (Auto) 6.4 x10^3uL (1.8-7.7) Lymphocytes # (Auto) 0.9 x10^3/uL (1.0-4.8) Monocytes # (Auto) 0.7 x10^3/uL (0.0-1.1) Eosinophils # (Auto) 0.2 x10^3/uL (0.0-0.7) Basophils # (Auto) 0.1 x10^3/uL (0.0-0.2) Segmented Neutrophils % 83 % (35-66) Band Neutrophils % 0 % (0-9) Lymphocytes % 8 % (24-48) Atypical Lymphocytes % (Manual) 1 % (0-0) Monocytes % 6 % (0-10) Eosinophils % 2 % (0-5) Basophils % 0 % (0-3) Platelet Estimate Adequate (ADEQUATE) Hypochromasia Present Stomatocytes Present Sodium Level 141 mmol/L (136-145) Potassium Level 3.7 mmol/L (3.5-5.1) Chloride Level 104 mmol/L (98-107) Carbon Dioxide Level 29 mmol/L (21-32) Anion Gap 8 (6-14) Blood Urea Nitrogen 21 mg/dL (7-20) Creatinine 0.8 mg/dL (0.6-1.0) Estimated GFR (Cockcroft-Gault) 67.8 BUN/Creatinine Ratio 26 (6-20) Glucose Level 97 mg/dL (70-99) Calcium Level 8.6 mg/dL (8.5-10.1) Total Bilirubin 0.5 mg/dL (0.2-1.0) Aspartate Amino Transf (AST/SGOT) 25 U/L (15-37) Alanine Aminotransferase (ALT/SGPT) 23 U/L (14-59) Alkaline Phosphatase 61 U/L (46-116) Total Protein 7.0 g/dL (6.4-8.2) Albumin 3.3 g/dL (3.4-5.0) Albumin/Globulin Ratio 0.9 (1.0-1.7) Blood Gas pH 7.43 (7.35-7.45) Blood Gas PCO2 42 mmHg (35-45) Blood Gas PO2 67 mmHg (71-100) Blood Gas HCO3 28 mmol/L (22-26) Arterial Bld O2 Saturation (Calc) 94 % (92-99) FiO2 21 % Physical Exam: Gen.: Alert, pleasant, no apparent distress Pulmonary: Decreased BS at bases b/l L>R mild rales good air movement no respiratory distress Abdomen: Soft nontender non-distended, bowel sounds present no masses Extremities: No clubbing, cyanosis or edema Neuro: Alert FITZGERALD Skin: Warm, dry Assessment: Recurrance of large bilateral pleural effusions with 3x previous nondiagnostic workups Plan: Elevate HOB prn Interventional Radiology consultation pending for therapeutic thoracentesis, will also send fluid for pathology analysis. ALEXANDRU WALTON DO Jun 28, 2018 19:34
--- NOTE | 2018-06-28 19:51 | PDOC ---
Exam Note: Dinesh Note: Late entry for date of service June 27, 2018. Please also refer to the separate dictated note~for this date of service dictated separately.~Patient seen individually. Discussed the patient with Nursing staff reviewed the chart.~ Reviewed interim history and current functioning. Reviewed vital signs,~Labs/ Radiology~and current medications noted below. Continue current treatment with the changes noted in the dictated addendum note Assessment: Vital Signs: Vital Signs Date Time Temp Pulse Resp B/P (MAP) Pulse Ox O2 Delivery O2 Flow Rate FiO2 06/28/18 16:03 98.0 91 19 120/73 (89) 94 Room Air I&O VS - Last 72 Hours, by Label Date Time Temp Pulse Resp B/P (MAP) Pulse Ox O2 Delivery O2 Flow Rate FiO2 06/28/18 16:03 98.0 91 19 120/73 (89) 94 Room Air 06/28/18 11:13 95 Room Air 06/28/18 09:04 74 128/67 06/28/18 06:21 97.4 74 16 128/67 (87) 92 Room Air 06/27/18 19:52 95 Room Air 06/27/18 16:03 98.5 76 19 130/69 (89) 96 Room Air 06/27/18 10:15 97 Room Air 06/27/18 10:00 87 145/71 06/27/18 05:59 97.0 87 20 145/71 (95) 90 06/26/18 20:35 96 Room Air 06/26/18 16:43 98.3 57 20 128/63 (84) 97 06/26/18 12:15 97 Room Air 06/26/18 08:52 91 158/79 06/26/18 06:04 98.3 91 18 158/79 (105) 94 06/25/18 20:22 95 Room Air Intake and Output 06/28/18 07:00 Intake Total 720 ml Balance 720 ml Intake Oral 720 ml # Voids 2 # Bowel Movements 1 Labs: Laboratory Tests Test 06/28/18 17:49 Blood pH 7.43 (7.35-7.45) Blood Gas PCO2 42 mmHg (35-45) Blood Gas PO2 67 mmHg (71-100) L Blood Gas HCO3 28 mmol/L (22-26) H Arterial Bld O2 Saturation (Calc) 94 % (92-99) FiO2 21 % Current Medications: Meds: Current Medications Acetaminophen (Tylenol) 650 mg PRN Q6HRS PRN PO PAIN / TEMP; Start 06/15/18 at 14:30; Status Cancel Multi-Ingredient Ointment (Analgesic [place]) 1 hailee PRN QID PRN TP MUSCLE PAIN; Start 06/15/18 at 14:30 Al Hydroxide/Mg Hydroxide (Mylanta Plus Xs) 15 ml PRN AFTMEALHC PRN PO DYSPEPSIA; Start 06/15/18 at 14:30 Magnesium Hydroxide (Milk Of Magnesia) 2,400 mg PRN QHS PRN PO CONSTIPATION; Start 06/15/18 at 14:30 Albuterol Sulfate (Ventolin) 2.5 mg PRN Q6HRS PRN NEB SHORTNESS OF BREATH; Start 06/15/18 at 17:30 Cyanocobalamin (Vitamin B-12) 1,000 mcg DAILY PO Last administered on at 09:04; Start 06/16/18 at 09:00 Furosemide (Lasix) 20 mg DAILYAC PO Last administered on 06/28/18at 09:06; Start 06/16/18 at 07:30 Acetaminophen (Tylenol) 1,000 mg PRN TID PRN PO PAIN / TEMP Last administered on 06/19/18at 05:45; Start 06/15/18 at 17:45 Amlodipine Besylate (Norvasc) 5 mg DAILY PO Last administered on 06/28/18at 09: 04; Start 06/16/18 at 09:00 Clotrimazole (Lotrimin) 1 hailee BID TP Last administered on 06/28/18at 09:00; Start 06/15/18 at 21:00 Ferrous Sulfate (Feosol) 325 mg Q48H PO Last administered on 06/27/18at 10:00; Start 06/17/18 at 08:00 Folic Acid (Folic Acid) 1 mg DAILY PO Last administered on 06/28/18 09:06; Start 06/16/18 at 09:00 Levetiracetam (Keppra) 500 mg BID PO Last administered on 06/28/18at 09:05; Start 06/15/18 at 21:00 Levofloxacin (Levaquin) 750 mg Q48H PO Last administered on 06/18/18at 06:32; Start 06/16/18 at 06:00; Stop 06/19/18 at 15:54; Status DC Melatonin 3 mg PRN QHS PRN PO INSOMNIA; Start 06/15/18 at 17:45 Meloxicam (Mobic) 7.5 mg DAILYWBKFT PO Last administered on 06/28/18at 09:05; Start 06/16/18 at 08:00 Pravastatin Sodium (Pravachol) 40 mg QHS PO Last administered on 06/27/18at 19: 32; Start 06/15/18 at 21:00 Sertraline HCl (Zoloft) 100 mg DAILY PO Last administered on 06/28/18at 09:05; Start 06/16/18 at 09:00 Donepezil HCl (Aricept) 5 mg HS PO Last administered on 06/20/18at 19:39; Start 06/15/18 at 21:00; Stop 06/21/18 at 20:23; Status DC Haloperidol (Haldol) 2 mg PRN TID PRN PO ANXIETY / AGITATION Last administered on 06/17/18at 15:43; Start 06/15/18 at 18:00; Stop 06/17/18 at 16:31; Status DC Sertraline HCl (Zoloft) 25 mg DAILY PO Last administered on 06/28/18at 09:06; Start 06/16/18 at 09:00 Lactobacillus Rhamnosus (Culturelle) 1 cap BID PO Last administered on at 09:06; Start 06/16/18 at 09:00 Olanzapine (ZyPREXA ZYDIS) 2.5 mg PRN Q2HR PRN PO PSYCHOSIS Last administered on 06/20/18at 11:16; Start 06/16/18 at 17:30; Stop 06/21/18 at 16:57; Status DC Haloperidol Lactate (Haldol) 2 mg DAILY IM Last administered on 06/18/18at 15: 32; Start 06/18/18 at 15:15; Stop 06/18/18 at 16:43; Status DC Haloperidol (Haldol) 2 mg DAILY PO Last administered on 06/25/18at 09:34; Start 06/19/18 at 09:00; Stop 06/25/18 at 16:56; Status DC Vitamin D (Vitamin D3) 50,000 unit WEEKLY PO Last administered on 06/26/18at 08: 53; Start 06/19/18 at 21:00 Donepezil HCl (Aricept) 10 mg HS PO Last administered on 06/27/18at 19:31; Start 06/21/18 at 21:00 Haloperidol (Haldol) 2 mg PRN Q6HRS PRN PO ANXIETY / AGITATION Last administered on 06/26/18at 17:50; Start 06/21/18 at 16:45 Albuterol Sulfate (Ventolin) 2.5 mg BID@1000,2200 NEB Last administered on 06/28 11:12; Start 06/23/18 at 22:00 Haloperidol (Haldol) 2 mg 0900,1500 PO Last administered on 06/28/18at 09:05; Start 06/26/18 at 09:00 Benzonatate (Tessalon Perle) 100 mg [id number] PO Last administered on 06/28/18at 14 :33; Start 06/27/18 at 21:00 Active Scripts Active Reported Furosemide 20 Mg Tablet 20 Mg PO DAILYAC Levofloxacin 750 Mg Tablet 750 Mg PO Q48HRS Haloperidol (Haloperidol Lactate) 5 Mg/1 Ml Ampul 5 Mg IM PRN Q4HRS PRN Haloperidol 2 Mg Tablet 2 Mg PO TID PRN Zoloft (Sertraline Hcl) 25 Mg Tablet 25 Mg PO DAILY Zoloft (Sertraline Hcl) 100 Mg Tablet 100 Mg PO DAILY Pravastatin Sodium 40 Mg Tablet 40 Mg PO HS Meloxicam 7.5 Mg Tablet 7.5 Mg PO DAILYWBKFT Melatonin 3 Mg Tablet 3 Mg PO HS PRN Levetiracetam 500 Mg Tablet 500 Mg PO BID Folic Acid 1 Mg Tablet 1 Mg PO DAILY Ferrous Sulfate 324 Mg Tablet.dr 324 Mg PO Q48HRS Donepezil Hcl 5 Mg Tablet 5 Mg PO HS Vitamin B-12 (Cyanocobalamin (Vitamin B-12)) 1,000 Mcg Tablet 1,000 Mcg PO DAILY Clotrimazole 15 Gm Cream..g. 1 Hailee TP BID Amlodipine Besylate 5 Mg Tablet 5 Mg PO DAILY Albuterol Sulfate Neb Soln (Albuterol Sulfate) 2.5 Mg/3 Ml Vial.neb 3 Ml NEB PRN Q6HRS PRN Acetaminophen 500 Mg Tablet 1,000 Mg PO TID PRN I have reviewed the current psychotropics carefully including drug interactions. Risk benefit ratio favors no change other than as noted in my dictated progress note. Diagnosis: Problems: (1) Anxiety disorder (2) Dementia in Alzheimer's disease with delusions (3) Dementia in Alzheimer's disease with depression (4) Dementia, vascular, with delusions (5) Dementia, vascular, with depression (6) Impulse control disorder ANTWAN MUÑOZ MD Jun 28, 2018 19:51
--- NOTE | 2018-06-28 20:09 | PN ---
DATE: 06/26/2018 PSYCHIATRIC PROGRESS NOTE This late entry 06/26/2018 covers elements not covered in my initial note. SUBJECTIVE: I met with the patient in the evening. The patient slept 8-3/4 hours previous night. She has done better during the day since the Haldol was increased to 2 mg twice a day. She was watching the television program [employer] in the evening, which is something she could not have been able to sit long enough to do. She was unable to remember what she was watching when I questioned her. REVIEW OF SYSTEMS: No CV, , pulmonary, eye, ENT system symptoms on review. Reliability poor. Gait unsteady with walker. MENTAL STATUS EXAM: Oriented to herself. Insight, judgment, recent and remote memory, attention, concentration, fund of knowledge poor, consistent with her diagnosis. IMPRESSION: Major neurocognitive disorder, Alzheimer, vascular with delusion, depression, behavioral disturbance; anxiety disorder, unspecified. Rest unchanged. PLAN: No change from initial note. ANTWAN MUÑOZ MD DR: ALBARO/dee JOB#: [id number] / [id number]
--- NOTE | 2018-06-28 20:48 | NUR ---
This nurse spoke with Dr. Redding this evening to clarify new order to consult IR for a bedside thoracentesis d/t large pleural effusions. Per Dr. Redding, procedure does not need to be done STAT and pt does not need to be transferred out to have procedure done. Dr. Redding consulted Dr. Barahona and Dr. Philip (Pul), and all are in agreement. This nurse contacted radiology to make aware of consult and procedure. Per radiology, since procedure is not STAT, it will be addressed on Sunday. Dr. Redding made aware and is fine with this but also wants pt to be monitored for worsening s/sx and to notify him of these changes in case pt needs to be transferred to [facility] for procedure.
[2018-06-28] MEDS: PRAVASTATIN 20 MG TABLET. PO SCH ×2 (21:00→23:58)
[2018-06-28] MEDS: DONEPEZIL HCL 10 MG TABLET PO SCH ×2 (21:00→23:57)
--- NOTE | 2018-06-28 22:56 | PDOC ---
Exam Note: Dinesh Note: Please also refer to the separate dictated note~for this date of service dictated separately.~Patient seen individually. Discussed the patient with Nursing staff reviewed the chart.~Reviewed interim history and current functioning. Reviewed vital signs,~Labs/ Radiology~and current medications noted below. Continue current treatment with the changes noted in the dictated addendum note Assessment: Vital Signs: Vital Signs Date Time Temp Pulse Resp B/P (MAP) Pulse Ox O2 Delivery O2 Flow Rate FiO2 06/28/18 19:54 93 Room Air 06/28/18 16:03 98.0 91 19 120/73 (89) I&O Intake and Output 06/28/18 07:00 Intake Total 720 ml Balance 720 ml Intake Oral 720 ml # Voids 2 # Bowel Movements 1 Labs: Laboratory Tests Test 06/28/18 17:49 Blood pH 7.43 (7.35-7.45) Blood Gas PCO2 42 mmHg (35-45) Blood Gas PO2 67 mmHg (71-100) L Blood Gas HCO3 28 mmol/L (22-26) H Arterial Bld O2 Saturation (Calc) 94 % (92-99) FiO2 21 % Current Medications: Meds: Current Medications Acetaminophen (Tylenol) 650 mg PRN Q6HRS PRN PO PAIN / TEMP; Start 06/15/18 at 14:30; Status Cancel Multi-Ingredient Ointment (Analgesic [place]) 1 hailee PRN QID PRN TP MUSCLE PAIN; Start 06/15/18 at 14:30 Al Hydroxide/Mg Hydroxide (Mylanta Plus Xs) 15 ml PRN AFTMEALHC PRN PO DYSPEPSIA; Start 06/15/18 at 14:30 Magnesium Hydroxide (Milk Of Magnesia) 2,400 mg PRN QHS PRN PO CONSTIPATION; Start 06/15/18 at 14:30 Albuterol Sulfate (Ventolin) 2.5 mg PRN Q6HRS PRN NEB SHORTNESS OF BREATH; Start 06/15/18 at 17:30 Cyanocobalamin (Vitamin B-12) 1,000 mcg DAILY PO Last administered on at 09:04; Start 06/16/18 at 09:00 Furosemide (Lasix) 20 mg DAILYAC PO Last administered on 06/28/18at 09:06; Start 06/16/18 at 07:30 Acetaminophen (Tylenol) 1,000 mg PRN TID PRN PO PAIN / TEMP Last administered on 06/19/18 05:45; Start 06/15/18 at 17:45 Amlodipine Besylate (Norvasc) 5 mg DAILY PO Last administered on 06/28/18at 09: 04; Start 06/16/18 at 09:00 Clotrimazole (Lotrimin) 1 hailee BID TP Last administered on 06/28/18 09:00; Start 06/15/18 at 21:00 Ferrous Sulfate (Feosol) 325 mg Q48H PO Last administered on 06/27/18 10:00; Start 06/17/18 at 08:00 Folic Acid (Folic Acid) 1 mg DAILY PO Last administered on 06/28/18 09:06; Start 06/16/18 at 09:00 Levetiracetam (Keppra) 500 mg BID PO Last administered on 06/28/18 09:05; Start 06/15/18 at 21:00 Levofloxacin (Levaquin) 750 mg Q48H PO Last administered on 06/18/18at 06:32; Start 06/16/18 at 06:00; Stop 06/19/18 at 15:54; Status DC Melatonin 3 mg PRN QHS PRN PO INSOMNIA; Start 06/15/18 at 17:45 Meloxicam (Mobic) 7.5 mg DAILYWBKFT PO Last administered on 06/28/18at 09:05; Start 06/16/18 at 08:00 Pravastatin Sodium (Pravachol) 40 mg QHS PO Last administered on 06/27/18at 19: 32; Start 06/15/18 at 21:00 Sertraline HCl (Zoloft) 100 mg DAILY PO Last administered on 06/28/18 09:05; Start 06/16/18 at 09:00 Donepezil HCl (Aricept) 5 mg HS PO Last administered on 06/20/18at 19:39; Start 06/15/18 at 21:00; Stop 06/21/18 at 20:23; Status DC Haloperidol (Haldol) 2 mg PRN TID PRN PO ANXIETY / AGITATION Last administered on 06/17/18at 15:43; Start 06/15/18 at 18:00; Stop 06/17/18 at 16:31; Status DC Sertraline HCl (Zoloft) 25 mg DAILY PO Last administered on 06/28/18 09:06; Start 06/16/18 at 09:00 Lactobacillus Rhamnosus (Culturelle) 1 cap BID PO Last administered on 09:06; Start 06/16/18 at 09:00 Olanzapine (ZyPREXA ZYDIS) 2.5 mg PRN Q2HR PRN PO PSYCHOSIS Last administered on 06/20/18 11:16; Start 06/16/18 at 17:30; Stop 06/21/18 at 16:57; Status DC Haloperidol Lactate (Haldol) 2 mg DAILY IM Last administered on 06/18/18 15: 32; Start 06/18/18 at 15:15; Stop 06/18/18 at 16:43; Status DC Haloperidol (Haldol) 2 mg DAILY PO Last administered on 06/25/18at 09:34; Start 06/19/18 at 09:00; Stop 06/25/18 at 16:56; Status DC Vitamin D (Vitamin D3) 50,000 unit WEEKLY PO Last administered on 06/26/18at 08: 53; Start 06/19/18 at 21:00 Donepezil HCl (Aricept) 10 mg HS PO Last administered on 06/27/18 19:31; Start 06/21/18 at 21:00 Haloperidol (Haldol) 2 mg PRN Q6HRS PRN PO ANXIETY / AGITATION Last administered on 06/26/18at 17:50; Start 06/21/18 at 16:45 Albuterol Sulfate (Ventolin) 2.5 mg BID@1000,2200 NEB Last administered on 06/28 19:51; Start 06/23/18 at 22:00 Haloperidol (Haldol) 2 mg 0900,1500 PO Last administered on 06/28/18 09:05; Start 06/26/18 at 09:00 Benzonatate (Tessalon Perle) 100 mg [id number] PO Last administered on 06/28/18 14 :33; Start 06/27/18 at 21:00 Active Scripts Active Reported Furosemide 20 Mg Tablet 20 Mg PO DAILYAC Levofloxacin 750 Mg Tablet 750 Mg PO Q48HRS Haloperidol (Haloperidol Lactate) 5 Mg/1 Ml Ampul 5 Mg IM PRN Q4HRS PRN Haloperidol 2 Mg Tablet 2 Mg PO TID PRN Zoloft (Sertraline Hcl) 25 Mg Tablet 25 Mg PO DAILY Zoloft (Sertraline Hcl) 100 Mg Tablet 100 Mg PO DAILY Pravastatin Sodium 40 Mg Tablet 40 Mg PO HS Meloxicam 7.5 Mg Tablet 7.5 Mg PO DAILYWBKFT Melatonin 3 Mg Tablet 3 Mg PO HS PRN Levetiracetam 500 Mg Tablet 500 Mg PO BID Folic Acid 1 Mg Tablet 1 Mg PO DAILY Ferrous Sulfate 324 Mg Tablet.dr 324 Mg PO Q48HRS Donepezil Hcl 5 Mg Tablet 5 Mg PO HS Vitamin B-12 (Cyanocobalamin (Vitamin B-12)) 1,000 Mcg Tablet 1,000 Mcg PO DAILY Clotrimazole 15 Gm Cream..g. 1 Hailee TP BID Amlodipine Besylate 5 Mg Tablet 5 Mg PO DAILY Albuterol Sulfate Neb Soln (Albuterol Sulfate) 2.5 Mg/3 Ml Vial.neb 3 Ml NEB PRN Q6HRS PRN Acetaminophen 500 Mg Tablet 1,000 Mg PO TID PRN I have reviewed the current psychotropics carefully including drug interactions. Risk benefit ratio favors no change other than as noted in my dictated progress note. Diagnosis: Problems: (1) Anxiety disorder (2) Dementia in Alzheimer's disease with delusions (3) Dementia in Alzheimer's disease with depression (4) Dementia, vascular, with delusions (5) Dementia, vascular, with depression (6) Impulse control disorder ANTWAN MUÑOZ MD Jun 28, 2018 22:56
--- NOTE | 2018-06-29 00:14 | NUR ---
Behavior Intervention Response and Plan: BIRP Note: Behavior: Assumed Care of patient, patient located in Patient Room at shift change. Patient exhibited the following behavior Irritable, Drowsy, Resistive. Brief assessment on rounds of vital signs, medication needs, lab studies, and pain. Treatment plan problems 1 and 2. Intervention: Patient assessed and the following interventions initiated safety checks 15 Minute Checks Cognitive Assessment , Head to toe Assessment , Medications. Response: After interactions and interventions patient responded in the following manner, Irritable , Compliant ,Drowsy. Continue to assess behaviors and condition will continue to monitor throughout the shift as needed. Patient educated on ADL's, and hand hygiene. 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 Continue to assess patient for changes in above assessment. Monitor for medication needs, pain, and safety concerns. Hourly rounding performed to ensure safe environment.
[2018-06-29 05:58] VITALS: BP 163/82
[2018-06-29] MEDS: SERTRALINE 25 MG TABLET. PO SCH (07:55)
[2018-06-29] MEDS: SERTRALINE 100 MG TABLET. PO SCH (07:55)
[2018-06-29] MEDS: FOLIC ACID 1 MG TABLET PO SCH (07:56)
[2018-06-29] MEDS: FUROSEMIDE 20 MG TABLET PO SCH (07:56)
[2018-06-29] MEDS: levETIRAcetam 500 MG TABLET PO SCH ×2 (07:56→20:25)
[2018-06-29] MEDS: LACTOBACILLUS RHAMNOSUS GG 1 CAPSULE. PO SCH ×2 (07:56→20:25)
[2018-06-29] MEDS: MELOXICAM 7.5 MG TABLET PO SCH (07:56)
[2018-06-29] MEDS: CYANOCOBALAMIN (VITAMIN B-12) 1,000 MCG TABLET. PO SCH (07:56)
[2018-06-29] MEDS: FERROUS SULFATE 325 MG TABLET. PO SCH (07:56)
[2018-06-29] MEDS: amLODIPine BESYLATE 5 MG TABLET PO SCH (07:56)
[2018-06-29] MEDS: BENZONATATE 100 MG CAPSULE. PO SCH ×3 (07:56→20:25)
[2018-06-29] MEDS: CLOTRIMAZOLE 1% TOPICAL CREAM 30GM TUBE. TP SCH ×2 (07:59→20:25)
[2018-06-29] MEDS ORDERED: HALOPERIDOL 1 MG TABLET PO PRN (08:30)
[2018-06-29] MEDS ORDERED: HALOPERIDOL 1 MG TABLET PO SCH (09:00)
[2018-06-29] MEDS: ALBUTEROL SULFATE 2.5 MG/3 ML NEBU. NEB SCH ×2 (10:17→20:21)
--- NOTE | 2018-06-29 11:45 | NUR ---
Behavior Intervention Response and Plan: BIRP Note: Behavior: Assumed Care of patient, patient located in Dining Room at shift change. Patient exhibited the following behavior Disorganized, Irritable, Compliant. Brief assessment on rounds of vital signs, medication needs, lab studies, and pain. Treatment plan problems . Intervention: Patient assessed and the following interventions initiated safety checks 15 Minute Checks Cognitive Assessment , Head to toe Assessment , Medications. Response: After interactions and interventions patient responded in the following manner, Disorganized , Wandering ,Compliant. Continue to assess behaviors and condition will continue to monitor throughout the shift as needed. Patient educated on ADL's, and hand hygiene. 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 Continue to assess patient for changes in above assessment. Monitor for medication needs, pain, and safety concerns. Hourly rounding performed to ensure safe environment.
--- NOTE | 2018-06-29 12:37 | PN ---
DATE: 06/27/2018 PSYCHIATRIC PROGRESS NOTE This late entry 06/27/2018 covers elements not covered in my initial note. SUBJECTIVE: Met with the patient in the evening. The patient slept 5 hours previous night. The patient was staffed at a treatment team meeting with the entire team in the morning, was seen individually in the evening. She gets agitated in the evening time with increased confusion, but little better since we have increased the Haldol to 2 mg twice a day. REVIEW OF SYSTEMS: Ambulation impaired with walker. No CV, , pulmonary, eye, ENT system symptoms on review. Reliability is poor. MENTAL STATUS EXAM: Oriented to herself. Insight, judgment, recent and remote memory, attention, concentration, fund of knowledge is poor, consistent with her diagnoses mentioned in my initial note. IMPRESSION: Major neurocognitive disorder, Alzheimer, vascular with delusion, depression, behavioral disturbance. Rest unchanged. PLAN: No change from initial note. ANTWAN MUÑOZ MD DR: ALBARO/dee JOB#: [id number] / [id number]
[2018-06-29] MEDS: HALOPERIDOL 2 MG TABLET PO SCH (14:52)
[2018-06-29 16:01] VITALS: BP_SYST 129; BP_SYST 146; BP_DIAS 74; BP_DIAS 91
--- NOTE | 2018-06-29 17:02 | NUR ---
pt up adl with walker. out to meals. compliant with meds. still has mod productive cough. pleasantly confused today.
[2018-06-29] MEDS: PRAVASTATIN 20 MG TABLET. PO SCH (20:25)
[2018-06-29] MEDS: DONEPEZIL HCL 10 MG TABLET PO SCH (20:25)
--- NOTE | 2018-06-29 22:56 | PDOC ---
Exam Note: Dinesh Note: Please also refer to the separate dictated note~for this date of service dictated separately.~Patient seen individually. Discussed the patient with Nursing staff reviewed the chart.~Reviewed interim history and current functioning. Reviewed vital signs,~Labs/ Radiology~and current medications noted below. Continue current treatment with the changes noted in the dictated addendum note Assessment: Vital Signs: Vital Signs Date Time Temp Pulse Resp B/P (MAP) Pulse Ox O2 Delivery O2 Flow Rate FiO2 06/29/18 20:21 96 Room Air 06/29/18 16:01 97.3 83 16 129/74 (92) I&O Intake and Output 06/29/18 07:00 Intake Total 380 ml Balance 380 ml Intake Oral 380 ml Current Medications: Meds: Current Medications Acetaminophen (Tylenol) 650 mg PRN Q6HRS PRN PO PAIN / TEMP; Start 06/15/18 at 14:30; Status Cancel Multi-Ingredient Ointment (Analgesic [place]) 1 hailee PRN QID PRN TP MUSCLE PAIN; Start 06/15/18 at 14:30 Al Hydroxide/Mg Hydroxide (Mylanta Plus Xs) 15 ml PRN AFTMEALHC PRN PO DYSPEPSIA; Start 06/15/18 at 14:30 Magnesium Hydroxide (Milk Of Magnesia) 2,400 mg PRN QHS PRN PO CONSTIPATION; Start 06/15/18 at 14:30 Albuterol Sulfate (Ventolin) 2.5 mg PRN Q6HRS PRN NEB SHORTNESS OF BREATH; Start 06/15/18 at 17:30 Cyanocobalamin (Vitamin B-12) 1,000 mcg DAILY PO Last administered on at 07:56; Start 06/16/18 at 09:00 Furosemide (Lasix) 20 mg DAILYAC PO Last administered on 06/29/18at 07:56; Start 06/16/18 at 07:30 Acetaminophen (Tylenol) 1,000 mg PRN TID PRN PO PAIN / TEMP Last administered on 06/19/18at 05:45; Start 06/15/18 at 17:45 Amlodipine Besylate (Norvasc) 5 mg DAILY PO Last administered on 06/29/18at 07: 56; Start 06/16/18 at 09:00 Clotrimazole (Lotrimin) 1 hailee BID TP Last administered on 06/29/18 20:25; Start 06/15/18 at 21:00 Ferrous Sulfate (Feosol) 325 mg Q48H PO Last administered on 06/29/18at 07:56; Start 06/17/18 at 08:00 Folic Acid (Folic Acid) 1 mg DAILY PO Last administered on 06/29/18at 07:56; Start 06/16/18 at 09:00 Levetiracetam (Keppra) 500 mg BID PO Last administered on 06/29/18at 20:25; Start 06/15/18 at 21:00 Levofloxacin (Levaquin) 750 mg Q48H PO Last administered on 06/18/18 06:32; Start 06/16/18 at 06:00; Stop 06/19/18 at 15:54; Status DC Melatonin 3 mg PRN QHS PRN PO INSOMNIA; Start 06/15/18 at 17:45 Meloxicam (Mobic) 7.5 mg DAILYWBKFT PO Last administered on 06/29/18at 07:56; Start 06/16/18 at 08:00 Pravastatin Sodium (Pravachol) 40 mg QHS PO Last administered on 06/29/18 20: 25; Start 06/15/18 at 21:00 Sertraline HCl (Zoloft) 100 mg DAILY PO Last administered on 06/29/18 07:55; Start 06/16/18 at 09:00 Donepezil HCl (Aricept) 5 mg HS PO Last administered on 06/20/18at 19:39; Start 06/15/18 at 21:00; Stop 06/21/18 at 20:23; Status DC Haloperidol (Haldol) 2 mg PRN TID PRN PO ANXIETY / AGITATION Last administered on 06/17/18at 15:43; Start 06/15/18 at 18:00; Stop 06/17/18 at 16:31; Status DC Sertraline HCl (Zoloft) 25 mg DAILY PO Last administered on 06/29/18 07:55; Start 06/16/18 at 09:00 Lactobacillus Rhamnosus (Culturelle) 1 cap BID PO Last administered on at 20:25; Start 06/16/18 at 09:00 Olanzapine (ZyPREXA ZYDIS) 2.5 mg PRN Q2HR PRN PO PSYCHOSIS Last administered on 06/20/18at 11:16; Start 06/16/18 at 17:30; Stop 06/21/18 at 16:57; Status DC Haloperidol Lactate (Haldol) 2 mg DAILY IM Last administered on 06/18/18at 15: 32; Start 06/18/18 at 15:15; Stop 06/18/18 at 16:43; Status DC Haloperidol (Haldol) 2 mg DAILY PO Last administered on 06/25/18at 09:34; Start 06/19/18 at 09:00; Stop 06/25/18 at 16:56; Status DC Vitamin D (Vitamin D3) 50,000 unit WEEKLY PO Last administered on 06/26/18at 08: 53; Start 06/19/18 at 21:00 Donepezil HCl (Aricept) 10 mg HS PO Last administered on 06/29/18at 20:25; Start 06/21/18 at 21:00 Haloperidol (Haldol) 2 mg PRN Q6HRS PRN PO ANXIETY / AGITATION Last administered on 06/26/18at 17:50; Start 06/21/18 at 16:45; Stop 06/29/18 at 08: 22; Status DC Albuterol Sulfate (Ventolin) 2.5 mg BID@1000,2200 NEB Last administered on 06/06at 20:21; Start 06/23/18 at 22:00 Haloperidol (Haldol) 2 mg 0900,1500 PO Last administered on 06/28/18at 09:05; Start 06/26/18 at 09:00; Stop 06/29/18 at 08:22; Status DC Benzonatate (Tessalon Perle) 100 mg [id number] PO Last administered on 06/29/18at 20:25; Start 06/27/18 at 21:00 Haloperidol (Haldol) 2 mg PRN Q6HRS PRN PO ANXIETY / AGITATION; Start at 08:30 Haloperidol (Haldol) 2 mg 0900,1500 PO Last administered on 06/29/18at 09:00; Start 06/29/18 at 09:00; Stop 06/29/18 at 13:47; Status DC Haloperidol (Haldol) 2 mg 0900,1500 PO Last administered on 06/29/18at 14:52; Start 06/29/18 at 13:47 Active Scripts Active Reported Furosemide 20 Mg Tablet 20 Mg PO DAILYAC Levofloxacin 750 Mg Tablet 750 Mg PO Q48HRS Haloperidol (Haloperidol Lactate) 5 Mg/1 Ml Ampul 5 Mg IM PRN Q4HRS PRN Haloperidol 2 Mg Tablet 2 Mg PO TID PRN Zoloft (Sertraline Hcl) 25 Mg Tablet 25 Mg PO DAILY Zoloft (Sertraline Hcl) 100 Mg Tablet 100 Mg PO DAILY Pravastatin Sodium 40 Mg Tablet 40 Mg PO HS Meloxicam 7.5 Mg Tablet 7.5 Mg PO DAILYWBKFT Melatonin 3 Mg Tablet 3 Mg PO HS PRN Levetiracetam 500 Mg Tablet 500 Mg PO BID Folic Acid 1 Mg Tablet 1 Mg PO DAILY Ferrous Sulfate 324 Mg Tablet.dr 324 Mg PO Q48HRS Donepezil Hcl 5 Mg Tablet 5 Mg PO HS Vitamin B-12 (Cyanocobalamin (Vitamin B-12)) 1,000 Mcg Tablet 1,000 Mcg PO DAILY Clotrimazole 15 Gm Cream..g. 1 [place] TP BID Amlodipine Besylate 5 Mg Tablet 5 Mg PO DAILY Albuterol Sulfate Neb Soln (Albuterol Sulfate) 2.5 Mg/3 Ml Vial.neb 3 Ml NEB PRN Q6HRS PRN Acetaminophen 500 Mg Tablet 1,000 Mg PO TID PRN I have reviewed the current psychotropics carefully including drug interactions. Risk benefit ratio favors no change other than as noted in my dictated progress note. Diagnosis: Problems: (1) Anxiety disorder (2) Dementia in Alzheimer's disease with delusions (3) Dementia in Alzheimer's disease with depression (4) Dementia, vascular, with delusions (5) Dementia, vascular, with depression (6) Impulse control disorder ANTWAN MUÑOZ MD Jun 29, 2018 22:56
--- NOTE | 2018-06-29 23:31 | NUR ---
Pt wandering in hallway at shift change. Pt A/O to self, confused, calm. Pt cooperative & compliant w/meds & assessment.
[2018-06-30 07:09] VITALS: BP 136/69
[2018-06-30] MEDS: MELOXICAM 7.5 MG TABLET PO SCH (07:53)
[2018-06-30] MEDS: amLODIPine BESYLATE 5 MG TABLET PO SCH (07:53)
[2018-06-30] MEDS: FOLIC ACID 1 MG TABLET PO SCH (07:54)
[2018-06-30] MEDS: levETIRAcetam 500 MG TABLET PO SCH ×2 (07:54→21:13)
[2018-06-30] MEDS: LACTOBACILLUS RHAMNOSUS GG 1 CAPSULE. PO SCH ×2 (07:54→21:13)
[2018-06-30] MEDS: BENZONATATE 100 MG CAPSULE. PO SCH ×5 (07:54→23:46)
[2018-06-30] MEDS: SERTRALINE 100 MG TABLET. PO SCH (07:54)
[2018-06-30] MEDS: FUROSEMIDE 20 MG TABLET PO SCH (07:54)
[2018-06-30] MEDS: CYANOCOBALAMIN (VITAMIN B-12) 1,000 MCG TABLET. PO SCH (07:54)
[2018-06-30] MEDS: SERTRALINE 25 MG TABLET. PO SCH (07:54)
[2018-06-30] MEDS: CLOTRIMAZOLE 1% TOPICAL CREAM 30GM TUBE. TP SCH ×3 (07:56→23:46)
[2018-06-30] MEDS: HALOPERIDOL 2 MG TABLET PO SCH ×3 (07:57→17:50)
[2018-06-30] MEDS: ALBUTEROL SULFATE 2.5 MG/3 ML NEBU. NEB SCH ×2 (10:04→20:23)
--- NOTE | 2018-06-30 10:04 | NUR ---
Behavior Intervention Response and Plan: BIRP Note: Behavior: Assumed Care of patient, patient located in Dining Room at shift change. Patient exhibited the following behavior Disorganized, Irritable, Compliant. Brief assessment on rounds of vital signs, medication needs, lab studies, and pain. Treatment plan problems . Intervention: Patient assessed and the following interventions initiated safety checks 15 Minute Checks Cognitive Assessment , Head to toe Assessment , Medications. Response: After interactions and interventions patient responded in the following manner, Disorganized , Wandering ,Compliant. Continue to assess behaviors and condition will continue to monitor throughout the shift as needed. Patient educated on ADL's, and hand hygiene. Plan: Continue to monitor Master Treatment Plan for patient's progress toward short term goals of Decreased Agitation, Decreased Aggression, health information specialist goals to return to previous living setting vs placement. Continue to assess patient for changes in above assessment. Monitor for medication needs, pain, and safety concerns. Hourly rounding performed to ensure safe environment.
--- NOTE | 2018-06-30 12:10 | PN ---
DATE: 06/28/2018 PSYCHIATRIC PROGRESS NOTE This is a late entry 06/28/2018 covers elements not covered in my initial note. SUBJECTIVE: I met with the patient in the evening. The patient slept 7-1/2 hours previous night. She is doing better with the Haldol 2 mg b.i.d. However, after her lunchtime she spit her meds out, then became agitated, flipped her tray, overthrew ice water down the shirt of a female nursing staff. She received an extra Haldol p.r.n., did better. She seems to have bronchitis, may be transferred to and the bronchitis could be worsening her agitation. REVIEW OF SYSTEMS: No CV, , pulmonary, eye, ENT system symptoms on review. Reliability poor. MENTAL STATUS EXAM: Oriented to herself. Insight, judgment, recent and remote memory, attention, concentration, fund of knowledge poor, consistent with her diagnosis. LABORATORY DATA: Reviewed. IMPRESSION: Unchanged from initial note. PLAN: No change from initial note. Treat the bronchitis with Dr. Barahona. ANTWAN MUÑOZ MD DR: ALBARO/dee JOB#: [id number] / [id number]
[2018-06-30 16:08] VITALS: BP 149/73
--- NOTE | 2018-06-30 17:17 | PN ---
DATE: 06/29/2018 PSYCHIATRIC PROGRESS NOTE This is a late entry of 06/29/2018, covers elements not covered in my initial note. SUBJECTIVE: I met with the patient in the evening. The patient slept 7-1/4 hours previous night. She remains confused, but less paranoid, less aggressive. She will be transferred to [place] as a day procedure for thoracenteses on Sunday. REVIEW OF SYSTEMS: Ambulation impaired with walker. Some shortness of breath. No CV, , GI, eye system symptoms on review. Reliability poor. MENTAL STATUS EXAM: Oriented to herself. Insight, judgment, recent and remote memory, attention, concentration, fund of knowledge poor, consistent with her diagnosis mentioned in my initial note. PLAN: No change from initial note. MAN Davide MUÑOZ MD DR: ALBARO/dee JOB#: [id number] / [id number]
--- NOTE | 2018-06-30 18:46 | NUR ---
pt up for meals. has been pleasantly confused. compliant with meals.
[2018-06-30] MEDS: DONEPEZIL HCL 10 MG TABLET PO SCH (21:13)
[2018-06-30] MEDS: PRAVASTATIN 20 MG TABLET. PO SCH (21:14)
--- NOTE | 2018-06-30 22:57 | PDOC ---
Exam Note: Dinesh Note: Please also refer to the separate dictated note~for this date of service dictated separately.~Patient seen individually. Discussed the patient with Nursing staff reviewed the chart.~Reviewed interim history and current functioning. Reviewed vital signs,~Labs/ Radiology~and current medications noted below. Continue current treatment with the changes noted in the dictated addendum note Assessment: Vital Signs: Vital Signs Date Time Temp Pulse Resp B/P (MAP) Pulse Ox O2 Delivery O2 Flow Rate FiO2 06/30/18 20:25 93 Room Air 06/30/18 16:08 98.3 93 20 149/73 (98) I&O Intake and Output 06/30/18 07:00 Intake Total 900 ml Balance 900 ml Intake Oral 900 ml # Bowel Movements 2 Labs: Laboratory Tests Test 06/30/18 10:15 Prothrombin Time 10.0 SEC (9.4-11.4) Prothrombin Time INR 1.0 (0.9-1.1) PTT 26 SEC (23-33) Current Medications: Meds: Current Medications Acetaminophen (Tylenol) 650 mg PRN Q6HRS PRN PO PAIN / TEMP; Start 06/15/18 at 14:30; Status Cancel Multi-Ingredient Ointment (Analgesic Wykoff) 1 hailee PRN QID PRN TP MUSCLE PAIN; Start 06/15/18 at 14:30 Al Hydroxide/Mg Hydroxide (Mylanta Plus Xs) 15 ml PRN AFTMEALHC PRN PO DYSPEPSIA; Start 06/15/18 at 14:30 Magnesium Hydroxide (Milk Of Magnesia) 2,400 mg PRN QHS PRN PO CONSTIPATION; Start 06/15/18 at 14:30 Albuterol Sulfate (Ventolin) 2.5 mg PRN Q6HRS PRN NEB SHORTNESS OF BREATH; Start 06/15/18 at 17:30 Cyanocobalamin (Vitamin B-12) 1,000 mcg DAILY PO Last administered on at 07:54; Start 06/16/18 at 09:00 Furosemide (Lasix) 20 mg DAILYAC PO Last administered on 06/30/18at 07:54; Start 06/16/18 at 07:30 Acetaminophen (Tylenol) 1,000 mg PRN TID PRN PO PAIN / TEMP Last administered on 06/19/18at 05:45; Start 06/15/18 at 17:45 Amlodipine Besylate (Norvasc) 5 mg DAILY PO Last administered on 06/30/18 07: 53; Start 06/16/18 at 09:00 Clotrimazole (Lotrimin) 1 hailee BID TP Last administered on 06/30/18at 21:14; Start 06/15/18 at 21:00 Ferrous Sulfate (Feosol) 325 mg Q48H PO Last administered on 06/29/18 07:56; Start 06/17/18 at 08:00 Folic Acid (Folic Acid) 1 mg DAILY PO Last administered on 06/30/18 07:54; Start 06/16/18 at 09:00 Levetiracetam (Keppra) 500 mg BID PO Last administered on 06/30/18 21:13; Start 06/15/18 at 21:00 Levofloxacin (Levaquin) 750 mg Q48H PO Last administered on 06/18/18 06:32; Start 06/16/18 at 06:00; Stop 06/19/18 at 15:54; Status DC Melatonin 3 mg PRN QHS PRN PO INSOMNIA; Start 06/15/18 at 17:45 Meloxicam (Mobic) 7.5 mg DAILYWBKFT PO Last administered on 06/30/18at 07:53; Start 06/16/18 at 08:00 Pravastatin Sodium (Pravachol) 40 mg QHS PO Last administered on 06/30/18at 21: 14; Start 06/15/18 at 21:00 Sertraline HCl (Zoloft) 100 mg DAILY PO Last administered on 06/30/18at 07:54; Start 06/16/18 at 09:00 Donepezil HCl (Aricept) 5 mg HS PO Last administered on 06/20/18at 19:39; Start 06/15/18 at 21:00; Stop 06/21/18 at 20:23; Status DC Haloperidol (Haldol) 2 mg PRN TID PRN PO ANXIETY / AGITATION Last administered on 06/17/18at 15:43; Start 06/15/18 at 18:00; Stop 06/17/18 at 16:31; Status DC Sertraline HCl (Zoloft) 25 mg DAILY PO Last administered on 06/30/18at 07:54; Start 06/16/18 at 09:00 Lactobacillus Rhamnosus (Culturelle) 1 cap BID PO Last administered on at 21:13; Start 06/16/18 at 09:00 Olanzapine (ZyPREXA ZYDIS) 2.5 mg PRN Q2HR PRN PO PSYCHOSIS Last administered on 06/20/18at 11:16; Start 06/16/18 at 17:30; Stop 06/21/18 at 16:57; Status DC Haloperidol Lactate (Haldol) 2 mg DAILY IM Last administered on 06/18/18at 15: 32; Start 06/18/18 at 15:15; Stop 06/18/18 at 16:43; Status DC Haloperidol (Haldol) 2 mg DAILY PO Last administered on 06/25/18at 09:34; Start 06/19/18 at 09:00; Stop 06/25/18 at 16:56; Status DC Vitamin D (Vitamin D3) 50,000 unit WEEKLY PO Last administered on 06/26/18at 08: 53; Start 06/19/18 at 21:00 Donepezil HCl (Aricept) 10 mg HS PO Last administered on 06/30/18at 21:13; Start 06/21/18 at 21:00 Haloperidol (Haldol) 2 mg PRN Q6HRS PRN PO ANXIETY / AGITATION Last administered on 06/26/18at 17:50; Start 06/21/18 at 16:45; Stop 06/29/18 at 08: 22; Status DC Albuterol Sulfate (Ventolin) 2.5 mg BID@1000,2200 NEB Last administered on 07/07at 20:23; Start 06/23/18 at 22:00 Haloperidol (Haldol) 2 mg 0900,1500 PO Last administered on 06/28/18at 09:05; Start 06/26/18 at 09:00; Stop 06/29/18 at 08:22; Status DC Benzonatate (Tessalon Perle) 100 mg [id number] PO Last administered on 06/30/18at 21:13; Start 06/27/18 at 21:00 Haloperidol (Haldol) 2 mg PRN Q6HRS PRN PO ANXIETY / AGITATION; Start at 08:30 Haloperidol (Haldol) 2 mg 0900,1500 PO Last administered on 06/29/18at 09:00; Start 06/29/18 at 09:00; Stop 06/29/18 at 13:47; Status DC Haloperidol (Haldol) 2 mg 0900,1500 PO Last administered on 06/30/18at 17:50; Start 06/29/18 at 13:47 Active Scripts Active Reported Furosemide 20 Mg Tablet 20 Mg PO DAILYAC Levofloxacin 750 Mg Tablet 750 Mg PO Q48HRS Haloperidol (Haloperidol Lactate) 5 Mg/1 Ml Ampul 5 Mg IM PRN Q4HRS PRN Haloperidol 2 Mg Tablet 2 Mg PO TID PRN Zoloft (Sertraline Hcl) 25 Mg Tablet 25 Mg PO DAILY Zoloft (Sertraline Hcl) 100 Mg Tablet 100 Mg PO DAILY Pravastatin Sodium 40 Mg Tablet 40 Mg PO HS Meloxicam 7.5 Mg Tablet 7.5 Mg PO DAILYWBKFT Melatonin 3 Mg Tablet 3 Mg PO HS PRN Levetiracetam 500 Mg Tablet 500 Mg PO BID Folic Acid 1 Mg Tablet 1 Mg PO DAILY Ferrous Sulfate 324 Mg Tablet.dr 324 Mg PO Q48HRS Donepezil Hcl 5 Mg Tablet 5 Mg PO HS Vitamin B-12 (Cyanocobalamin (Vitamin B-12)) 1,000 Mcg Tablet 1,000 Mcg PO DAILY Clotrimazole 15 Gm Cream..g. 1 Hailee TP BID Amlodipine Besylate 5 Mg Tablet 5 Mg PO DAILY Albuterol Sulfate Neb Soln (Albuterol Sulfate) 2.5 Mg/3 Ml Vial.neb 3 Ml NEB PRN Q6HRS PRN Acetaminophen 500 Mg Tablet 1,000 Mg PO TID PRN I have reviewed the current psychotropics carefully including drug interactions. Risk benefit ratio favors no change other than as noted in my dictated progress note. Diagnosis: Problems: (1) Anxiety disorder (2) Dementia in Alzheimer's disease with delusions (3) Dementia in Alzheimer's disease with depression (4) Dementia, vascular, with delusions (5) Dementia, vascular, with depression (6) Impulse control disorder ANTWAN MUÑOZ MD Jun 30, 2018 22:56
--- NOTE | 2018-07-01 00:23 | NUR ---
Patient had been cooperative, and med compliant. Patient NPO after midnight, is scheduled for Thoracentesis in the morning. Spoke with patients daughter, they want to come for the procedure. Advised her it will be after 0900 (per radiology) and they might not be able to go in to actual procedure.
[2018-07-01 06:32] VITALS: BP 149/74
[2018-07-01 08:28] VITALS: BP 149/74
[2018-07-01] MEDS: amLODIPine BESYLATE 5 MG TABLET PO SCH (08:28)
[2018-07-01] MEDS: SERTRALINE 100 MG TABLET. PO SCH (08:28)
[2018-07-01] MEDS: levETIRAcetam 500 MG TABLET PO SCH (08:28)
[2018-07-01] MEDS: FUROSEMIDE 20 MG TABLET PO SCH (08:28)
[2018-07-01] MEDS: HALOPERIDOL 2 MG TABLET PO SCH (08:28)
[2018-07-01] MEDS: LACTOBACILLUS RHAMNOSUS GG 1 CAPSULE. PO SCH (08:29)
[2018-07-01] MEDS: SERTRALINE 25 MG TABLET. PO SCH (08:29)
[2018-07-01] MEDS: BENZONATATE 100 MG CAPSULE. PO SCH (08:29)
[2018-07-01] MEDS: CYANOCOBALAMIN (VITAMIN B-12) 1,000 MCG TABLET. PO SCH (08:29)
[2018-07-01] MEDS: FERROUS SULFATE 325 MG TABLET. PO SCH (08:29)
[2018-07-01] MEDS: FOLIC ACID 1 MG TABLET PO SCH (08:29)
[2018-07-01] MEDS: CLOTRIMAZOLE 1% TOPICAL CREAM 30GM TUBE. TP SCH (08:30)
--- NOTE | 2018-07-01 10:19 | RAD ---
Examination: CHEST AP ONLY History: PORTABLE CHEST XRAY pt has pending thoracentis, developed cough with yellow mucus,congestion Comparison/Correlation: 06/28/2018 portable chest x-ray exam Findings: Portable upright frontal view of the chest was obtained. Small to moderate-sized bilateral pleural effusions are present. Pulmonary vasculature congestion noted. Adjacent bibasilar atelectasis noted. No pneumothorax. Impression: Mild increase in right pleural effusion. No significant change in left basilar effusion. Mild congestive heart failure. Electronically signed by: Mich Mayo MD (07/01/2018 10:16 AM) [facility]
[2018-07-01] MEDS: MELOXICAM 7.5 MG TABLET PO SCH (11:15)
[2018-07-01] MEDS: ALBUTEROL SULFATE 2.5 MG/3 ML NEBU. NEB SCH (11:43)
[2018-07-01] MEDS ORDERED: LIDOCAINE WITH 8.4% SOD BICARB 3 ML DISP.SYRIN. IJ ONE (12:00)
[2018-07-01 12:24] LABS: BGAS PH 7.44 (7.35-7.45)
--- NOTE | 2018-07-01 13:45 | NUR ---
Transition Record was faxed to follow-up provider with the following elements: Reason for admission, procedures, tests, principal diagnosis, pending studies, patient instructions, 12/03 contact information for unit, phone number to obtain pending test results, plan for follow-up care, physician follow-up, advanced directive information, and medication list with dose, duration and instructions. This information was included in the following documents: History and physical, lab results, study results, progress notes, social work planning form, DC instruction form, patient visit summary, and medication reconciliation form. Date & time record faxed:[id number] Record faxed to: ICU Record discussed with/ report given to: Chikis
[2018-07-01] MEDS ORDERED: ALBU2.5V14 NEB (13:49)
[2018-07-01] MEDS ORDERED: BENZ100C PO (13:50)
[2018-07-01] MEDS ORDERED: CHOL500021 PO (13:51)
[2018-07-01] MEDS ORDERED: LACT1CAP19 PO (13:52)
[2018-07-01] MEDS ORDERED: MAG355OR11 PO (13:52)
[2018-07-01] MEDS ORDERED: MAGN2400 PO (13:53)
[2018-07-01] MEDS ORDERED: METH29OI TP (13:54)
[2018-07-01] MEDS ORDERED: HALO2TAB PO (13:59)
--- NOTE | 2018-07-01 18:20 | RAD ---
Limited chest ultrasound dated 07/01/2018. No comparison available. CLINICAL INDICATION: Evaluate for pleural effusion. FINDINGS: 3 Sonographic images submitted. Images show a minimal amount of fluid, labeled right back. IMPRESSION: Small right pleural effusion. Electronically signed by: Jonathan Salazar MD (07/01/2018 6:17 PM) [facility]
--- NOTE | 2018-07-01 19:21 | DS ---
DATE OF DISCHARGE: 07/01/2018 DISCHARGE SUMMARY/PSYCHIATRIC PROGRESS NOTE This note covers elements not covered in my initial note of 07/01/2018. REASON FOR ADMISSION: Please refer to the admission history for details. Briefly, the patient is an 88-year-old female referred to us from [facility] after she had failed placement in a couple of facilities. She is getting extremely labile in her mood, aggressive within the context of her dementia with worsening psychotic symptoms in the evening and was having failed outpatient psychiatric interventions, referred for inpatient psychiatric stabilization. SIGNIFICANT FINDINGS AND CLINICAL COURSE: Following admission, the patient was seen daily individually by myself from a psychiatric standpoint, medical followup with Dr. Barahona/Dr. Red[place]. She remained confused, anxious, quite paranoid, delusional, agitated. She has a severe allergy TO DAIRY PRODUCTS and many psychotropics can be used as a consequence of this including Zyprexa. She did respond very positively to Haldol 2 mg a day and this was later increased to 2 mg twice a day on account of worsening psychosis, agitation. She is also on Zoloft 125 mg a day, Aricept 10 mg a day, Keppra 500 b.i.d. for seizures, melatonin 3 mg at bedtime p.r.n. and Haldol p.r.n. REVIEW OF SYSTEMS: Prior to discharge on 07/01/2018, no CV, , pulmonary, eye, ENT system symptoms on review. Reliability poor. She does ambulate with a walker. MENTAL STATUS EXAM: Oriented to herself. Insight, judgment, recent and remote memory, attention, concentration, fund of knowledge poor, consistent with her diagnosis. She is due to go to Radiology for thoracenteses, but this was not done and she was found to be in CHF exacerbation and transferred to the medical surgical floor per Dr. Barahona for further management on 07/01/2018. CONDITION ON DISCHARGE: Improved from a psychiatric standpoint, somewhat compromised medically. FINAL DIAGNOSES: Major neurocognitive disorder, Alzheimer, vascular with delusion, depression, behavioral disturbance; anxiety disorder, unspecified; impulse control disorder, unspecified; congestive heart failure exacerbation; history of seizure disorder; hyperlipidemia; pulmonary hypertension; pericardial effusion; osteoporosis. Rest unchanged from admission. DISCHARGE MEDICATIONS: Please refer to the MRAD. DISCHARGE INSTRUCTIONS: Psychiatric and medical followup to be determined on . MAN Davide MUÑOZ MD DR: Katherine JOB#: [id number] / [id number]
--- NOTE | 2018-07-01 19:45 | PN ---
DATE: 06/30/2018 PSYCHIATRIC PROGRESS NOTE This late entry 06/30/2018 covers elements not covered in my initial note. SUBJECTIVE: I met with the patient in the evening. The patient slept 5-1/4 hours previous night. The patient remains confused, but otherwise not aggressive. REVIEW OF SYSTEMS: Ambulation impaired with walker. No CV, , pulmonary, eye, ENT system symptoms on review. Reliability poor. MENTAL STATUS EXAM: Oriented to herself. Insight, judgment, recent and remote memory, attention, concentration, fund of knowledge poor, consistent with her diagnosis mentioned in my initial note. PLAN: No change from initial note. The patient is due to have her thoracenteses on 07/01/2018. MAN Davide MUÑOZ MD DR: ALBARO/dee JOB#: [id number] / [id number]
--- NOTE | 2018-07-02 22:36 | PDOC ---
Exam Note: Dinesh Note: Late entry for DOD for 07/01/2018. Please also refer to the separate dictated note~for this date of service dictated separately.~Patient seen individually. Discussed the patient with Nursing staff reviewed the chart.~Reviewed interim history and current functioning. Reviewed vital signs,~Labs/ Radiology~and current medications noted below. Continue current treatment with the changes noted in the dictated addendum note Assessment: Vital Signs: Vital Signs Date Time Temp Pulse Resp B/P (MAP) Pulse Ox O2 Delivery O2 Flow Rate FiO2 07/01/18 11:44 93 Room Air 07/01/18 08:28 96 149/74 07/01/18 06:32 98.4 22 Current Medications: Meds: Current Medications Acetaminophen (Tylenol) 650 mg PRN Q6HRS PRN PO PAIN / TEMP; Start 06/15/18 at 14:30; Status Cancel Multi-Ingredient Ointment (Analgesic Brookesmith) 1 hailee PRN QID PRN TP MUSCLE PAIN; Start 06/15/18 at 14:30; Stop 07/01/18 at 13:45; Status DC Al Hydroxide/Mg Hydroxide (Mylanta Plus Xs) 15 ml PRN AFTMEALHC PRN PO DYSPEPSIA; Start 06/15/18 at 14:30; Stop 07/01/18 at 13:45; Status DC Magnesium Hydroxide (Milk Of Magnesia) 2,400 mg PRN QHS PRN PO CONSTIPATION; Start 06/15/18 at 14:30; Stop 07/01/18 at 13:45; Status DC Albuterol Sulfate (Ventolin) 2.5 mg PRN Q6HRS PRN NEB SHORTNESS OF BREATH; Start 06/15/18 at 17:30; Stop 07/01/18 at 13:45; Status DC Cyanocobalamin (Vitamin B-12) 1,000 mcg DAILY PO Last administered on at 08:29; Start 06/16/18 at 09:00; Stop 07/01/18 at 13:45; Status DC Furosemide (Lasix) 20 mg DAILYAC PO Last administered on 07/01/18at 08:28; Start 06/16/18 at 07:30; Stop 07/01/18 at 13:45; Status DC Acetaminophen (Tylenol) 1,000 mg PRN TID PRN PO PAIN / TEMP Last administered on 06/19/18at 05:45; Start 06/15/18 at 17:45; Stop 07/01/18 at 13:45; Status DC Amlodipine Besylate (Norvasc) 5 mg DAILY PO Last administered on 07/01/18at 08: 28; Start 06/16/18 at 09:00; Stop 07/01/18 at 13:45; Status DC Clotrimazole (Lotrimin) 1 hailee BID TP Last administered on 07/01/18at 08:30; Start 06/15/18 at 21:00; Stop 07/01/18 at 13:45; Status DC Ferrous Sulfate (Feosol) 325 mg Q48H PO Last administered on 07/01/18at 08:29; Start 06/17/18 at 08:00; Stop 07/01/18 at 13:45; Status DC Folic Acid (Folic Acid) 1 mg DAILY PO Last administered on 07/01/18at 08:29; Start 06/16/18 at 09:00; Stop 07/01/18 at 13:45; Status DC Levetiracetam (Keppra) 500 mg BID PO Last administered on 07/01/18at 08:28; Start 06/15/18 at 21:00; Stop 07/01/18 at 13:45; Status DC Levofloxacin (Levaquin) 750 mg Q48H PO Last administered on 06/18/18at 06:32; Start 06/16/18 at 06:00; Stop 06/19/18 at 15:54; Status DC Melatonin 3 mg PRN QHS PRN PO INSOMNIA; Start 06/15/18 at 17:45; Stop at 13:45; Status DC Meloxicam (Mobic) 7.5 mg DAILYWBKFT PO Last administered on 07/01/18at 11:15; Start 06/16/18 at 08:00; Stop 07/01/18 at 13:45; Status DC Pravastatin Sodium (Pravachol) 40 mg QHS PO Last administered on 06/30/18at 21: 14; Start 06/15/18 at 21:00; Stop 07/01/18 at 13:45; Status DC Sertraline HCl (Zoloft) 100 mg DAILY PO Last administered on 07/01/18at 08:28; Start 06/16/18 at 09:00; Stop 07/01/18 at 13:45; Status DC Donepezil HCl (Aricept) 5 mg HS PO Last administered on 06/20/18at 19:39; Start 06/15/18 at 21:00; Stop 06/21/18 at 20:23; Status DC Haloperidol (Haldol) 2 mg PRN TID PRN PO ANXIETY / AGITATION Last administered on 06/17/18at 15:43; Start 06/15/18 at 18:00; Stop 06/17/18 at 16:31; Status DC Sertraline HCl (Zoloft) 25 mg DAILY PO Last administered on 07/01/18at 08:29; Start 06/16/18 at 09:00; Stop 07/01/18 at 13:45; Status DC Lactobacillus Rhamnosus (Culturelle) 1 cap BID PO Last administered on at 08:29; Start 06/16/18 at 09:00; Stop 07/01/18 at 13:45; Status DC Olanzapine (ZyPREXA ZYDIS) 2.5 mg PRN Q2HR PRN PO PSYCHOSIS Last administered on 06/20/18at 11:16; Start 06/16/18 at 17:30; Stop 06/21/18 at 16:57; Status DC Haloperidol Lactate (Haldol) 2 mg DAILY IM Last administered on 06/18/18at 15: 32; Start 06/18/18 at 15:15; Stop 06/18/18 at 16:43; Status DC Haloperidol (Haldol) 2 mg DAILY PO Last administered on 06/25/18at 09:34; Start 06/19/18 at 09:00; Stop 06/25/18 at 16:56; Status DC Vitamin D (Vitamin D3) 50,000 unit WEEKLY PO Last administered on 06/26/18at 08: 53; Start 06/19/18 at 21:00; Stop 07/01/18 at 13:45; Status DC Donepezil HCl (Aricept) 10 mg HS PO Last administered on 06/30/18at 21:13; Start 06/21/18 at 21:00; Stop 07/01/18 at 13:45; Status DC Haloperidol (Haldol) 2 mg PRN Q6HRS PRN PO ANXIETY / AGITATION Last administered on 06/26/18at 17:50; Start 06/21/18 at 16:45; Stop 06/29/18 at 08: 22; Status DC Albuterol Sulfate (Ventolin) 2.5 mg BID@1000,2200 NEB Last administered on 08/06at 11:43; Start 06/23/18 at 22:00; Stop 07/01/18 at 13:45; Status DC Haloperidol (Haldol) 2 mg 0900,1500 PO Last administered on 06/28/18at 09:05; Start 06/26/18 at 09:00; Stop 06/29/18 at 08:22; Status DC Benzonatate (Tessalon Perle) 100 mg [id number] PO Last administered on 07/01/18at 08:29; Start 06/27/18 at 21:00; Stop 07/01/18 at 13:45; Status DC Haloperidol (Haldol) 2 mg PRN Q6HRS PRN PO ANXIETY / AGITATION; Start at 08:30; Stop 07/01/18 at 13:45; Status DC Haloperidol (Haldol) 2 mg 0900,1500 PO Last administered on 06/29/18at 09:00; Start 06/29/18 at 09:00; Stop 06/29/18 at 13:47; Status DC Haloperidol (Haldol) 2 mg 0900,1500 PO Last administered on 07/01/18at 08:28; Start 06/29/18 at 13:47; Stop 07/01/18 at 13:45; Status DC Lidocaine/Sodium Bicarbonate (Buffered Lidocaine 1%) 3 ml 1X ONCE IJ ; Start 07/01/18 at 12:00; Stop 07/01/18 at 12:01; Status DC Active Scripts Active Reported Haloperidol 2 Mg Tablet 1 Tab PO 0900,1500 Analgesic Brookesmith (Methyl Salicylate/Menthol) 28 Gm Oint...g. 1 Applic TP QIDPRN PRN Milk Of Magnesia (Magnesium Hydroxide) 2,400 Mg/10 Ml Oral.susp 2,400 Mg PO HS PRN Maalox Advanced Suspension (Mag Hydrox/Aluminum Hyd/Simeth) 355 Ml Oral.susp 15 Ml PO QID PRN Culturelle (Lactobacillus Rhamnosus Gg) 1 Each Cap.sprink 1 Each PO BID D3-50 (Cholecalciferol (Vitamin D3)) 50,000 Unit Capsule 1 Cap PO WEEKLY Tessalon Perle (Benzonatate) 100 Mg Capsule 1 Cap PO TID Albuterol Sulfate Conc Neb Soln (Albuterol Sulfate) 2.5 Mg/0.5 Ml Vial.neb 1 Vial NEB 1000,2200 Furosemide 20 Mg Tablet 20 Mg PO DAILYAC Haloperidol 2 Mg Tablet 2 Mg PO PRN Q6HRS PRN Zoloft (Sertraline Hcl) 25 Mg Tablet 25 Mg PO DAILY Zoloft (Sertraline Hcl) 100 Mg Tablet 100 Mg PO DAILY Pravastatin Sodium 40 Mg Tablet 40 Mg PO HS Meloxicam 7.5 Mg Tablet 7.5 Mg PO DAILYWBKFT Melatonin 3 Mg Tablet 3 Mg PO HS PRN Levetiracetam 500 Mg Tablet 500 Mg PO BID Folic Acid 1 Mg Tablet 1 Mg PO DAILY Ferrous Sulfate 324 Mg Tablet.dr 324 Mg PO Q48HRS Donepezil Hcl 5 Mg Tablet 10 Mg PO HS Vitamin B-12 (Cyanocobalamin (Vitamin B-12)) 1,000 Mcg Tablet 1,000 Mcg PO DAILY Clotrimazole 15 Gm Cream..g. 1 Hailee TP BID Amlodipine Besylate 5 Mg Tablet 5 Mg PO DAILY Albuterol Sulfate Neb Soln (Albuterol Sulfate) 2.5 Mg/3 Ml Vial.neb 3 Ml NEB PRN Q6HRS PRN Acetaminophen 500 Mg Tablet 1,000 Mg PO TID PRN I have reviewed the current psychotropics carefully including drug interactions. Risk benefit ratio favors no change other than as noted in my dictated progress note. Diagnosis: Problems: (1) Chronic diastolic CHF (congestive heart failure) (2) Bilateral pleural effusion (3) Anxiety disorder (4) Dementia in Alzheimer's disease with delusions (5) Dementia in Alzheimer's disease with depression (6) Dementia, vascular, with delusions (7) Dementia, vascular, with depression (8) Impulse control disorder ANTWAN MUÑOZ MD Jul 02, 2018 22:36
== END 2018-07-01 13:43 | disposition short-term general hospital (02) | DRG 57 ==
LOC: GEROPSY 12:56
PROVIDERS: ADMIT Psychiatry & Neurology Psychiatry; ATTEND Psychiatry & Neurology Psychiatry
DX: G30.9 Alzheimer's disease, unspecified (principal); F01.51 Vascular dementia, unspecified severity, with behavioral disturbance; F02.81 Dementia in other diseases classified elsewhere, unspecified severity, with behavioral disturbance; I31.3 Pericardial effusion (noninflammatory); J98.11 Atelectasis; B35.1 Tinea unguium; D50.9 Iron deficiency anemia, unspecified; E78.5 Hyperlipidemia, unspecified; F32.9 Major depressive disorder, single episode, unspecified; F41.9 Anxiety disorder, unspecified; F63.9 Impulse disorder, unspecified; G40.909 Epilepsy, unspecified, not intractable, without status epilepticus; I11.0 Hypertensive heart disease with heart failure; I27.20 Pulmonary hypertension, unspecified; I50.9 Heart failure, unspecified; M19.90 Unspecified osteoarthritis, unspecified site; M81.0 Age-related osteoporosis without current pathological fracture; Z66 Do not resuscitate; Z79.899 Other long term (current) drug therapy; Z87.81 Personal history of (healed) traumatic fracture; Z88.0 Allergy status to penicillin; Z88.8 Allergy status to other drugs, medicaments and biological substances; Z91.011 Allergy to milk products
CPT/HCPCS: 36415; 36600; 71045; 71250; 76604; 80053; 80061; 81001; 82306; 82607; 82803; 83036; 83540; 83550; 83735; 84436; 84443; 84480; 85007; 85025; 85610; 85730; 86592; 93005; 94640; J1630; J7613; 97110; 97116; 97530; 97535

== ENCOUNTER 2018-07-01 14:11 | Inpatient (IN) | payer MEDICARE ==
[~2018-07-01] VITALS: Ht 157.5 cm; Wt 51.0 kg
[2018-07-01] VITALS (7 sets, daily range): BP systolic 97–132; BP diastolic 50–56
[~2018-07-01 14:11] MED LIST: ACET500T68 PO; ALBU2.5V14 NEB; ALBU2.5V5 NEB; AMLO5TAB7 PO; BENZ100C PO; CHOL500021 PO; CLOT15CR4 TP; CYAN10005 PO; DONE5TAB7 PO; FERR324T5 PO; FOLI1TAB16 PO; FURO20TA3 PO; HALO2TAB PO; HALO5AMP IM; LACT1CAP19 PO; LEVE500T6 PO; LEVO750T5 PO; MAG355OR11 PO; MAGN2400 PO; MELA3TAB2 PO; MELO7.5T29 PO; METH29OI TP; PRAV40TA2 PO; SERT100T PO; SERT25TA PO
[2018-07-01] MEDS ORDERED: ALBUTEROL SULFATE 2.5 MG/3 ML NEBU. NEB PRN (14:30)
[2018-07-01] MEDS ORDERED: FUROSEMIDE 40 MG/4 ML VIAL IVP ONE (14:30)
[2018-07-01] MEDS ORDERED: METHYL SALICYLATE/MENTHOL TOPICAL OINTMENT 29GM TUBE. TP PRN (14:30)
[2018-07-01] MEDS ORDERED: ACETAMINOPHEN 500 MG TABLET PO PRN (14:45)
[2018-07-01 14:46] LABS: BASO % 1 % (0-3); EOS # 0.1 x10^3/uL (0.0-0.7); EOS % 2 % (0-3); HEMATOCRIT 39.5 % (36.0-47.0); HEMOGLOBIN 12.7 g/dL (12.0-15.5); LYMPH # 0.8 x10^3/uL (1.0-4.8); LYMPH % 11 % (24-48); MEAN CORPUSCULAR HEMOGLOBIN 28 pg (25-35); MEAN CORPUSCULAR HGB CONC 32 g/dL (31-37); MEAN CORPUSCULAR VOLUME 86 fL (79-100); MONO # 0.9 x10^3/uL (0.0-1.1); MONO % 13 % (0-9); NEUT # 5.2 x10^3uL (1.8-7.7); NEUT % 73 % (31-73); PLATELET COUNT 252 x10^3/uL (140-400); RED BLOOD COUNT 4.62 x10^6/uL (3.50-5.40); RED CELL DISTRIBUTION WIDTH 15.1 % (11.5-14.5)
[2018-07-01] MEDS ORDERED: MAGNESIUM HYDROXIDE 2,400 MG/30 ML ORAL.SUSP. PO PRN (15:00)
[2018-07-01] MEDS ORDERED: MAG HYDROX/AL HYDROX/SIMETH 30 ML ORAL.SUSP PO PRN (15:00)
[2018-07-01 15:08] LABS: ALBUMIN 3.3 g/dL (3.4-5.0); ALBUMIN/GLOBULIN RATIO 0.8 (1.0-1.7); CALCIUM 8.8 mg/dL (8.5-10.1); CREATININE 0.8 mg/dL (0.6-1.0); GFR 67.8; POTASSIUM 3.5 mmol/L (3.5-5.1); TOTAL BILIRUBIN 0.4 mg/dL (0.2-1.0); TOTAL PROTEIN 7.2 g/dL (6.4-8.2)
--- NOTE | 2018-07-01 16:15 | HP ---
ADMIT DATE: 07/01/2018 HISTORY OF PRESENT ILLNESS: The patient is an 88-year-old female patient who was referred to [facility] from [facility] after she presented there with increased agitation, aggression, throwing food. She was angry, confused, reportedly has advanced dementia. Her behaviors were unmanageable and she had been removed from her prior replacement consequent to her behavior and that being at home with her daughter as well. She was deemed potential danger and had failed outpatient psychiatric intervention and was admitted for inpatient psychiatric stabilization. She was noted to have recurrent bouts of cough with whitish to yellowish sputum and her chest x-ray showed marked bilateral effusion. She has had a chest x-ray and CT scan last Sunday and the radiologist was consulted for thoracentesis. Unfortunately, that could not be accomplished in the weekend and when I saw her this morning at the [facility], she continued to have cough with mostly whitish to occasionally yellowish sputum. She was very confused, very unsteady, and lethargic. Therefore, I ordered blood gases as I was worried that she might be retaining carbon dioxide. In fact, her pH was 7.44, pCO2 of 48, pO2 of 59, bicarbonate was 33, and oxygen saturation was 90% on room air. Her repeat chest x-ray today showed that there is an increase in the right pleural effusion, no significant change in her left basilar effusion, mild congestive heart failure. When I spoke to her daughter, apparently, she had had thoracentesis done 3 times over the last year and I spoke with her environmental services director and apparently most of the time the pleural fluid was transudate. The patient was on a small dose of Lasix 20 mg once a day and she carries a diagnosis of diastolic congestive heart failure. In fact, her most recent echocardiogram showed her ejection fraction to be 55-60% according to her environmental services director, and therefore, I felt that we did send her down for thoracentesis by the applications tester. Unfortunately, she was too sedated as she is on Haldol to be able to cooperate with the radiologist and therefore we transferred her to ICU with a plan to consult the training professional. Start her on IV Lasix and attempt thoracentesis once again when she is more awake. I also consulted Dr. العراقي to see her as she seemed to be extremely sedated and might require some changes in her psychotropic medication. The patient herself was extremely sedated and she is demented, does not offer any meaningful complaint. PAST MEDICAL HISTORY: Significant for seizure disorder for which she is now on Keppra. She has Alzheimer's disease and has been extremely combative, restless, agitated, and that led to her [facility]. She carries a diagnosis of bronchiectasis, hypertension, hyperlipidemia, chronic diastolic congestive heart failure. PAST SURGICAL HISTORY: Significant for left hip fracture, status post open reduction and internal fixation. Her other medical problems include pulmonary hypertension as well as pericardial effusion. FAMILY HISTORY: Unremarkable. SOCIAL HISTORY: She apparently lives with her daughter. She does not smoke, drink alcohol, or use any recreational drugs. ALLERGIES: She is allergic to DAIRY PRODUCTS. She also is allergic to RISPERDAL and history of allergy to PENICILLIN. She is also allergic to LEVOFLOXACIN and SOYBEAN. MEDICATIONS: She is currently on following medications: She is on Aricept 10 mg at bedtime, albuterol sulfate 2.5 mg in 3 mL by nebulizer every 6 hours. She is on ferrous sulfate 325 mg once a day, pravastatin 40 mg at bedtime, amlodipine 5 mg once a day. She is on meloxicam 7.5 mg daily, analgesic balm applied topically 4 times a day for muscle pain, Tylenol 6000 mg 3 times a day, levetiracetam for Keppra 500 mg twice a day, sertraline for Zoloft 100 mg once a day, sertraline 25 mg once a day, haloperidol 2 mg p.o. every 6 hours as needed for psychosis and haloperidol 2 mg p.o. scheduled at 9:00 a.m. and 1500 p.m. She is on furosemide 20 mg daily and she is on benzonatate 100 mg 3 times a day, Maalox 15 mL 4 times a day, milk of magnesia 30 mL p.o. daily p.r.n. for constipation, lactobacillus rhamnosus 1 capsule twice a day. She is on clotrimazole cream applied topically twice a day, cyanocobalamin 1000 mcg p.o. daily, folic acid 1 mg once a day, cholecalciferol 50,000 International Unit once a week. She is on melatonin 3 mg at bedtime. REVIEW OF SYSTEMS: Unobtainable. PHYSICAL EXAMINATION: GENERAL: When I examined her today, she was very sleepy, but arousable, pale, cachectic. No jaundice, cyanosis, or thyromegaly. No jugular venous distention. No lower limb edema. VITAL SIGNS: Her heart rate was 96, blood pressure was 149/74, temperature was 98.4, respiratory rate 22, and oxygen saturation was 92% on room air. HEAD, EYES, EARS, NOSE AND THROAT: Showed normocephalic, atraumatic. NECK: Supple. HEART: Showed normal first and second heart sounds with no gallop, rub, or murmur. CHEST: Her chest showed central trachea, equal bilateral expansion, air entry, vesicular sounds with crepitation bilaterally. Very few scattered rhonchi. Dull percussion noted on both sides, more so on the left than right. ABDOMEN: Scaphoid, soft, nontender. No guarding or rigidity. No organomegaly. All hernial orifices intact. Bowel sounds normal. NEUROLOGIC: She was very lethargic, but arousable. All cranial nerves intact. She moves extremities without difficulty. LABORATORY DATA: Her most recent lab work showed white cell count of 8200, hemoglobin 12.6, hematocrit 38, MCV 86, and platelet count 263,000. Her most recent chemistry showed serum sodium 141, potassium 3.7, chloride 104, bicarbonate 29, anion gap of 8, BUN of 21, creatinine 0.8, estimated GFR was 68 mL per minute. Her glucose was 97, calcium was 8.6. Total bilirubin, AST, ALT, alkaline phosphatase were normal. Total protein was 7. Albumin was 3.3. Her vitamin B12 was more than 1000 pg/mL. Vitamin D was low at 22. Her TSH, total T4, total T3 were all normal. Her chest x-ray showed that she has small to moderate size bilateral pleural effusion. At present, pulmonary vasculature congestion was noted, adjacent bibasilar atelectasis noted, no pneumothorax. IMPRESSION AND PLAN: The patient was admitted with acute on chronic diastolic congestive heart failure with large bilateral pleural effusions. An attempt was made for thoracentesis; however, the patient was too sedated to cooperate with the interventional radiologist, and therefore, the patient was admitted to the ICU, started on IV Lasix. We will repeat all her lab work and if there is any leukocytosis, we might have to start her on IV antibiotic. I did speak with , her environmental services director. Apparently, she had thoracentesis done multiple times and all of the time the pleural fluid was determined to be transudate. I will continue all her medications. I will change her Lasix to be given IV. She will receive 40 mg once a day. Once she is more awake and alert, we might attempt to do thoracentesis again. I did consult Dr. Muhammad and also Dr. العراقي to follow her here from the psychiatric point of view and I said they feel that she is too sedated with the Haldol. MARLI TRAN MD DR: NICHOLAS/dee JOB#: [id number] / [id number]
[2018-07-01] MEDS ORDERED: HALOPERIDOL 1 MG TABLET PO PRN (18:45)
[2018-07-01] MEDS: LACTOBACILLUS RHAMNOSUS GG 1 CAPSULE. PO SCH (20:29)
[2018-07-01] MEDS: DONEPEZIL HCL 10 MG TABLET PO SCH (20:29)
[2018-07-01] MEDS: ALBUTEROL SULFATE 2.5 MG/3 ML NEBU. NEB SCH (20:29)
[2018-07-01] MEDS: levETIRAcetam 500 MG TABLET PO SCH (20:29)
[2018-07-01] MEDS: PRAVASTATIN 20 MG TABLET. PO SCH (20:30)
[2018-07-01] MEDS: POTASSIUM CHLORIDE 20 MEQ TABLET.ER. PO SCH (20:30)
[2018-07-01] MEDS: MELATONIN 3 MG TABLET PO PRN (20:30)
[2018-07-01] MEDS: BENZONATATE 100 MG CAPSULE. PO SCH (20:30)
[2018-07-01] MEDS: CLOTRIMAZOLE 1% TOPICAL CREAM 30GM TUBE. TP SCH (21:00)
[2018-07-01] MEDS ORDERED: NON FORMULARY ITEM (Albuterol Sulfate (Albuterol Sulfate Conc Neb Soln) 1 VIAL) NEB SCH (22:00)
[2018-07-02] VITALS (23 sets, daily range): BP systolic 92–142; BP diastolic 40–69
[2018-07-02 06:14] LABS: CALCIUM 8.8 mg/dL (8.5-10.1); CREATININE 1.2 mg/dL (0.6-1.0); GFR 42.5; MAGNESIUM 2.2 mg/dL (1.8-2.4); POTASSIUM 3.6 mmol/L (3.5-5.1)
[2018-07-02] MEDS: amLODIPine BESYLATE 5 MG TABLET PO SCH (09:00)
[2018-07-02] MEDS: BENZONATATE 100 MG CAPSULE. PO SCH ×3 (09:00→20:49)
[2018-07-02] MEDS: levETIRAcetam 500 MG TABLET PO SCH ×2 (09:00→20:50)
[2018-07-02] MEDS ORDERED: SERTRALINE 25 MG TABLET. PO SCH (09:00)
[2018-07-02] MEDS: FOLIC ACID 1 MG TABLET PO SCH (09:00)
[2018-07-02] MEDS: CLOTRIMAZOLE 1% TOPICAL CREAM 30GM TUBE. TP SCH ×2 (09:00→20:50)
[2018-07-02] MEDS ORDERED: SERTRALINE 100 MG TABLET. PO SCH (09:00)
[2018-07-02] MEDS: POTASSIUM CHLORIDE 20 MEQ TABLET.ER. PO SCH ×2 (09:00→20:50)
[2018-07-02] MEDS: LACTOBACILLUS RHAMNOSUS GG 1 CAPSULE. PO SCH ×2 (09:00→20:49)
[2018-07-02] MEDS: CYANOCOBALAMIN (VITAMIN B-12) 1,000 MCG TABLET. PO SCH (09:00)
[2018-07-02] MEDS: ALBUTEROL SULFATE 2.5 MG/3 ML NEBU. NEB SCH ×2 (09:27→20:31)
--- NOTE | 2018-07-02 10:00 | PDOC2 ---
CONSULT Date of Admission DATE: 07/02/18 TIME: 10:00 History of Present Illness Ms Owens is an 88 year old female initially admitted to [facility] with advanced dementia, aggression and uncontrollable behaviors. She apparently began developing some dyspnea and cough and CXR revealed pleural effusion. She has a history of effusion requiring thoracentesis on several occasions and diastolic heart failure so she was set up for a repeat thoracentesis. she was found to be too sedated to cooperate however and has been admitted to the ICU for IV lasix and consideration of thoracentesis at later date if required. This am she remains very sedated and not awake enough to interview. History is obtained from chart and nursing. Blood pressure is borderline but remains within normal limits, no significant rhythm issues and maintaining sao2 in the upper 90s on 2 liters nasal cannula oxygen. Cardiovascular: CHF, hyperipidemia, pulmonary hypertension, Other (pericarial effusion) CENTRAL NERVOUS SYSTEM: Dementia, Seizure Psych: Depression, Other (dementia) Musculoskeletal: Other (osteoporosis) Past Surgical History ORIF hip Family History unknown Social History no known ETOH or drug abuse, non smoker per the chart Current Medications Current Medications Albuterol Sulfate (Ventolin) 2.5 mg PRN Q6HRS PRN NEB SHORTNESS OF BREATH; Start 07/01/18 at 14:30 Vitamin D (Vitamin D3) 50,000 unit WEEKLY PO ; Start 07/08/18 at 09:00 Cyanocobalamin (Vitamin B-12) 1,000 mcg DAILY PO ; Start 07/02/18 at 09:00 Lactobacillus Rhamnosus (Culturelle) 1 cap BID PO Last administered on at 20:29; Start 07/01/18 at 21:00 Multi-Ingredient Ointment (Analgesic [place]) 1 hailee QIDPRN PRN TP MUSCLE PAIN; Start 07/01/18 at 14:30 Sertraline HCl (Zoloft) 100 mg DAILY PO ; Start 07/02/18 at 09:00 Acetaminophen (Tylenol) 1,000 mg PRN TID PRN PO PAIN / TEMP; Start 07/01/18 at 14:45 Non-Formulary Medication (Albuterol Sulfate (Albuterol Sulfate Conc Neb Soln)) 1 vial 1000,2200 NEB ; Start 07/01/18 at 22:00; Status UNV Amlodipine Besylate (Norvasc) 5 mg DAILY PO ; Start 07/02/18 at 09:00 Benzonatate (Tessalon Perle) 100 mg [id number] PO Last administered on 07/01/18at 20:30; Start 07/01/18 at 21:00 Clotrimazole (Lotrimin) 1 hailee BID TP ; Start 07/01/18 at 21:00 Donepezil HCl (Aricept) 10 mg HS PO Last administered on 07/01/18at 20:29; Start 07/01/18 at 21:00 Ferrous Sulfate (Feosol) 325 mg Q48H PO ; Start 07/03/18 at 08:00 Folic Acid (Folic Acid) 1 mg DAILY PO ; Start 07/02/18 at 09:00 Levetiracetam (Keppra) 500 mg BID PO Last administered on 07/01/18at 20:29; Start 07/01/18 at 21:00 Al Hydroxide/Mg Hydroxide (Mylanta Plus Xs) 15 ml PRN QID PRN PO DYSPEPSIA; Start 07/01/18 at 15:00 Magnesium Hydroxide (Milk Of Magnesia) 2,400 mg PRN QHS PRN PO CONSTIPATION; Start 07/01/18 at 15:00 Melatonin 3 mg PRN QHS PRN PO INSOMNIA Last administered on 07/01/18at 20:30; Start 07/01/18 at 15:00 Pravastatin Sodium (Pravachol) 40 mg QHS PO Last administered on 07/01/18at 20: 30; Start 07/01/18 at 21:00 Sertraline HCl (Zoloft) 25 mg DAILY PO ; Start 07/02/18 at 09:00 Furosemide (Lasix) 40 mg 1X ONCE IVP Last administered on 07/01/18at 15:21; Start 07/01/18 at 14:30; Stop 07/01/18 at 14:36; Status DC Furosemide (Lasix) 40 mg DAILY IVP ; Start 07/02/18 at 09:00 Potassium Chloride (Klor-Con) 20 meq BID PO Last administered on 07/01/18at 20: 30; Start 07/01/18 at 21:00 Albuterol Sulfate (Ventolin) 2.5 mg Q12H NEB Last administered on 07/02/18at 09 :27; Start 07/01/18 at 22:00 Haloperidol (Haldol) 1 mg PRN Q4HRS PRN PO agitation; Start 07/01/18 at 18:45 Active Scripts Active Reported Haloperidol 2 Mg Tablet 1 Tab PO 0900,1500 Analgesic [place] (Methyl Salicylate/Menthol) 28 Gm Oint...g. 1 Applic TP QIDPRN PRN Milk Of Magnesia (Magnesium Hydroxide) 2,400 Mg/10 Ml Oral.susp 2,400 Mg PO HS PRN Maalox Advanced Suspension (Mag Hydrox/Aluminum Hyd/Simeth) 355 Ml Oral.susp 15 Ml PO QID PRN Culturelle (Lactobacillus Rhamnosus Gg) 1 Each Cap.sprink 1 Each PO BID D3-50 (Cholecalciferol (Vitamin D3)) 50,000 Unit Capsule 1 Cap PO WEEKLY Tessalon Perle (Benzonatate) 100 Mg Capsule 1 Cap PO TID Albuterol Sulfate Conc Neb Soln (Albuterol Sulfate) 2.5 Mg/0.5 Ml Vial.neb 1 Vial NEB 1000,2200 Furosemide 20 Mg Tablet 20 Mg PO DAILYAC Haloperidol 2 Mg Tablet 2 Mg PO PRN Q6HRS PRN Zoloft (Sertraline Hcl) 25 Mg Tablet 25 Mg PO DAILY Zoloft (Sertraline Hcl) 100 Mg Tablet 100 Mg PO DAILY Pravastatin Sodium 40 Mg Tablet 40 Mg PO HS Meloxicam 7.5 Mg Tablet 7.5 Mg PO DAILYWBKFT Melatonin 3 Mg Tablet 3 Mg PO HS PRN Levetiracetam 500 Mg Tablet 500 Mg PO BID Folic Acid 1 Mg Tablet 1 Mg PO DAILY Ferrous Sulfate 324 Mg Tablet.dr 324 Mg PO Q48HRS Donepezil Hcl 5 Mg Tablet 10 Mg PO HS Vitamin B-12 (Cyanocobalamin (Vitamin B-12)) 1,000 Mcg Tablet 1,000 Mcg PO DAILY Clotrimazole 15 Gm Cream..g. 1 Hailee TP BID Amlodipine Besylate 5 Mg Tablet 5 Mg PO DAILY Albuterol Sulfate Neb Soln (Albuterol Sulfate) 2.5 Mg/3 Ml Vial.neb 3 Ml NEB PRN Q6HRS PRN Acetaminophen 500 Mg Tablet 1,000 Mg PO TID PRN Allergies: Coded Allergies: Milk Containing Products (Verified Allergy, Severe, 07/01/18) levofloxacin (Verified Allergy, Severe, 07/01/18) Pt family reports pt had grand mal seizures 3 days after starting medication risperidone (Verified Allergy, Severe, 07/01/18) Seizures Penicillins (Verified Allergy, Intermediate, 07/01/18) soy (Verified Allergy, Unknown, 07/01/18) Review of System unobtainable due to sedation General: Other (sedated) HEENT: Atraumatic, Mucous membr. moist/pink, Other (mild elevation of JVP) Lungs: Other (clear anteriorly) Heart: Normal S1, Normal S2, Other (no gallops, clicks or rubs) Abdomen: Normal bowel sounds, Soft, No tenderness Extremities: No edema Neuro: Other (sedated) Psych/Mental Status: Other (sedated) VITALS Vital Signs Date Time Temp Pulse Resp B/P (MAP) Pulse Ox O2 Delivery O2 Flow Rate FiO2 07/02/18 09:27 100 Nasal Cannula 2.0 07/02/18 09:00 84 19 133/58 (83) 07/02/18 06:00 97.6 Labs Laboratory Tests Test 07/01/18 14:15 07/01/18 14:35 07/02/18 05:34 Nasal Screen MRSA (PCR) Negative (Negative) White Blood Count 7.0 x10^3/uL (4.0-11.0) Red Blood Count 4.62 x10^6/uL (3.50-5.40) Hemoglobin 12.7 g/dL (12.0-15.5) Hematocrit 39.5 % (36.0-47.0) Mean Corpuscular Volume 86 fL (79-100) Mean Corpuscular Hemoglobin 28 pg (25-35) Mean Corpuscular Hemoglobin Concent 32 g/dL (31-37) Red Cell Distribution Width 15.1 % (11.5-14.5) Platelet Count 252 x10^3/uL (140-400) Neutrophils (%) (Auto) 73 % (31-73) Lymphocytes (%) (Auto) 11 % (24-48) Monocytes (%) (Auto) 13 % (0-9) Eosinophils (%) (Auto) 2 % (0-3) Basophils (%) (Auto) 1 % (0-3) Neutrophils # (Auto) 5.2 x10^3uL (1.8-7.7) Lymphocytes # (Auto) 0.8 x10^3/uL (1.0-4.8) Monocytes # (Auto) 0.9 x10^3/uL (0.0-1.1) Eosinophils # (Auto) 0.1 x10^3/uL (0.0-0.7) Basophils # (Auto) 0.0 x10^3/uL (0.0-0.2) Sodium Level 143 mmol/L (136-145) 142 mmol/L (136-145) Potassium Level 3.5 mmol/L (3.5-5.1) 3.6 mmol/L (3.5-5.1) Chloride Level 103 mmol/L (98-107) 102 mmol/L (98-107) Carbon Dioxide Level 34 mmol/L (21-32) 32 mmol/L (21-32) Anion Gap 6 (6-14) 8 (6-14) Blood Urea Nitrogen 17 mg/dL (7-20) 19 mg/dL (7-20) Creatinine 0.8 mg/dL (0.6-1.0) 1.2 mg/dL (0.6-1.0) Estimated GFR (Cockcroft-Gault) 67.8 42.5 BUN/Creatinine Ratio 21 (6-20) Glucose Level 95 mg/dL (70-99) 90 mg/dL (70-99) Calcium Level 8.8 mg/dL (8.5-10.1) 8.8 mg/dL (8.5-10.1) Total Bilirubin 0.4 mg/dL (0.2-1.0) Aspartate Amino Transf (AST/SGOT) 23 U/L (15-37) Alanine Aminotransferase (ALT/SGPT) 24 U/L (14-59) Alkaline Phosphatase 67 U/L (46-116) MA-Ryn-N-Type Natriuretic Peptide 325 pg/mL (0-449) Total Protein 7.2 g/dL (6.4-8.2) Albumin 3.3 g/dL (3.4-5.0) Albumin/Globulin Ratio 0.8 (1.0-1.7) Magnesium Level 2.2 mg/dL (1.8-2.4) Images CXR - Impression: Mild increase in right pleural effusion. No significant change in left basilar effusion. Mild congestive heart failure. CT Head - IMPRESSION: 1. No acute intracranial bleed. 2. Left frontal lobe mass lesion most likely intra-axial. This is most likely an incidental finding. MRI of the brain without and with IV contrast is recommended. 3. Mild white matter changes most likely secondary to chronic microvascular ischemic disease. 3. Pansinusitis. Assessment/Plan 1. acute on chronic diastolic heart failure - Sao2 maintaining with 2 liters nc oxygen. echo. continue IV lasix. Request records. Repeat CXR in am. Monitor Cr as mild increase since lasix yesterday. 2. decreased mental status - likely secondary to sedation with Haldol. 3. Hypertension - blood pressure low normal, monitor on home meds 4. pansinusitis - per pcp 5. dementia - per psych RAOUL BOLANOS ANALYTICAL LAB TECHNICIAN Jul 02, 2018 10:00
[2018-07-02] MEDS: FUROSEMIDE 40 MG/4 ML VIAL IVP SCH (10:19)
[2018-07-02] MEDS: IV NORMAL SALINE 1,000ML 1,000 ML IV SCH ×2 (11:24→23:09)
--- NOTE | 2018-07-02 11:47 | RAD ---
PQRS Compliance statement: One or more of the following individualized dose reduction techniques were utilized for this examination: 1. Automated exposure control. 2. Adjustment of the mA and/or kV according to patient size. 3. Use of iterative reconstruction technique. Indication:AMS TECHNIQUE: CT head without IV contrast COMPARISON:None FINDINGS: No pathologic extra-axial or intra-axial fluid collection. No acute intracranial bleed. The ventricles and basal cisterns are within normal limits. Mild periventricular and deep white matter low-attenuation is seen. There is a 1.5 x 1.1 cm lesion originating from the medial aspect of the left anterior frontal lobe abutting the falx cerebri with mild bilateral calcification. No midline shift. No focal loss of ferguson-white differentiation. Orbits are within normal limits. No suspicious calvarial lesion. Opacification of the ethmoid air cells, compatible show thickening of the bilateral sphenoid sinuses and maxillary sinus is seen. Bilateral mastoid vessels are clear. IMPRESSION: 1. No acute intracranial bleed. 2. Left frontal lobe mass lesion most likely intra-axial. This is most likely an incidental finding. MRI of the brain without and with IV contrast is recommended. 3. Mild white matter changes most likely secondary to chronic microvascular ischemic disease. 3. Pansinusitis. Electronically signed by: Felipe Sanchez DO (07/02/2018 11:44 AM) [id number]
[2018-07-02 12:58] LABS: BGAS PH 7.38 (7.35-7.45)
--- NOTE | 2018-07-02 17:24 | CARD ---
MR#: [id number] Date of Study: 07/02/2018 Ordering Physician: RAOUL BOLANOS, Referring Physician: MARLI TRAN, Tech: Marta Sanchez APPROVED REPORT EXAM: Two-dimensional and M-mode echocardiogram with Doppler and color Doppler. Other Information Quality : GoodHR: 81bpm INDICATION Congestive Heart Failure 2D DIMENSIONS RVDd2.3 (2.9-3.5cm)Left Atrium(2D)2.5 (1.6-4.0cm) IVSd0.8 (0.7-1.1cm)Aortic Root(2D)2.6 (2.0-3.7cm) LVDd4.1 (3.9-5.9cm)LVOT Diameter2.0 (1.8-2.4cm) PWd0.9 (0.7-1.1cm)LVDs2.6 (2.5-4.0cm) FS (%) 37.6 %SV52.0 ml LVEF(%)68.2 (>50%) Aortic Valve AoV Peak Laureano.153.9cm/sAoV VTI34.2cm AO Peak GR.9.5mmHgLVOT Peak Laureano.89.4cm/s LVOT VTI 21.00cmAO Mean GR.6mmHg DAREN (VMAX)1.30rq3XWE (VTI)2.00cm2 Mitral Valve MV E Anelvvrb12.7cm/sMV DECEL [id number] MV A Simahumc882.0cm/sE/A Ratio0.6 Pulmonary Valve PV Peak Nnqhlhpp40.3cm/sPV Peak Grad.2mmHg Tricuspid Valve TR P. Sifadssl863qw/sRAP [id number] TR Peak Gr.74ebNwSPDA42twPg LEFT VENTRICLE The left ventricle is normal size. There is normal left ventricular wall thickness. The left ventricu lar systolic function is normal. The Ejection Fraction is 60-65%. There is normal LV segmental wall m otion. Transmitral Doppler flow pattern is Grade I-abnormal relaxation pattern. RIGHT VENTRICLE The right ventricle is normal size. There is normal right ventricular wall thickness. The right ventr icular systolic function is normal. ATRIA The left atrium size is normal. The right atrium size is normal. The interatrial septum is intact wit h no evidence for an atrial septal defect or patent foramen ovale as noted on 2-D or Doppler imaging. AORTIC VALVE The aortic valve is thickened but opens well. Doppler and Color Flow revealed trace aortic regurgitat ion. There is no significant aortic valvular stenosis. MITRAL VALVE The mitral valve is thickened but opens well. Mitral annular calcification is mild to moderate. Doppl er and Color-flow revealed trace mitral regurgitation. TRICUSPID VALVE The tricuspid valve is normal in structure and function. Doppler and Color Flow revealed trace to mil d tricuspid regurgitation. There is no tricuspid valve stenosis. PULMONIC VALVE The pulmonic valve is not well visualized. Doppler and Color Flow revealed trace pulmonic valvular re gurgitation. GREAT VESSELS The aortic root is normal in size. The IVC was visualized and appears normal in size. PERICARDIAL EFFUSION There is moderate left pleural effusion. There is a trace pericardial effusion. Critical Notification Critical Value: No <Conclusion> The left ventricular systolic function is normal. The Ejection Fraction is 60-65%. There is normal LV segmental wall motion. Transmitral Doppler flow pattern is Grade I-abnormal relaxation pattern. Trace mitral regurgitation. Trace to mild tricuspid regurgitation. There is a trace pericardial effusion. Signed by : Rishi Grimes, Electronically Approved : 07/02/2018 17:23:29
--- NOTE | 2018-07-02 18:39 | PDOC ---
Exam Note: Dinesh Note: Please also refer to the separate dictated note~for this date of service dictated separately.~Patient seen individually. Discussed the patient with Nursing staff reviewed the chart.~Reviewed interim history and current functioning. Reviewed vital signs,~Labs/ Radiology~and current medications noted below. Continue current treatment with the changes noted in the dictated addendum note Assessment: Vital Signs: Vital Signs Date Time Temp Pulse Resp B/P (MAP) Pulse Ox O2 Delivery O2 Flow Rate FiO2 07/02/18 17:45 84 20 117/57 (77) 98 Nasal Cannula 2.0 07/02/18 15:43 97.5 I&O Intake and Output 07/02/18 07:00 Intake Total 360 ml Output Total 900 ml Balance -540 ml Intake Oral 360 ml Output Urine Total 900 ml # Voids 1 Labs: Laboratory Tests Test 07/02/18 05:34 07/02/18 12:33 07/02/18 12:37 07/02/18 12:47 Sodium Level 142 mmol/L (136-145) Potassium Level 3.6 mmol/L (3.5-5.1) Chloride Level 102 mmol/L (98-107) Carbon Dioxide Level 32 mmol/L (21-32) Anion Gap 8 (6-14) Blood Urea Nitrogen 19 mg/dL (7-20) Creatinine 1.2 mg/dL (0.6-1.0) H Estimated GFR (Cockcroft-Gault) 42.5 Glucose Level 90 mg/dL (70-99) Calcium Level 8.8 mg/dL (8.5-10.1) Magnesium Level 2.2 mg/dL (1.8-2.4) Glucose (Fingerstick) 92 mg/dL (70-99) Ammonia 12 mcmol/L (11-34) Blood pH 7.38 (7.35-7.45) Blood Gas PCO2 58 mmHg (35-45) H Blood Gas PO2 99 mmHg (71-100) Blood Gas HCO3 35 mmol/L (22-26) H Arterial Bld O2 Saturation (Calc) 97 % (92-99) FiO2 28 % Current Medications: Meds: Current Medications Albuterol Sulfate (Ventolin) 2.5 mg PRN Q6HRS PRN NEB SHORTNESS OF BREATH; Start 07/01/18 at 14:30 Vitamin D (Vitamin D3) 50,000 unit WEEKLY PO ; Start 07/08/18 at 09:00 Cyanocobalamin (Vitamin B-12) 1,000 mcg DAILY PO ; Start 07/02/18 at 09:00 Lactobacillus Rhamnosus (Culturelle) 1 cap BID PO Last administered on at 20:29; Start 07/01/18 at 21:00 Multi-Ingredient Ointment (Analgesic [place]) 1 hailee QIDPRN PRN TP MUSCLE PAIN; Start 07/01/18 at 14:30 Sertraline HCl (Zoloft) 100 mg DAILY PO ; Start 07/02/18 at 09:00; Stop at 10:51; Status DC Acetaminophen (Tylenol) 1,000 mg PRN TID PRN PO PAIN / TEMP; Start 07/01/18 at 14:45 Non-Formulary Medication (Albuterol Sulfate (Albuterol Sulfate Conc Neb Soln)) 1 vial 1000,2200 NEB ; Start 07/01/18 at 22:00; Status UNV Amlodipine Besylate (Norvasc) 5 mg DAILY PO ; Start 07/02/18 at 09:00 Benzonatate (Tessalon Perle) 100 mg [id number] PO Last administered on 07/01/18at 20:30; Start 07/01/18 at 21:00 Clotrimazole (Lotrimin) 1 hailee BID TP ; Start 07/01/18 at 21:00 Donepezil HCl (Aricept) 10 mg HS PO Last administered on 07/01/18at 20:29; Start 07/01/18 at 21:00 Ferrous Sulfate (Feosol) 325 mg Q48H PO ; Start 07/03/18 at 08:00 Folic Acid (Folic Acid) 1 mg DAILY PO ; Start 07/02/18 at 09:00 Levetiracetam (Keppra) 500 mg BID PO Last administered on 07/01/18at 20:29; Start 07/01/18 at 21:00 Al Hydroxide/Mg Hydroxide (Mylanta Plus Xs) 15 ml PRN QID PRN PO DYSPEPSIA; Start 07/01/18 at 15:00 Magnesium Hydroxide (Milk Of Magnesia) 2,400 mg PRN QHS PRN PO CONSTIPATION; Start 07/01/18 at 15:00 Melatonin 3 mg PRN QHS PRN PO INSOMNIA Last administered on 07/01/18at 20:30; Start 07/01/18 at 15:00 Pravastatin Sodium (Pravachol) 40 mg QHS PO Last administered on 07/01/18at 20: 30; Start 07/01/18 at 21:00 Sertraline HCl (Zoloft) 25 mg DAILY PO ; Start 07/02/18 at 09:00; Stop at 10:51; Status DC Furosemide (Lasix) 40 mg 1X ONCE IVP Last administered on 07/01/18at 15:21; Start 07/01/18 at 14:30; Stop 07/01/18 at 14:36; Status DC Furosemide (Lasix) 40 mg DAILY IVP Last administered on 07/02/18at 10:19; Start 07/02/18 at 09:00 Potassium Chloride (Klor-Con) 20 meq BID PO Last administered on 07/01/18at 20: 30; Start 07/01/18 at 21:00 Albuterol Sulfate (Ventolin) 2.5 mg Q12H NEB Last administered on 07/02/18at 09 :27; Start 07/01/18 at 22:00 Haloperidol (Haldol) 1 mg PRN Q4HRS PRN PO agitation; Start 07/01/18 at 18:45 ; Stop 07/02/18 at 10:51; Status DC Sodium Chloride 1,000 ml @ 75 mls/hr [id number] IV Last administered on at 11:24; Start 07/02/18 at 11:00 Active Scripts Active Reported Haloperidol 2 Mg Tablet 1 Tab PO 0900,1500 Analgesic [place] (Methyl Salicylate/Menthol) 28 Gm Oint...g. 1 Applic TP QIDPRN PRN Milk Of Magnesia (Magnesium Hydroxide) 2,400 Mg/10 Ml Oral.susp 2,400 Mg PO HS PRN Maalox Advanced Suspension (Mag Hydrox/Aluminum Hyd/Simeth) 355 Ml Oral.susp 15 Ml PO QID PRN Culturelle (Lactobacillus Rhamnosus Gg) 1 Each Cap.sprink 1 Each PO BID D3-50 (Cholecalciferol (Vitamin D3)) 50,000 Unit Capsule 1 Cap PO WEEKLY Tessalon Perle (Benzonatate) 100 Mg Capsule 1 Cap PO TID Albuterol Sulfate Conc Neb Soln (Albuterol Sulfate) 2.5 Mg/0.5 Ml Vial.neb 1 Vial NEB 1000,2200 Furosemide 20 Mg Tablet 20 Mg PO DAILYAC Haloperidol 2 Mg Tablet 2 Mg PO PRN Q6HRS PRN Zoloft (Sertraline Hcl) 25 Mg Tablet 25 Mg PO DAILY Zoloft (Sertraline Hcl) 100 Mg Tablet 100 Mg PO DAILY Pravastatin Sodium 40 Mg Tablet 40 Mg PO HS Meloxicam 7.5 Mg Tablet 7.5 Mg PO DAILYWBKFT Melatonin 3 Mg Tablet 3 Mg PO HS PRN Levetiracetam 500 Mg Tablet 500 Mg PO BID Folic Acid 1 Mg Tablet 1 Mg PO DAILY Ferrous Sulfate 324 Mg Tablet.dr 324 Mg PO Q48HRS Donepezil Hcl 5 Mg Tablet 10 Mg PO HS Vitamin B-12 (Cyanocobalamin (Vitamin B-12)) 1,000 Mcg Tablet 1,000 Mcg PO DAILY Clotrimazole 15 Gm Cream..g. 1 Hailee TP BID Amlodipine Besylate 5 Mg Tablet 5 Mg PO DAILY Albuterol Sulfate Neb Soln (Albuterol Sulfate) 2.5 Mg/3 Ml Vial.neb 3 Ml NEB PRN Q6HRS PRN Acetaminophen 500 Mg Tablet 1,000 Mg PO TID PRN I have reviewed the current psychotropics carefully including drug interactions. Risk benefit ratio favors no change other than as noted in my dictated progress note. Diagnosis: Problems: (1) Impulse control disorder (2) Dementia, vascular, with depression (3) Dementia, vascular, with delusions (4) Dementia in Alzheimer's disease with depression (5) Dementia in Alzheimer's disease with delusions (6) Anxiety disorder ANTWAN MUÑOZ MD Jul 02, 2018 18:39
[2018-07-02] MEDS: MELATONIN 3 MG TABLET PO PRN (20:49)
[2018-07-02] MEDS: PRAVASTATIN 20 MG TABLET. PO SCH (20:49)
[2018-07-02] MEDS: DONEPEZIL HCL 10 MG TABLET PO SCH (20:50)
--- NOTE | 2018-07-02 21:38 | PN ---
DATE: 07/02/2018 SUBJECTIVE: The patient is resting, slightly propped up in bed, in no apparent distress. She continued to be extremely lethargic. She has not eaten or drank anything yesterday after she came from the [facility]. She had apparently woke up and was very restless, agitated and today with mittens in her hand because she was pulling her tubes. She has not received any sedatives as she was on Haldol upstairs, so I cut down the dose, but according to the nursing staff, she has not received any of her Haldol. PHYSICAL EXAMINATION: GENERAL: When I examined her this morning, she was pale, but no jaundice, cyanosis, or thyromegaly. No jugular venous distention. No limb edema. VITAL SIGNS: Her heart rate was 82, blood pressure 131/49, temperature was 97.6, respiratory rate was 18 and oxygen saturation was 99% on 2 liters of oxygen. HEAD, EYES, EARS, NOSE AND THROAT: Showed normocephalic, atraumatic. NECK: Supple. HEART: Showed normal first and second heart sounds with no gallop, rub or murmur. CHEST: Clear to auscultation. No crepitation or rhonchi. ABDOMEN: Distended, soft, nontender. NEUROLOGIC: She is very lethargic, but arousable. She opens eyes and mouth somewhat, drifts back to sleep. All her cranial nerves are intact. She moves all extremities without difficulty, though she is mostly bedbound. Her intake over the last 24 hours was 360, output was 900. LABORATORY DATA: Her lab work this morning showed a white cell count 7000, hemoglobin 12.7, hematocrit 39, MCV 86 and platelet count 252,000 with normal manual differential. Her chemistry showed serum sodium of 142, potassium 3.6, chloride 102, bicarbonate 32, anion gap of 8, BUN 19, creatinine 1.2. Estimated GFR was 90. Her calcium was 8.8, magnesium was 2.2. Total bilirubin, AST, ALT, alkaline phosphatase were normal. Total protein was 7.2, albumin was 3.3. Her nasal screen for MRSA by PCR was negative. She apparently has had ultrasound showed that she has small right-sided pleural effusion. PLAN: As the patient continued to be very lethargic, I will cut back on any medication that might alter her mental status. I will arrange for her to have a CT scan of the head without contrast and if she continued to be unable to eat or drink, we will start her on IV fluids. MARLI TRAN MD DR: NICHOLAS/dee JOB#: [id number] / [id number]
[2018-07-03] VITALS (9 sets, daily range): BP systolic 112–147; BP diastolic 43–68
[2018-07-03 06:33] LABS: HEMATOCRIT 35.6 % (36.0-47.0); HEMOGLOBIN 11.5 g/dL (12.0-15.5); RED BLOOD COUNT 4.14 x10^6/uL (3.50-5.40); RED CELL DISTRIBUTION WIDTH 14.8 % (11.5-14.5); WHITE BLOOD COUNT 7.9 x10^3/uL (4.0-11.0)
[2018-07-03 06:42] LABS: CALCIUM 8.3 mg/dL (8.5-10.1); CREATININE 0.9 mg/dL (0.6-1.0); GFR 59.2; POTASSIUM 3.5 mmol/L (3.5-5.1)
[2018-07-03] MEDS ORDERED: FERROUS SULFATE 325 MG TABLET. PO SCH (08:00)
[2018-07-03] MEDS: LACTOBACILLUS RHAMNOSUS GG 1 CAPSULE. PO SCH (08:59)
[2018-07-03] MEDS: POTASSIUM CHLORIDE 20 MEQ TABLET.ER. PO SCH (08:59)
[2018-07-03] MEDS: CYANOCOBALAMIN (VITAMIN B-12) 1,000 MCG TABLET. PO SCH (09:00)
[2018-07-03] MEDS: BENZONATATE 100 MG CAPSULE. PO SCH (09:00)
[2018-07-03] MEDS: FOLIC ACID 1 MG TABLET PO SCH (09:00)
[2018-07-03] MEDS: levETIRAcetam 500 MG TABLET PO SCH (09:00)
[2018-07-03] MEDS: CLOTRIMAZOLE 1% TOPICAL CREAM 30GM TUBE. TP SCH (09:00)
[2018-07-03] MEDS: FUROSEMIDE 40 MG/4 ML VIAL IVP SCH (09:01)
[2018-07-03] MEDS: amLODIPine BESYLATE 5 MG TABLET PO SCH (09:01)
[2018-07-03] MEDS: ALBUTEROL SULFATE 2.5 MG/3 ML NEBU. NEB SCH (09:58)
[2018-07-03] MEDS ORDERED: DOXY100C2 PO (14:24)
--- NOTE | 2018-07-03 16:27 | PDOC ---
PROGRESS NOTES Assessment 1. acute on chronic diastolic heart failure - clinically compensated Maintaining mid 90s Sao2 maintaining on RA. echo pending Off IV diuretics. Being transferred back to psych today if appropriate. 2. decreased mental status - likely secondary to sedation with Haldol now awake and alert with baseline confusion secondary to dementia 3. Hypertension - blood pressure controlled on home medications. 4. pansinusitis - per pcp 5. dementia - per psyc Subjective confused, pulling at monitoring equipment and stats "Im not happy" no response to questions about chest pain or dyspnea. Objective Vital Signs Date Time Temp Pulse Resp B/P (MAP) Pulse Ox O2 Delivery O2 Flow Rate FiO2 07/03/18 12:31 88 22 144/56 (85) 94 Room Air 07/03/18 09:38 1.5 07/03/18 05:42 98.5 Intake and Output 07/03/18 07:00 Intake Total 1680 ml Output Total 785 ml Balance 895 ml Intake Oral 680 ml IV Total 1000 ml Output Urine Total 785 ml # Bowel Movements 2 Abdomen: Normal bowel sounds, Soft Heart: Normal S1, Normal S2, Other (no gallops) General: Alert, No acute distress Lungs: Other (decreased left base otherwise clear but poor inspiratory effort) Neuro: Normal speech Psych/Mental Status: Mood NL, Other (confused) Review of Relevant I have reviewed the following items raquel (where applicable) has been applied. Labs Laboratory Tests Test 07/02/18 05:34 07/02/18 12:33 07/02/18 12:37 07/02/18 12:47 Sodium Level 142 mmol/L (136-145) Potassium Level 3.6 mmol/L (3.5-5.1) Chloride Level 102 mmol/L (98-107) Carbon Dioxide Level 32 mmol/L (21-32) Anion Gap 8 (6-14) Blood Urea Nitrogen 19 mg/dL (7-20) Creatinine 1.2 mg/dL (0.6-1.0) Estimated GFR (Cockcroft-Gault) 42.5 Glucose Level 90 mg/dL (70-99) Calcium Level 8.8 mg/dL (8.5-10.1) Magnesium Level 2.2 mg/dL (1.8-2.4) Glucose (Fingerstick) 92 mg/dL (70-99) Ammonia 12 mcmol/L (11-34) Blood Gas pH 7.38 (7.35-7.45) Blood Gas PCO2 58 mmHg (35-45) Blood Gas PO2 99 mmHg (71-100) Blood Gas HCO3 35 mmol/L (22-26) Arterial Bld O2 Saturation (Calc) 97 % (92-99) FiO2 28 % Test 07/03/18 05:39 White Blood Count 7.9 x10^3/uL (4.0-11.0) Red Blood Count 4.14 x10^6/uL (3.50-5.40) Hemoglobin 11.5 g/dL (12.0-15.5) Hematocrit 35.6 % (36.0-47.0) Mean Corpuscular Volume 86 fL (79-100) Mean Corpuscular Hemoglobin 28 pg (25-35) Mean Corpuscular Hemoglobin Concent 32 g/dL (31-37) Red Cell Distribution Width 14.8 % (11.5-14.5) Platelet Count 223 x10^3/uL (140-400) Sodium Level 143 mmol/L (136-145) Potassium Level 3.5 mmol/L (3.5-5.1) Chloride Level 105 mmol/L (98-107) Carbon Dioxide Level 32 mmol/L (21-32) Anion Gap 6 (6-14) Blood Urea Nitrogen 25 mg/dL (7-20) Creatinine 0.9 mg/dL (0.6-1.0) Estimated GFR (Cockcroft-Gault) 59.2 Glucose Level 98 mg/dL (70-99) Calcium Level 8.3 mg/dL (8.5-10.1) Medications Current Medications Albuterol Sulfate (Ventolin) 2.5 mg PRN Q6HRS PRN NEB SHORTNESS OF BREATH; Start 07/01/18 at 14:30; Stop 07/03/18 at 15:09; Status DC Vitamin D (Vitamin D3) 50,000 unit WEEKLY PO ; Start 07/08/18 at 09:00; Stop 07/08/18 at 09:00; Status DC Cyanocobalamin (Vitamin B-12) 1,000 mcg DAILY PO Last administered on at 09:00; Start 07/02/18 at 09:00; Stop 07/03/18 at 15:09; Status DC Lactobacillus Rhamnosus (Culturelle) 1 cap BID PO Last administered on at 08:59; Start 07/01/18 at 21:00; Stop 07/03/18 at 15:09; Status DC Multi-Ingredient Ointment (Analgesic Economy) 1 hailee QIDPRN PRN TP MUSCLE PAIN; Start 07/01/18 at 14:30; Stop 07/03/18 at 15:09; Status DC Sertraline HCl (Zoloft) 100 mg DAILY PO ; Start 07/02/18 at 09:00; Stop at 10:51; Status DC Acetaminophen (Tylenol) 1,000 mg PRN TID PRN PO PAIN / TEMP; Start 07/01/18 at 14:45; Stop 07/03/18 at 15:09; Status DC Non-Formulary Medication (Albuterol Sulfate (Albuterol Sulfate Conc Neb Soln)) 1 vial 1000,2200 NEB ; Start 07/01/18 at 22:00; Status UNV Amlodipine Besylate (Norvasc) 5 mg DAILY PO Last administered on 07/03/18at 09: 01; Start 07/02/18 at 09:00; Stop 07/03/18 at 15:09; Status DC Benzonatate (Tessalon Perle) 100 mg [id number] PO Last administered on 07/03/18at 09:00; Start 07/01/18 at 21:00; Stop 07/03/18 at 15:09; Status DC Clotrimazole (Lotrimin) 1 ahilee BID TP ; Start 07/01/18 at 21:00; Stop 07/03/18 at 15:09; Status DC Donepezil HCl (Aricept) 10 mg HS PO Last administered on 07/02/18at 20:50; Start 07/01/18 at 21:00; Stop 07/03/18 at 15:09; Status DC Ferrous Sulfate (Feosol) 325 mg Q48H PO Last administered on 07/03/18at 09:00; Start 07/03/18 at 08:00; Stop 07/03/18 at 15:09; Status DC Folic Acid (Folic Acid) 1 mg DAILY PO Last administered on 07/03/18at 09:00; Start 07/02/18 at 09:00; Stop 07/03/18 at 15:09; Status DC Levetiracetam (Keppra) 500 mg BID PO Last administered on 07/03/18at 09:00; Start 07/01/18 at 21:00; Stop 07/03/18 at 15:09; Status DC Al Hydroxide/Mg Hydroxide (Mylanta Plus Xs) 15 ml PRN QID PRN PO DYSPEPSIA; Start 07/01/18 at 15:00; Stop 07/03/18 at 15:09; Status DC Magnesium Hydroxide (Milk Of Magnesia) 2,400 mg PRN QHS PRN PO CONSTIPATION; Start 07/01/18 at 15:00; Stop 07/03/18 at 15:09; Status DC Melatonin 3 mg PRN QHS PRN PO INSOMNIA Last administered on 07/02/18at 20:49; Start 07/01/18 at 15:00; Stop 07/03/18 at 15:09; Status DC Pravastatin Sodium (Pravachol) 40 mg QHS PO Last administered on 07/02/18at 20: 49; Start 07/01/18 at 21:00; Stop 07/03/18 at 15:09; Status DC Sertraline HCl (Zoloft) 25 mg DAILY PO ; Start 07/02/18 at 09:00; Stop at 10:51; Status DC Furosemide (Lasix) 40 mg 1X ONCE IVP Last administered on 07/01/18at 15:21; Start 07/01/18 at 14:30; Stop 07/01/18 at 14:36; Status DC Furosemide (Lasix) 40 mg DAILY IVP Last administered on 07/03/18at 09:01; Start 07/02/18 at 09:00; Stop 07/03/18 at 11:30; Status DC Potassium Chloride (Klor-Con) 20 meq BID PO Last administered on 07/03/18at 08: 59; Start 07/01/18 at 21:00; Stop 07/03/18 at 15:09; Status DC Albuterol Sulfate (Ventolin) 2.5 mg Q12H NEB Last administered on 07/03/18at 09 :58; Start 07/01/18 at 22:00; Stop 07/03/18 at 15:09; Status DC Haloperidol (Haldol) 1 mg PRN Q4HRS PRN PO agitation; Start 07/01/18 at 18:45 ; Stop 07/02/18 at 10:51; Status DC Sodium Chloride 1,000 ml @ 75 mls/hr [id number] IV Last administered on at 23:09; Start 07/02/18 at 11:00; Stop 07/03/18 at 11:30; Status DC Doxycycline Hyclate (Vibra-Tab) 100 mg BID PO ; Start 07/03/18 at 21:00; Stop 07/03/18 at 21:00; Status DC Active Scripts Active Reported Doxycycline Hyclate 100 Mg Capsule 1 Cap PO BID Analgesic Economy (Methyl Salicylate/Menthol) 28 Gm Oint...g. 1 Applic TP QIDPRN PRN Milk Of Magnesia (Magnesium Hydroxide) 2,400 Mg/10 Ml Oral.susp 2,400 Mg PO HS PRN Maalox Advanced Suspension (Mag Hydrox/Aluminum Hyd/Simeth) 355 Ml Oral.susp 15 Ml PO QID PRN Culturelle (Lactobacillus Rhamnosus Gg) 1 Each Cap.sprink 1 Each PO BID D3-50 (Cholecalciferol (Vitamin D3)) 50,000 Unit Capsule 1 Cap PO WEEKLY Tessalon Perle (Benzonatate) 100 Mg Capsule 1 Cap PO TID Albuterol Sulfate Conc Neb Soln (Albuterol Sulfate) 2.5 Mg/0.5 Ml Vial.neb 1 Vial NEB 1000,2200 Zoloft (Sertraline Hcl) 25 Mg Tablet 25 Mg PO DAILY Zoloft (Sertraline Hcl) 100 Mg Tablet 100 Mg PO DAILY Pravastatin Sodium 40 Mg Tablet 40 Mg PO HS Melatonin 3 Mg Tablet 3 Mg PO HS PRN Levetiracetam 500 Mg Tablet 500 Mg PO BID Folic Acid 1 Mg Tablet 1 Mg PO DAILY Ferrous Sulfate 324 Mg Tablet.dr 324 Mg PO Q48HRS Donepezil Hcl 5 Mg Tablet 10 Mg PO HS Vitamin B-12 (Cyanocobalamin (Vitamin B-12)) 1,000 Mcg Tablet 1,000 Mcg PO DAILY Clotrimazole 15 Gm Cream..g. 1 Hailee TP BID Amlodipine Besylate 5 Mg Tablet 5 Mg PO DAILY Albuterol Sulfate Neb Soln (Albuterol Sulfate) 2.5 Mg/3 Ml Vial.neb 3 Ml NEB PRN Q6HRS PRN Acetaminophen 500 Mg Tablet 1,000 Mg PO TID PRN Vitals/I & O Vital Sign - Last 24 Hours 07/02/18 07/02/18 07/02/18 07/02/18 16:45 17:45 18:38 19:42 Temp 98.7 Pulse 80 84 83 83 Resp 20 20 24 29 B/P (MAP) 107/49 (68) 117/57 (77) 116/53 (74) 126/69 (88) Pulse Ox 99 98 100 96 O2 Delivery Nasal Cannula Nasal Cannula Nasal Cannula Nasal Cannula O2 Flow Rate 2.0 2.0 2.0 2.0 07/02/18 07/02/18 07/02/18 07/02/18 20:00 20:33 20:38 21:38 Pulse 91 88 Resp 29 29 B/P (MAP) 121/50 (73) 117/50 (72) Pulse Ox 98 96 99 O2 Delivery Nasal Cannula Nasal Cannula Nasal Cannula Nasal Cannula O2 Flow Rate 2.0 2.0 2.0 2.0 07/02/18 07/02/18 07/02/18 07/03/18 22:38 23:38 23:59 00:54 Pulse 87 82 81 Resp 30 27 24 B/P (MAP) 110/49 (69) 124/58 (80) 128/60 (82) Pulse Ox 94 95 100 O2 Delivery Nasal Cannula Nasal Cannula Nasal Cannula Nasal Cannula O2 Flow Rate 2.0 2.0 1.5 1.5 07/03/18 07/03/18 07/03/18 07/03/18 01:38 02:31 03:38 04:00 Pulse 82 75 86 Resp 27 20 23 B/P (MAP) 115/53 (73) 137/68 (91) Pulse Ox 100 100 100 O2 Delivery Nasal Cannula Nasal Cannula Nasal Cannula Nasal Cannula O2 Flow Rate 1.5 1.5 1.5 1.5 07/03/18 07/03/18 07/03/18 07/03/18 04:41 05:42 08:30 08:41 Temp 98.5 Pulse 77 81 86 Resp 28 19 24 B/P (MAP) 132/61 (84) 147/64 (91) 144/62 (89) Pulse Ox 99 99 95 O2 Delivery Nasal Cannula Nasal Cannula Room Air Room Air O2 Flow Rate 1.0 1.0 1107/03/18 07/03/18 07/03/18 09:01 09:38 09:59 10:58 Pulse 86 88 93 Resp 25 25 B/P (MAP) 144/62 144/58 (86) 112/43 (66) Pulse Ox 98 93 95 O2 Delivery Room Air Room Air Room Air O2 Flow Rate 1.5 07/03/18 07/03/18 07/03/18 11:36 12:31 12:31 Pulse 91 88 Resp 20 22 B/P (MAP) 144/56 (85) Pulse Ox 95 94 O2 Delivery Room Air Room Air Room Air Intake and Output 07/02/18 07/02/18 07/03/18 15:00 23:00 07:00 Intake Total 120 ml 951 ml 609 ml Output Total 550 ml 235 ml Balance 120 ml 401 ml 374 ml RAOUL BOLANOS [employer] MANAGER Jul 03, 2018 16:27
--- NOTE | 2018-07-03 18:49 | DS ---
DATE OF DISCHARGE: 07/03/2018 HOSPITAL COURSE: The patient is an 88-year-old female patient who was transferred from [facility] on account of altered mental status and [id number] diastolic congestive heart failure with large bilateral pleural effusion. We did treat her with IV Lasix and we attempted to do thoracentesis; however, the patient was extremely lethargic and cooperative, so radiologist decided not to go ahead with that. She was extremely lethargic due to probably Haldol; however, she did very well today. She was awake, alert, was able to walk with a walker. She managed to eat her food and was drinking without any difficulty and a decision was made to transfer her back to continue with the process of inpatient psychiatric stabilization. PHYSICAL EXAMINATION: GENERAL: When I saw her this morning, she looked well and was clearly in no apparent respiratory distress, pale, but no jaundice, cyanosis, or thyromegaly. No jugular venous distension. No lower limb edema. VITAL SIGNS: Her heart rate was 88, blood pressure was 144/56, temperature was 98.5, respiratory rate was 22, and oxygen saturation was 94%. HEENT: Examination of the head, eyes, ears, nose and throat showed normocephalic, atraumatic. NECK: Supple. HEART: Showed normal first and second heart sounds with no gallop, rub or murmur. CHEST: Clear to auscultation. No crepitation or rhonchi. ABDOMEN: Distended, soft, nontender. No guarding or rigidity. No organomegaly. Hernial orifices are intact and bowel sounds normal. NEUROLOGIC: She is demented, but without any obvious lateralizing signs. All her cranial nerves are intact. She moves extremities without difficulty. She ambulates with a walker. LABORATORY DATA: Her lab work this morning showed a white cell count 7900, hemoglobin 11.5, hematocrit 35, MCV 86, and platelet count of 223,000. His chemistry showed a serum sodium of 43, potassium 3.5, chloride 105, bicarbonate 32, anion gap of 6, BUN 25, creatinine 0.9, estimated GFR was 59 mL per minute. His glucose 98, calcium was 8.3. FINAL DISCHARGE DIAGNOSES: Seizure disorder for which she is on Keppra, Alzheimer's disease that she has been extremely combative, restless, agitated. Other medical problems are emphysema and bronchiectasis, hypertension, hyperlipidemia, [id number] diastolic congestive heart failure. MARLI TRAN MD DR: NICHOLAS/dee JOB#: [id number] / [id number]
[2018-07-03] MEDS ORDERED: DOXYCYCLINE HYCLATE 100 MG TABLET PO SCH (21:00)
--- NOTE | 2018-07-03 21:12 | PN ---
DATE: 07/02/2018 PSYCHIATRIC CONSULTATION/PROGRESS NOTE This late entry 07/02/2018 covers elements not covered in my initial note. SUBJECTIVE: I met with the patient in ICU bed 2. I have been asked to consult to follow the patient while in ICU for her CHF and to monitor her psychotropics for dementia, delusion, behavioral disturbance. The patient was on the [facility], developed CHF, was transferred to the ICU. Since coming to the ICU, her Haldol 2 mg twice a day has been discontinued. She remains confused, intermittently psychotic, hallucinating. REVIEW OF SYSTEMS: Ambulation impaired. No CV, , pulmonary, eye, ENT system symptoms on review. Reliability poor. MENTAL STATUS EXAM: Oriented to herself. Insight, judgment, recent and remote memory, attention, concentration, fund of knowledge poor, consistent with her diagnosis. IMPRESSION: Major neurocognitive disorder, Alzheimer, vascular with delusion, depression, behavioral disturbance; anxiety disorder, unspecified; impulse control disorder, unspecified. Rest unchanged from initial note. PLAN: No change from initial note. We will keep her off the Haldol for now. When she is medically stable, we may have to readmit her to [facility] and determine psychotropics at that point. ANTWAN MUÑOZ MD DR: ALBARO/dee JOB#: [id number] / [id number]
--- NOTE | 2018-07-03 23:21 | PN ---
DATE: 07/03/2018 SUBJECTIVE: The patient is sitting comfortably in her chair, definitely more awake, alert, and confused obviously. She apparently has eaten all breakfast, drinking and eating well, and not display any aggressive behavior. She was not combative. Her kidney function has returned back to normal, with creatinine of 0.9. PHYSICAL EXAMINATION: GENERAL: When I examined her, she was pale, somewhat cachectic, but no jaundice, cyanosis, or thyromegaly. No jugular venous distension. No limb edema. VITAL SIGNS: Her heart rate was 93, blood pressure was 112/43, temperature was 98, respiratory rate 25, and oxygen saturation was 95% on room air. HEAD, EYES, EARS, NOSE AND THROAT: Showed normocephalic, atraumatic. NECK: Supple. HEART: Showed normal first and second heart sounds with no gallop, rub or murmur. CHEST: Clear to auscultation. No crepitation or rhonchi. ABDOMEN: Distended, soft, nontender. No guarding or rigidity. No organomegaly. Hernial orifice intact. Bowel sounds normal. NEUROLOGIC: She is definitely more awake, alert, although she is confused. All her cranial nerves intact. She moves extremities without difficulty. Her intake over the last 24 hours was 360, output was 900. LABORATORY DATA: This morning showed a white cell count 7900, hemoglobin 11.5, hematocrit 36, MCV 86 and platelet count 223,000. Her chemistry showed a serum sodium 143, potassium 3.5, chloride 105, bicarbonate 32, anion gap of 6, BUN 25, creatinine 0.9, estimated GFR was 59 mL per minute. Her glucose was 98, calcium was 8.3. Ammonia was only 12. She has had an echocardiogram done, which showed that her left ventricular systolic function is normal, ejection fraction of 60%-65% with normal left ventricular segmental wall motion. There is a transmitral Doppler flow pattern, with grade 1 abnormal relaxation pattern, trace mitral regurgitation, trace to mild tricuspid regurgitation. There is trace pericardial effusion. ASSESSMENT: Altered mental status, has dramatically improved. The patient is now awake, alert, although continued to be confused. She has an acute on chronic diastolic heart failure. She is actually improved on IV Lasix. Hypertension, seems to be well controlled; pansinusitis and dementia. PLAN: My plan is to start her on Augmentin for her pansinusitis ____. We will discuss to see whether she needs to go [facility] to continue inpatient psychiatric stabilization. MARLI TRAN MD DR: NICHOLAS/dee JOB#: [id number] / [id number]
[2018-07-08] MEDS ORDERED: CHOLECALCIFEROL (VITAMIN D3) 50,000 UNIT CAPSULE PO SCH (09:00)
== END 2018-07-03 15:08 | DRG 291 ==
LOC: ICU 14:11
PROVIDERS: ADMIT Internal Medicine; ATTEND Internal Medicine
DX: I11.0 Hypertensive heart disease with heart failure (principal); N17.0 Acute kidney failure with tubular necrosis; F01.51 Vascular dementia, unspecified severity, with behavioral disturbance; F02.81 Dementia in other diseases classified elsewhere, unspecified severity, with behavioral disturbance; G30.9 Alzheimer's disease, unspecified; I50.33 Acute on chronic diastolic (congestive) heart failure; E78.5 Hyperlipidemia, unspecified; F32.9 Major depressive disorder, single episode, unspecified; F41.9 Anxiety disorder, unspecified; G40.909 Epilepsy, unspecified, not intractable, without status epilepticus; F63.9 Impulse disorder, unspecified; I27.20 Pulmonary hypertension, unspecified; J32.4 Chronic pansinusitis; J43.9 Emphysema, unspecified; J47.9 Bronchiectasis, uncomplicated; M81.0 Age-related osteoporosis without current pathological fracture; Z79.899 Other long term (current) drug therapy
CPT/HCPCS: 36415; 70450; 80048; 80053; 82140; 82803; 82947; 83735; 83880; 85025; 85027; 87641; 93306; 94640; J1940; J7613; J7030

== ENCOUNTER 2018-07-03 15:25 | Inpatient (IN) | payer MEDICARE ==
[~2018-07-03] VITALS: Ht 154.9 cm; Wt 49.0 kg
[2018-07-03 15:15] VITALS: BP 134/74
[~2018-07-03 15:25] MED LIST changes: +DOXY100C2 PO
[2018-07-03] MEDS ORDERED: MAG HYDROX/AL HYDROX/SIMETH 30 ML ORAL.SUSP PO PRN (16:00)
[2018-07-03] MEDS ORDERED: MAGNESIUM HYDROXIDE 2,400 MG/30 ML ORAL.SUSP. PO PRN (16:00)
[2018-07-03] MEDS ORDERED: ACETAMINOPHEN 325 MG TABLET PO PRN (16:00)
[2018-07-03] MEDS ORDERED: METHYL SALICYLATE/MENTHOL TOPICAL OINTMENT 29GM TUBE. TP PRN ×2 (16:00→16:45)
[2018-07-03] MEDS ORDERED: ALBUTEROL SULFATE 2.5 MG/3 ML NEBU. NEB PRN (16:45)
[2018-07-03] MEDS ORDERED: NON FORMULARY ITEM (Mag Hydrox/Aluminum Hyd/Simeth (Maalox Advanced Suspension) 15 ML) PO PRN (16:45)
[2018-07-03] MEDS ORDERED: NON FORMULARY ITEM (Magnesium Hydroxide (Milk Of Magnesia) 2,400 MG) PO PRN (16:45)
[2018-07-03] MEDS: ALBUTEROL SULFATE 2.5 MG/3 ML NEBU. NEB SCH (20:06)
[2018-07-03] MEDS: LACTOBACILLUS RHAMNOSUS GG 1 CAPSULE. PO SCH (20:45)
[2018-07-03] MEDS: DOXYCYCLINE HYCLATE 100 MG TABLET PO SCH (20:46)
[2018-07-03] MEDS: PRAVASTATIN 20 MG TABLET. PO SCH (20:46)
[2018-07-03] MEDS: BENZONATATE 100 MG CAPSULE. PO SCH (20:46)
[2018-07-03] MEDS: DONEPEZIL HCL 10 MG TABLET PO SCH (20:46)
[2018-07-03] MEDS: levETIRAcetam 500 MG TABLET PO SCH (20:46)
[2018-07-03] MEDS: CLOTRIMAZOLE 1% TOPICAL CREAM 30GM TUBE. TP SCH (21:00)
[2018-07-03] MEDS ORDERED: NON FORMULARY ITEM (Albuterol Sulfate (Albuterol Sulfate Conc Neb Soln) 1 VIAL) NEB SCH (22:00)
--- NOTE | 2018-07-03 22:49 | PDOC ---
Exam Note: Dinesh Note: Please also refer to the separate dictated note~for this date of service dictated separately. Discussed the patient with Nursing staff reviewed the chart.~Reviewed interim history and current functioning. Reviewed vital signs,~ Labs/ Radiology~and current medications noted below. Continue current treatment with the changes noted in the dictated addendum note Assessment: Vital Signs: Vital Signs Date Time Temp Pulse Resp B/P (MAP) Pulse Ox O2 Delivery O2 Flow Rate FiO2 07/03/18 20:01 95 Room Air 07/03/18 15:15 98.7 55 18 134/74 (94) Current Medications: Meds: Current Medications Acetaminophen (Tylenol) 650 mg PRN Q6HRS PRN PO PAIN / TEMP; Start 07/03/18 at 16:00; Status Cancel Multi-Ingredient Ointment (Analgesic [place]) 1 hailee PRN QID PRN TP MUSCLE PAIN; Start 07/03/18 at 16:00 Al Hydroxide/Mg Hydroxide (Mylanta Plus Xs) 15 ml PRN AFTMEALHC PRN PO DYSPEPSIA; Start 07/03/18 at 16:00 Magnesium Hydroxide (Milk Of Magnesia) 2,400 mg PRN QHS PRN PO CONSTIPATION; Start 07/03/18 at 16:00 Albuterol Sulfate (Ventolin) 2.5 mg PRN Q6HRS PRN NEB SHORTNESS OF BREATH; Start 07/03/18 at 16:45 Vitamin D (Vitamin D3) 50,000 unit WEEKLY PO ; Start 07/10/18 at 09:00 Cyanocobalamin (Vitamin B-12) 1,000 mcg DAILY PO ; Start 07/04/18 at 09:00 Lactobacillus Rhamnosus (Culturelle) 1 cap BID PO Last administered on at 20:45; Start 07/03/18 at 21:00 Multi-Ingredient Ointment (Analgesic [place]) 1 hailee QIDPRN PRN TP MUSCLE PAIN; Start 07/03/18 at 16:45; Stop 07/03/18 at 16:54; Status DC Sertraline HCl (Zoloft) 100 mg DAILY PO ; Start 07/04/18 at 09:00 Acetaminophen (Tylenol) 1,000 mg PRN TID PRN PO PAIN / TEMP; Start 07/03/18 at 17:00 Non-Formulary Medication (Albuterol Sulfate (Albuterol Sulfate Conc Neb Soln)) 1 vial 1000,2200 NEB ; Start 07/03/18 at 22:00; Stop 07/03/18 at 22:00; Status DC Amlodipine Besylate (Norvasc) 5 mg DAILY PO ; Start 07/04/18 at 09:00 Benzonatate (Tessalon Perle) 100 mg [id number] PO Last administered on 07/03/18at 20:46; Start 07/03/18 at 21:00 Clotrimazole (Lotrimin) 1 hailee BID TP ; Start 07/03/18 at 21:00 Donepezil HCl (Aricept) 10 mg QHS PO Last administered on 07/03/18at 20:46; Start 07/03/18 at 21:00 Doxycycline Hyclate (Vibra-Tab) 100 mg BID PO Last administered on 07/03/18at 20:46; Start 07/03/18 at 21:00 Ferrous Sulfate (Feosol) 325 mg Q48H PO ; Start 07/04/18 at 08:00 Folic Acid (Folic Acid) 1 mg DAILY PO ; Start 07/04/18 at 09:00 Levetiracetam (Keppra) 500 mg BID PO Last administered on 07/03/18at 20:46; Start 07/03/18 at 21:00 Non-Formulary Medication (Mag Hydrox/ Aluminum Hyd/ Simeth (Maalox Advanced Suspension)) 15 ml QID PRN PO DYSPEPSIA; Start 07/03/18 at 16:45; Stop at 16:58; Status DC Non-Formulary Medication (Magnesium Hydroxide (Milk Of Magnesia)) 2,400 mg HS PRN PO CONSTIPATION; Start 07/03/18 at 16:45; Stop 07/03/18 at 16:58; Status DC Melatonin 3 mg PRN QHS PRN PO INSOMNIA; Start 07/03/18 at 17:00 Pravastatin Sodium (Pravachol) 40 mg QHS PO Last administered on 07/03/18at 20: 46; Start 07/03/18 at 21:00 Sertraline HCl (Zoloft) 25 mg DAILY PO ; Start 07/04/18 at 09:00 Albuterol Sulfate (Ventolin) 2.5 mg BID@1000,2200 NEB Last administered on at 20:06; Start 07/03/18 at 22:00 Haloperidol (Haldol) 0.5 mg DAILY PO ; Start 07/04/18 at 09:00 Haloperidol (Haldol) 0.5 mg PRN QEVNG PRN PO PSYCHOSIS; Start 07/03/18 at 19: 00 Active Scripts Active Reported Doxycycline Hyclate 100 Mg Capsule 1 Cap PO BID Analgesic [place] (Methyl Salicylate/Menthol) 28 Gm Oint...g. 1 Applic TP QIDPRN PRN Milk Of Magnesia (Magnesium Hydroxide) 2,400 Mg/10 Ml Oral.susp 2,400 Mg PO HS PRN Maalox Advanced Suspension (Mag Hydrox/Aluminum Hyd/Simeth) 355 Ml Oral.susp 15 Ml PO QID PRN Culturelle (Lactobacillus Rhamnosus Gg) 1 Each Cap.sprink 1 Each PO BID D3-50 (Cholecalciferol (Vitamin D3)) 50,000 Unit Capsule 1 Cap PO WEEKLY Tessalon Perle (Benzonatate) 100 Mg Capsule 1 Cap PO TID Albuterol Sulfate Conc Neb Soln (Albuterol Sulfate) 2.5 Mg/0.5 Ml Vial.neb 1 Vial NEB 1000,2200 Zoloft (Sertraline Hcl) 25 Mg Tablet 25 Mg PO DAILY Zoloft (Sertraline Hcl) 100 Mg Tablet 100 Mg PO DAILY Pravastatin Sodium 40 Mg Tablet 40 Mg PO HS Melatonin 3 Mg Tablet 3 Mg PO HS PRN Levetiracetam 500 Mg Tablet 500 Mg PO BID Folic Acid 1 Mg Tablet 1 Mg PO DAILY Ferrous Sulfate 324 Mg Tablet.dr 324 Mg PO Q48HRS Donepezil Hcl 5 Mg Tablet 10 Mg PO HS Vitamin B-12 (Cyanocobalamin (Vitamin B-12)) 1,000 Mcg Tablet 1,000 Mcg PO DAILY Clotrimazole 15 Gm Cream..g. 1 Hailee TP BID Amlodipine Besylate 5 Mg Tablet 5 Mg PO DAILY Albuterol Sulfate Neb Soln (Albuterol Sulfate) 2.5 Mg/3 Ml Vial.neb 3 Ml NEB PRN Q6HRS PRN Acetaminophen 500 Mg Tablet 1,000 Mg PO TID PRN I have reviewed the current psychotropics carefully including drug interactions. Risk benefit ratio favors no change other than as noted in my dictated progress note. Diagnosis: Problems: (1) Bilateral pleural effusion (2) Chronic diastolic CHF (congestive heart failure) (3) Anxiety disorder (4) Dementia in Alzheimer's disease with delusions (5) Dementia in Alzheimer's disease with depression (6) Dementia, vascular, with delusions (7) Dementia, vascular, with depression (8) Impulse control disorder ANTWAN MUÑOZ MD Jul 03, 2018 22:49
--- NOTE | 2018-07-04 05:19 | PN ---
DATE: 07/03/2018 SUBJECTIVE: The patient unable to provide any information; however, she denies any medical or neurological complaints. OBJECTIVE: GENERAL: Well-developed, well-nourished female, not in acute distress. VITAL SIGNS: Stable, blood pressure 134/74, respiratory rate 18, pulse is 55, temperature 98.7, oxygen saturation 98% on room air. HEENT: Normocephalic, atraumatic, otherwise unremarkable. NECK: Supple. Negative for carotid bruit, lymphadenopathy or thyromegaly. LUNGS: Clear to A and P with diminished breath sounds in the bases. CARDIOVASCULAR: Regular rhythm, normal S1, S2. ABDOMEN: Soft. Bowel sounds positive. EXTREMITIES: Negative for cyanosis, clubbing or pitting edema. NEUROLOGIC: Mental status: The patient is alert to herself. She is disoriented to time and place. Speech is fluent. Judgment, language, memory and abstract thinking are fair consistent with underlying dementia of Alzheimer type. Cranial nerves are grossly intact. No focal motor or sensory deficit. The strength was 4/5 throughout. Sensory examination revealed normal pinprick and light touch senses throughout. Deep tendon reflexes were symmetric and hypoactive with absent Achilles responses. Gait is not tested. IMPRESSION: 1. Acute encephalopathy, probably due to underlying medication side effects include Haldol. 2. History of seizure disorder . 3. 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 4. Dementia of Alzheimer type with behavior disturbances. 5. Multiple medical problems include hypertension, hyperlipidemia, chronic congestive heart failure. RECOMMENDATIONS: Would continue with current management, initiated by Dr. Barahona and continue with current psychiatric care initiated by Dr. العراقي. The patient is neurologically stable; however, and to get further the mass in the left frontal lobe, brain MRI is recommended. M Dejan FREEDMAN MD DR: ARA/dee JOB#: [id number] / [id number]
[2018-07-04 06:06] VITALS: BP 130/79
[2018-07-04] MEDS: levETIRAcetam 500 MG TABLET PO SCH ×2 (07:52→19:24)
[2018-07-04] MEDS: LACTOBACILLUS RHAMNOSUS GG 1 CAPSULE. PO SCH ×2 (07:52→19:24)
[2018-07-04] MEDS: BENZONATATE 100 MG CAPSULE. PO SCH ×3 (07:52→19:24)
[2018-07-04] MEDS: DOXYCYCLINE HYCLATE 100 MG TABLET PO SCH ×2 (07:53→19:24)
[2018-07-04] MEDS: SERTRALINE 25 MG TABLET. PO SCH (07:56)
[2018-07-04] MEDS: SERTRALINE 100 MG TABLET. PO SCH (08:00)
[2018-07-04] MEDS: FERROUS SULFATE 325 MG TABLET. PO SCH (08:00)
[2018-07-04] MEDS: FOLIC ACID 1 MG TABLET PO SCH (08:00)
[2018-07-04] MEDS: CYANOCOBALAMIN (VITAMIN B-12) 1,000 MCG TABLET. PO SCH (08:00)
[2018-07-04] MEDS: amLODIPine BESYLATE 5 MG TABLET PO SCH (08:01)
[2018-07-04] MEDS: HALOPERIDOL 0.5 MG TABLET PO SCH (08:01)
[2018-07-04] MEDS: CLOTRIMAZOLE 1% TOPICAL CREAM 30GM TUBE. TP SCH ×2 (08:02→19:34)
[2018-07-04 09:28] LABS: BASO % 1 % (0-3); EOS # 0.1 x10^3/uL (0.0-0.7); EOS % 1 % (0-3); HEMATOCRIT 39.4 % (36.0-47.0); HEMOGLOBIN 12.7 g/dL (12.0-15.5); LYMPH % 10 % (24-48); MEAN CORPUSCULAR HEMOGLOBIN 28 pg (25-35); MEAN CORPUSCULAR HGB CONC 32 g/dL (31-37); MEAN CORPUSCULAR VOLUME 86 fL (79-100); MONO # 0.7 x10^3/uL (0.0-1.1); MONO % 7 % (0-9); NEUT # 7.6 x10^3uL (1.8-7.7); NEUT % 80 % (31-73); PLATELET COUNT 284 x10^3/uL (140-400); RED BLOOD COUNT 4.58 x10^6/uL (3.50-5.40); RED CELL DISTRIBUTION WIDTH 14.7 % (11.5-14.5); WHITE BLOOD COUNT 9.5 x10^3/uL (4.0-11.0)
[2018-07-04 09:35] LABS: ALBUMIN 3.3 g/dL (3.4-5.0); ALBUMIN/GLOBULIN RATIO 0.8 (1.0-1.7); CALCIUM 8.9 mg/dL (8.5-10.1); CREATININE 0.9 mg/dL (0.6-1.0); GFR 59.2; POTASSIUM 3.2 mmol/L (3.5-5.1); TOTAL BILIRUBIN 0.4 mg/dL (0.2-1.0); TOTAL PROTEIN 7.5 g/dL (6.4-8.2)
[2018-07-04] MEDS: ALBUTEROL SULFATE 2.5 MG/3 ML NEBU. NEB SCH ×2 (11:20→20:38)
[2018-07-04 16:08] VITALS: BP 130/73
--- NOTE | 2018-07-04 16:28 | HP ---
ADMIT DATE: 07/03/2018 PSYCHIATRIC ADMISSION HISTORY/EVALUATION This late entry 07/03/2018 covers elements not covered in my initial note. IDENTIFYING DATA: The patient is an 88-year-old female, who was referred back to us from the ICU at [facility] where she was transferred, but she was on our [facility], being stabilized for her dementia with delusion, depression, behavioral disturbance. She developed an exacerbation of congestive heart failure, has been stabilized in the ICU, continues to be psychotic, agitated, labile in her mood. In the ICU, Haldol 2 mg b.i.d. had been discontinued and she is referred back for inpatient psychiatric stabilization. CHIEF COMPLAINT: "They are doing this to me." The patient was extremely confused, disorganized, paranoid, as I met with her, she followed me around the unit, quite angry, irritable and it is evident that she is doing poorly since Haldol was discontinued. HISTORY OF PRESENT ILLNESS: The patient has a history of dementia, Alzheimer's vascular type. The reader is referred to my prior psychiatric evaluation for details. She was referred initially to us on account of worsening confusion, agitation, and psychotic symptoms. No clear symptoms of bipolar disorder, suicidal or homicidal ideation. PAST PSYCHIATRIC HISTORY: As above. MEDICAL HISTORY: Seizure disorder, osteoporosis, congestive heart failure. PAST SURGICAL HISTORY: Status post right hip fracture repair. ACCU-CHEKS: None. ALLERGIES: PENICILLIN, MILK, RISPERDAL, LEVAQUIN. DIET: Regular. No milk products. No soy products. CURRENT PSYCHOTROPICS: Zoloft 125 mg a day, Aricept 10 mg at bedtime, melatonin 3 mg at bedtime; Haldol has been discontinued, but we will be restarting it at 0.5 mg a day, may repeat x 1 later in the day for psychotic symptoms. FAMILY HISTORY: Noncontributory. SOCIAL HISTORY: No alcohol, drug abuse, physical, sexual or elder abuse history is noted. MENTAL STATUS EXAMINATION: The patient was seen individually evening of 07/03/2018. She is oriented to herself, ambulates with a walker, quite paranoid, very confused. Insight, judgment, recent and remote memory, attention, concentration, fund of knowledge poor, consistent with her diagnosis mentioned in my initial note. IMPRESSION: Major neurocognitive disorder, Alzheimer, vascular with delusion, depression, behavioral disturbance; anxiety disorder, unspecified; impulse control disorder, unspecified; status post acute congestive heart failure, stabilization. Rest unchanged from initial note. PLAN: Continue current psychotropics. Restart Haldol 0.5 mg p.o. a.m., may repeat x 1 in the evening. I will see her daily individually from a psychiatric standpoint, medical followup with Dr. Barahona/Dr. Redding. Estimated length of stay is 7-9 days. DISCHARGE DISPOSITION: Plans to retirement. MAN Davide MUÑOZ MD DR: ALBARO/dee JOB#: [id number] / [id number]
[2018-07-04] MEDS: PRAVASTATIN 20 MG TABLET. PO SCH (19:24)
[2018-07-04] MEDS: DONEPEZIL HCL 10 MG TABLET PO SCH (19:24)
[2018-07-04] MEDS: POTASSIUM CHLORIDE 20 MEQ TABLET.ER. PO SCH (19:34)
--- NOTE | 2018-07-04 22:57 | CONS ---
DATE OF CONSULTATION: 07/04/2018 REASON FOR CONSULTATION: Medical management. HISTORY OF PRESENT ILLNESS: The patient is an 88-year-old female patient who was initially admitted to [facility] on account being with increased agitation, aggression, throwing food. She was angry, confused and reportedly has advanced dementia. Her behaviors were unmanageable and she had been removed from her prior placement consequent to her behavior and was living with her daughter. She was deemed a potential danger, had failed outpatient psychiatric intervention, was referred for inpatient psychiatric stabilization. However, when I saw her that day for evaluation, she was extremely lethargic. As going to her history, she was found to have severe pulmonary hypertension and known diastolic congestive heart failure and therefore we transferred her down to [address] [place] [address] ICU for altered mental status with excessive sedation, most likely due to Haldol; however, the possibility of carbon dioxide was also entertained, although subsequently her blood gases showed that she has compensated chronic hypercapnic respiratory failure. She does have bilateral pleural effusion confirmed by CT scan; however, we did consult the radiologist to drain the larger left-sided pleural effusion; however, the patient was extremely lethargic and cooperative, therefore we decided not to go ahead with the procedure. We did treat her with IV Lasix. We stopped all her sedatives and she did actually extremely well and her lab work has improved. Her level of consciousness improved. She was up and about, was able to eat and drink, was able to walk with a walker and she was obviously demented and therefore, a decision was made to transfer her back to [facility] for inpatient psychiatric stabilization. PAST MEDICAL HISTORY: Significant for seizure disorder for which she is on Keppra. She has Alzheimer's disease. She is also known to have emphysema and bronchiectasis, hypertension, hyperlipidemia, chronic diastolic congestive heart failure. She is known also to have pulmonary hypertension as well as pericardial effusion. PAST SURGICAL HISTORY: Significant for left hip fracture, status post open reduction and internal fixation. FAMILY HISTORY: Unremarkable. SOCIAL HISTORY: She apparently lives with her daughter. She does not smoke, drink alcohol, or use any recreational drugs. ALLERGIES: She is allergic to DAIRY PRODUCTS. She is also allergic to RISPERDAL, PENICILLIN as well as LEVOFLOXACIN, AND SOYBEAN. MEDICATIONS: She is currently on following medications: She is on doxycycline 100 mg twice a day as her CT scan showed that she has pansinusitis. Unfortunately, she is allergic to PENICILLIN and LEVOFLOXACIN. We started drug of choice. She is on Aricept 10 mg at bedtime, albuterol sulfate 2.5 mg every 6 hours, albuterol sulfate by nebulizer twice a day, ferrous sulfate 324 mg every 48 hours, pravastatin sodium 40 mg at bedtime, amlodipine besylate 5 mg daily, methyl salicylate 4 times a day, acetaminophen 1000 mg 3 times a day, levetiracetam 500 mg p.o. b.i.d., sertraline for Zoloft 100 mg daily, benzonatate 100 mg t.i.d., Maalox 15 mL 4 times a day, milk of magnesia 30 mL p.o. daily p.r.n., lactobacillus rhamnosus twice a day, clotrimazole cream twice a day, cyanocobalamin for vitamin B12 1000 mcg once a day, folic acid 1 mg once a day, cholecalciferol 50,000 international unit once a week. PHYSICAL EXAMINATION: GENERAL: On examining her today, she looked well and was clearly in no apparent distress, pale, but no jaundice, cyanosis, or thyromegaly. No jugular venous distention. No limb edema. VITAL SIGNS: Her heart rate was 88, blood pressure was 130/79, temperature was 97.7, respiratory rate 20, and oxygen saturation was 94%. HEAD, EYES, EARS, NOSE, AND THROAT: Showed normocephalic, atraumatic. NECK: Supple. HEART: Showed normal first and second heart sounds with no gallop, rub, or murmur. CHEST: Clear to auscultation. No crepitation or rhonchi. ABDOMEN: Distended, soft, nontender. No guarding or rigidity. No organomegaly. Hernial orifice intact. Bowel sounds normal. NEUROLOGIC: She is demented, but without any obvious lateralizing sign. All her cranial nerves are intact. EXTREMITIES: She moves her extremities without difficulty. She is very unsteady on her feet. However, she walks with a walker. LABORATORY DATA: As of this morning, her white cell count was 9500, hemoglobin 12.7, hematocrit 39, MCV 86, and platelet count 284,000. Her serum sodium was 139, potassium 3.2, chloride 101, bicarbonate 33, anion gap of 5, BUN 28, creatinine 0.9. Estimated GFR was 59 mL per minute. Her glucose was 137, calcium was 8.9. Total bilirubin, AST, ALT, alkaline phosphatase were normal. Total protein was 7.5, albumin 3.3. IMPRESSION: In summary, this is an 88-year-old female patient who was admitted on account of increased agitation, combativeness with a background of severe dementia. Medically, she has multiple medical problems including acute encephalopathy likely due to Haldol resolved, seizure disorder for which she is on Keppra. 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 She has dementia of Alzheimer type with behavioral disturbances. Other medical problems include hypertension, hyperlipidemia, chronic diastolic congestive heart failure, and she has also hypokalemia. Her potassium is only 3.2. PLAN: My plan is to replenish her potassium. Continue meanwhile with all the other medication. We will follow her on a regular basis. Thank you, Dr. العراقي for allowing me to participate in the care of this patient. MARLI TRAN MD DR: NICHOLAS/dee JOB#: [id number] / [id number]
--- NOTE | 2018-07-04 23:01 | PDOC ---
Exam Note: Dinesh Note: Please also refer to the separate dictated note~for this date of service dictated separately.~Patient seen individually. Discussed the patient with Nursing staff reviewed the chart.~Reviewed interim history and current functioning. Reviewed vital signs,~Labs/ Radiology~and current medications noted below. Continue current treatment with the changes noted in the dictated addendum note Assessment: Vital Signs: Vital Signs Date Time Temp Pulse Resp B/P (MAP) Pulse Ox O2 Delivery O2 Flow Rate FiO2 07/04/18 20:10 95 Room Air 07/04/18 16:08 98.5 95 16 130/73 (92) I&O Intake and Output 07/04/18 07:00 Intake Total 120 ml Balance 120 ml Intake Oral 120 ml # Voids 1 Labs: Laboratory Tests Test 07/04/18 09:10 White Blood Count 9.5 x10^3/uL (4.0-11.0) Red Blood Count 4.58 x10^6/uL (3.50-5.40) Hemoglobin 12.7 g/dL (12.0-15.5) Hematocrit 39.4 % (36.0-47.0) Mean Corpuscular Volume 86 fL (79-100) Mean Corpuscular Hemoglobin 28 pg (25-35) Mean Corpuscular Hemoglobin Concent 32 g/dL (31-37) Red Cell Distribution Width 14.7 % (11.5-14.5) H Platelet Count 284 x10^3/uL (140-400) Neutrophils (%) (Auto) 80 % (31-73) H Lymphocytes (%) (Auto) 10 % (24-48) L Monocytes (%) (Auto) 7 % (0-9) Eosinophils (%) (Auto) 1 % (0-3) Basophils (%) (Auto) 1 % (0-3) Neutrophils # (Auto) 7.6 x10^3uL (1.8-7.7) Lymphocytes # (Auto) 1.0 x10^3/uL (1.0-4.8) Monocytes # (Auto) 0.7 x10^3/uL (0.0-1.1) Eosinophils # (Auto) 0.1 x10^3/uL (0.0-0.7) Basophils # (Auto) 0.0 x10^3/uL (0.0-0.2) Sodium Level 139 mmol/L (136-145) Potassium Level 3.2 mmol/L (3.5-5.1) L Chloride Level 101 mmol/L (98-107) Carbon Dioxide Level 33 mmol/L (21-32) H Anion Gap 5 (6-14) L Blood Urea Nitrogen 28 mg/dL (7-20) H Creatinine 0.9 mg/dL (0.6-1.0) Estimated GFR (Cockcroft-Gault) 59.2 BUN/Creatinine Ratio 31 (6-20) H Glucose Level 137 mg/dL (70-99) H Calcium Level 8.9 mg/dL (8.5-10.1) Total Bilirubin 0.4 mg/dL (0.2-1.0) Aspartate Amino Transferase (AST) 24 U/L (15-37) Alanine Aminotransferase (ALT) 20 U/L (14-59) Alkaline Phosphatase 68 U/L (46-116) Total Protein 7.5 g/dL (6.4-8.2) Albumin 3.3 g/dL (3.4-5.0) L Albumin/Globulin Ratio 0.8 (1.0-1.7) L Current Medications: Meds: Current Medications Acetaminophen (Tylenol) 650 mg PRN Q6HRS PRN PO PAIN / TEMP; Start 07/03/18 at 16:00; Status Cancel Multi-Ingredient Ointment (Analgesic Kill Buck) 1 hailee PRN QID PRN TP MUSCLE PAIN; Start 07/03/18 at 16:00 Al Hydroxide/Mg Hydroxide (Mylanta Plus Xs) 15 ml PRN AFTMEALHC PRN PO DYSPEPSIA; Start 07/03/18 at 16:00 Magnesium Hydroxide (Milk Of Magnesia) 2,400 mg PRN QHS PRN PO CONSTIPATION; Start 07/03/18 at 16:00 Albuterol Sulfate (Ventolin) 2.5 mg PRN Q6HRS PRN NEB SHORTNESS OF BREATH; Start 07/03/18 at 16:45 Vitamin D (Vitamin D3) 50,000 unit WEEKLY PO ; Start 07/10/18 at 09:00 Cyanocobalamin (Vitamin B-12) 1,000 mcg DAILY PO Last administered on at 08:00; Start 07/04/18 at 09:00 Lactobacillus Rhamnosus (Culturelle) 1 cap BID PO Last administered on 19:24; Start 07/03/18 at 21:00 Multi-Ingredient Ointment (Analgesic Kill Buck) 1 hailee QIDPRN PRN TP MUSCLE PAIN; Start 07/03/18 at 16:45; Stop 07/03/18 at 16:54; Status DC Sertraline HCl (Zoloft) 100 mg DAILY PO Last administered on 07/04/18at 08:00; Start 07/04/18 at 09:00 Acetaminophen (Tylenol) 1,000 mg PRN TID PRN PO PAIN / TEMP; Start 07/03/18 at 17:00 Non-Formulary Medication (Albuterol Sulfate (Albuterol Sulfate Conc Neb Soln)) 1 vial 1000,2200 NEB ; Start 07/03/18 at 22:00; Stop 07/03/18 at 22:00; Status DC Amlodipine Besylate (Norvasc) 5 mg DAILY PO Last administered on 07/04/18at 08: 01; Start 07/04/18 at 09:00 Benzonatate (Tessalon Perle) 100 mg [id number] PO Last administered on 07/04/18 19:24; Start 07/03/18 at 21:00 Clotrimazole (Lotrimin) 1 hailee BID TP Last administered on 07/04/18at 19:34; Start 07/03/18 at 21:00 Donepezil HCl (Aricept) 10 mg QHS PO Last administered on 07/04/18 19:24; Start 07/03/18 at 21:00 Doxycycline Hyclate (Vibra-Tab) 100 mg BID PO Last administered on 07/04/18 19:24; Start 07/03/18 at 21:00 Ferrous Sulfate (Feosol) 325 mg Q48H PO Last administered on 07/04/18at 08:00; Start 07/04/18 at 08:00 Folic Acid (Folic Acid) 1 mg DAILY PO Last administered on 07/04/18at 08:00; Start 07/04/18 at 09:00 Levetiracetam (Keppra) 500 mg BID PO Last administered on 07/04/18 19:24; Start 07/03/18 at 21:00 Non-Formulary Medication (Mag Hydrox/ Aluminum Hyd/ Simeth (Maalox Advanced Suspension)) 15 ml QID PRN PO DYSPEPSIA; Start 07/03/18 at 16:45; Stop at 16:58; Status DC Non-Formulary Medication (Magnesium Hydroxide (Milk Of Magnesia)) 2,400 mg HS PRN PO CONSTIPATION; Start 07/03/18 at 16:45; Stop 07/03/18 at 16:58; Status DC Melatonin 3 mg PRN QHS PRN PO INSOMNIA; Start 07/03/18 at 17:00 Pravastatin Sodium (Pravachol) 40 mg QHS PO Last administered on 07/04/18at 19: 24; Start 07/03/18 at 21:00 Sertraline HCl (Zoloft) 25 mg DAILY PO Last administered on 07/04/18at 07:56; Start 07/04/18 at 09:00 Albuterol Sulfate (Ventolin) 2.5 mg BID@1000,2200 NEB Last administered on at 20:38; Start 07/03/18 at 22:00 Haloperidol (Haldol) 0.5 mg DAILY PO Last administered on 07/04/18at 08:01; Start 07/04/18 at 09:00 Haloperidol (Haldol) 0.5 mg PRN QEVNG PRN PO PSYCHOSIS; Start 07/03/18 at 19: 00 Potassium Chloride (Klor-Con) 20 meq TID PO Last administered on 07/04/18at 19: 34; Start 07/04/18 at 21:00 Active Scripts Active Reported Doxycycline Hyclate 100 Mg Capsule 1 Cap PO BID Analgesic [place] (Methyl Salicylate/Menthol) 28 Gm Oint...g. 1 Applic TP QIDPRN PRN Milk Of Magnesia (Magnesium Hydroxide) 2,400 Mg/10 Ml Oral.susp 2,400 Mg PO HS PRN Maalox Advanced Suspension (Mag Hydrox/Aluminum Hyd/Simeth) 355 Ml Oral.susp 15 Ml PO QID PRN Culturelle (Lactobacillus Rhamnosus Gg) 1 Each Cap.sprink 1 Each PO BID D3-50 (Cholecalciferol (Vitamin D3)) 50,000 Unit Capsule 1 Cap PO WEEKLY Tessalon Perle (Benzonatate) 100 Mg Capsule 1 Cap PO TID Albuterol Sulfate Conc Neb Soln (Albuterol Sulfate) 2.5 Mg/0.5 Ml Vial.neb 1 Vial NEB 1000,2200 Zoloft (Sertraline Hcl) 25 Mg Tablet 25 Mg PO DAILY Zoloft (Sertraline Hcl) 100 Mg Tablet 100 Mg PO DAILY Pravastatin Sodium 40 Mg Tablet 40 Mg PO HS Melatonin 3 Mg Tablet 3 Mg PO HS PRN Levetiracetam 500 Mg Tablet 500 Mg PO BID Folic Acid 1 Mg Tablet 1 Mg PO DAILY Ferrous Sulfate 324 Mg Tablet.dr 324 Mg PO Q48HRS Donepezil Hcl 5 Mg Tablet 10 Mg PO HS Vitamin B-12 (Cyanocobalamin (Vitamin B-12)) 1,000 Mcg Tablet 1,000 Mcg PO DAILY Clotrimazole 15 Gm Cream..g. 1 Hailee TP BID Amlodipine Besylate 5 Mg Tablet 5 Mg PO DAILY Albuterol Sulfate Neb Soln (Albuterol Sulfate) 2.5 Mg/3 Ml Vial.neb 3 Ml NEB PRN Q6HRS PRN Acetaminophen 500 Mg Tablet 1,000 Mg PO TID PRN I have reviewed the current psychotropics carefully including drug interactions. Risk benefit ratio favors no change other than as noted in my dictated progress note. Diagnosis: Problems: (1) Bilateral pleural effusion (2) Chronic diastolic CHF (congestive heart failure) (3) Anxiety disorder (4) Dementia in Alzheimer's disease with delusions (5) Dementia in Alzheimer's disease with depression (6) Dementia, vascular, with delusions (7) Dementia, vascular, with depression (8) Impulse control disorder ANTWAN MUÑOZ MD Jul 04, 2018 23:01
[2018-07-05 06:02] VITALS: BP 134/66
[2018-07-05] MEDS: POTASSIUM CHLORIDE 20 MEQ TABLET.ER. PO SCH ×3 (09:00→19:16)
[2018-07-05] MEDS: SERTRALINE 100 MG TABLET. PO SCH (09:00)
[2018-07-05] MEDS: CLOTRIMAZOLE 1% TOPICAL CREAM 30GM TUBE. TP SCH ×2 (09:00→19:19)
[2018-07-05] MEDS: levETIRAcetam 500 MG TABLET PO SCH ×2 (09:00→19:16)
[2018-07-05] MEDS: amLODIPine BESYLATE 5 MG TABLET PO SCH (09:00)
[2018-07-05] MEDS: HALOPERIDOL 0.5 MG TABLET PO SCH (09:00)
[2018-07-05] MEDS: BENZONATATE 100 MG CAPSULE. PO SCH ×3 (09:00→19:16)
[2018-07-05] MEDS: DOXYCYCLINE HYCLATE 100 MG TABLET PO SCH ×2 (09:00→19:16)
[2018-07-05] MEDS: FOLIC ACID 1 MG TABLET PO SCH (09:00)
[2018-07-05] MEDS: CYANOCOBALAMIN (VITAMIN B-12) 1,000 MCG TABLET. PO SCH (09:00)
[2018-07-05] MEDS: LACTOBACILLUS RHAMNOSUS GG 1 CAPSULE. PO SCH ×2 (09:00→19:16)
[2018-07-05] MEDS: SERTRALINE 25 MG TABLET. PO SCH (09:00)
[2018-07-05] MEDS: ALBUTEROL SULFATE 2.5 MG/3 ML NEBU. NEB SCH ×2 (11:11→20:06)
[2018-07-05 16:05] VITALS: BP 136/72
[2018-07-05] MEDS: PRAVASTATIN 20 MG TABLET. PO SCH (19:16)
[2018-07-05] MEDS: DONEPEZIL HCL 10 MG TABLET PO SCH (19:16)
--- NOTE | 2018-07-05 21:36 | PN ---
DATE: 07/04/2018 This is a late entry for 07/04/2018 covers elements not covered in my initial note. SUBJECTIVE: I met with the patient in the evening and staffed at a treatment team meeting with the entire team in the morning. We reviewed the patient's history at length. The patient's daughter, Sharona, was to attend, but was unable to make it. The patient slept 4-3/4 hours previous evening, got up around 04:00 a.m. more agitated, but redirectable. REVIEW OF SYSTEMS: Ambulation impaired with walker. No CV, , pulmonary, eye, ENT system symptoms on review. MENTAL STATUS EXAM: Oriented to herself. Insight, judgment, recent and remote memory, attention, concentration, fund of knowledge poor, consistent with her diagnosis mentioned in my initial note. IMPRESSION: Major neurocognitive disorder, Alzheimer, vascular with delusion, depression, behavioral disturbance. Rest unchanged. PLAN: No change from initial note. Maintain Zoloft, Aricept, melatonin and Haldol 0.5 mg in the morning, may repeat x 1 in the afternoon if needed for psychosis. MAN Davide MUÑOZ MD DR: ALBARO/dee JOB#: [id number] / [id number]
[2018-07-05] MEDS: MELATONIN 3 MG TABLET PO PRN (22:35)
--- NOTE | 2018-07-06 01:42 | PN ---
DATE: 07/05/2018 SUBJECTIVE: The patient was seen today, met with the staff, chart reviewed and also covering for Dr. العراقي. The patient is still feeling lethargic. Recently, he was sent to the ICU briefly for being too lethargic. The patient apparently was on Haldol. The patient is able to walk with a walker. Denies of any falls. OBSERVATION: VITAL SIGNS: Temperature 98.2, blood pressure 134/66, pulse 77, respiration 18, O2 sat 97%. Slept about 7 hours last night. The patient's appetite has improved. CURRENT MEDICATIONS: Include Haldol 0.5 mg daily, Zoloft 25 mg daily, also 100 mg daily. The patient is also on Keppra 500 mg b.i.d., also Aricept 10 mg at night, also on Haldol 0.5 mg daily p.r.n., melatonin 3 mg at night p.r.n. The patient is not having any side effects. The patient is not presenting with any major medical issues at this time. ASSESSMENT: 1. Major neurocognitive disorder, Alzheimer's, vascular with delusions, depression, and behavioral disturbances. 2. Anxiety disorder, unspecified. PLAN: To continue with the current treatment. HARRY GARCIA MD DR: NADIA/dee JOB#: [id number] / [id number]
[2018-07-06 05:34] VITALS: BP 160/68
[2018-07-06] MEDS: FERROUS SULFATE 325 MG TABLET. PO SCH ×2 (08:00→08:41)
[2018-07-06] MEDS: levETIRAcetam 500 MG TABLET PO SCH ×3 (08:42→19:26)
[2018-07-06] MEDS: FOLIC ACID 1 MG TABLET PO SCH ×2 (08:42→09:00)
[2018-07-06] MEDS: LACTOBACILLUS RHAMNOSUS GG 1 CAPSULE. PO SCH ×3 (08:42→19:26)
[2018-07-06] MEDS: HALOPERIDOL 0.5 MG TABLET PO SCH ×3 (08:42→12:03)
[2018-07-06] MEDS: POTASSIUM CHLORIDE 20 MEQ TABLET.ER. PO SCH ×4 (08:43→19:26)
[2018-07-06] MEDS: BENZONATATE 100 MG CAPSULE. PO SCH ×4 (08:46→19:25)
[2018-07-06] MEDS: amLODIPine BESYLATE 5 MG TABLET PO SCH ×3 (08:47→09:45)
[2018-07-06] MEDS: DOXYCYCLINE HYCLATE 100 MG TABLET PO SCH ×3 (08:47→19:26)
[2018-07-06] MEDS: CYANOCOBALAMIN (VITAMIN B-12) 1,000 MCG TABLET. PO SCH ×2 (08:47→09:00)
[2018-07-06] MEDS: SERTRALINE 25 MG TABLET. PO SCH ×2 (08:48→09:00)
[2018-07-06] MEDS: CLOTRIMAZOLE 1% TOPICAL CREAM 30GM TUBE. TP SCH ×3 (08:48→19:26)
[2018-07-06] MEDS: SERTRALINE 100 MG TABLET. PO SCH ×2 (08:48→09:00)
[2018-07-06] MEDS: ALBUTEROL SULFATE 2.5 MG/3 ML NEBU. NEB SCH ×2 (10:16→21:19)
[2018-07-06] MEDS: HALOPERIDOL 0.5 MG TABLET PO PRN ×2 (14:10→15:27)
[2018-07-06 15:37] VITALS: BP 147/70
[2018-07-06 18:27] VITALS: BP 122/54
[2018-07-06] MEDS: DONEPEZIL HCL 10 MG TABLET PO SCH (19:26)
[2018-07-06] MEDS: PRAVASTATIN 20 MG TABLET. PO SCH (19:26)
--- NOTE | 2018-07-07 04:06 | PN ---
DATE: 07/06/2018 SUBJECTIVE: The patient was seen today, met with the staff, and chart reviewed. The patient reports still increased agitation, gets irritable and newby easily. She is able to walk. No falls. The patient has not presented with any major medical issues today. OBSERVATION: VITAL SIGNS: Temperature 97.6, blood pressure 160/68, pulse 87, respirations 18, and O2 sat 95%. Slept only about 3 hours last night. LABORATORY DATA: The patient's medications were reviewed. She is on Haldol 0.5 mg daily, Zoloft 25 mg daily along with 100 mg. The patient is also on Keppra 500 mg b.i.d., Aricept 10 mg at night and Haldol 0.5 mg daily p.r.n. The patient denies of any major side effects. ASSESSMENT: 1. Major neurocognitive disorder, Alzheimer's, vascular with delusions, depression and behavioral disturbances. 2. Anxiety disorder, unspecified. PLAN: Continue with the treatment. HARRY GARCIA MD DR: NADIA/dee JOB#: [id number] / [id number]
[2018-07-07 05:31] VITALS: BP 157/73
[2018-07-07] MEDS: levETIRAcetam 500 MG TABLET PO SCH ×2 (09:04→20:11)
[2018-07-07] MEDS: SERTRALINE 100 MG TABLET. PO SCH (09:04)
[2018-07-07] MEDS: LACTOBACILLUS RHAMNOSUS GG 1 CAPSULE. PO SCH ×2 (09:04→20:11)
[2018-07-07] MEDS: FOLIC ACID 1 MG TABLET PO SCH (09:04)
[2018-07-07] MEDS: CYANOCOBALAMIN (VITAMIN B-12) 1,000 MCG TABLET. PO SCH (09:06)
[2018-07-07] MEDS: BENZONATATE 100 MG CAPSULE. PO SCH ×3 (09:06→20:10)
[2018-07-07] MEDS: DOXYCYCLINE HYCLATE 100 MG TABLET PO SCH ×2 (09:06→20:11)
[2018-07-07] MEDS: SERTRALINE 25 MG TABLET. PO SCH (09:06)
[2018-07-07] MEDS: HALOPERIDOL 0.5 MG TABLET PO SCH (09:07)
[2018-07-07] MEDS: CLOTRIMAZOLE 1% TOPICAL CREAM 30GM TUBE. TP SCH ×2 (09:08→20:12)
[2018-07-07] MEDS: POTASSIUM CHLORIDE 20 MEQ TABLET.ER. PO SCH ×3 (09:15→20:11)
[2018-07-07] MEDS: amLODIPine BESYLATE 5 MG TABLET PO SCH (09:16)
[2018-07-07] MEDS: ALBUTEROL SULFATE 2.5 MG/3 ML NEBU. NEB SCH ×2 (10:17→20:17)
[2018-07-07 17:10] VITALS: BP 127/73
[2018-07-07] MEDS: HALOPERIDOL 0.5 MG TABLET PO PRN (18:11)
[2018-07-07] MEDS: PRAVASTATIN 20 MG TABLET. PO SCH (20:11)
[2018-07-07] MEDS: DONEPEZIL HCL 10 MG TABLET PO SCH (20:11)
[2018-07-07] MEDS: MELATONIN 3 MG TABLET PO PRN (22:27)
[2018-07-08 06:28] VITALS: BP 129/55
[2018-07-08] MEDS: CYANOCOBALAMIN (VITAMIN B-12) 1,000 MCG TABLET. PO SCH ×2 (09:25→09:30)
[2018-07-08] MEDS: FERROUS SULFATE 325 MG TABLET. PO SCH ×2 (09:25→09:32)
[2018-07-08] MEDS: BENZONATATE 100 MG CAPSULE. PO SCH ×4 (09:25→19:48)
[2018-07-08] MEDS: POTASSIUM CHLORIDE 20 MEQ TABLET.ER. PO SCH ×4 (09:25→19:48)
[2018-07-08] MEDS: levETIRAcetam 500 MG TABLET PO SCH ×3 (09:25→19:47)
[2018-07-08] MEDS: SERTRALINE 25 MG TABLET. PO SCH (09:28)
[2018-07-08] MEDS: SERTRALINE 100 MG TABLET. PO SCH (09:28)
[2018-07-08] MEDS: LACTOBACILLUS RHAMNOSUS GG 1 CAPSULE. PO SCH ×2 (09:28→19:47)
[2018-07-08] MEDS: DOXYCYCLINE HYCLATE 100 MG TABLET PO SCH ×2 (09:29→19:48)
[2018-07-08] MEDS: amLODIPine BESYLATE 5 MG TABLET PO SCH (09:30)
[2018-07-08] MEDS: FOLIC ACID 1 MG TABLET PO SCH (09:30)
[2018-07-08] MEDS: HALOPERIDOL 0.5 MG TABLET PO SCH (09:30)
[2018-07-08] MEDS: CLOTRIMAZOLE 1% TOPICAL CREAM 30GM TUBE. TP SCH ×2 (09:31→19:49)
[2018-07-08] MEDS: ALBUTEROL SULFATE 2.5 MG/3 ML NEBU. NEB SCH ×2 (12:14→22:07)
--- NOTE | 2018-07-08 14:49 | RAD ---
Right hip, 2 views, 07/08/2018: HISTORY: Fall A bipolar right hip prosthesis is in place in satisfactory position. No fracture or dislocation is identified. The bony structures are demineralized. Surgical clips are projected over the right side of the pelvis. Degenerative changes are evident at the symphysis pubis. IMPRESSION: 1. A right hip prosthesis is in satisfactory position. 2. No acute bony abnormality is detected. Right wrist, 3 views, 07/08/2018: HISTORY: Fall There is patchy bony demineralization. Moderate degenerative change is present at the first CMC joint and to a lesser degree at the radiocarpal articulation. Scattered degenerative-type cysts are noted. No recent fracture or dislocation is identified. IMPRESSION: 1. Demineralization. 2. Degenerative change. 3. No acute bony abnormality is detected. Electronically signed by: Braxton Marte MD (07/08/2018 2:46 PM) [facility]
[2018-07-08 16:09] VITALS: BP 147/76
[2018-07-08] MEDS: DONEPEZIL HCL 10 MG TABLET PO SCH (19:47)
[2018-07-08] MEDS: PRAVASTATIN 20 MG TABLET. PO SCH (19:48)
--- NOTE | 2018-07-09 00:08 | PN ---
DATE: 07/08/2018 SUBJECTIVE: The patient was seen today, met with the staff, chart reviewed. The patient continues to show mood swings, irritability. The patient is able to walk, no falls. OBSERVATION: VITAL SIGNS: Temperature 98.2, blood pressure 129/55, pulse 83, respiration 18, O2 sat 93%. Slept about 3 hours last night. CURRENT MEDICATIONS: The patient's current medications include Haldol, Zoloft, Keppra, Aricept. He is also on Haldol p.r.n. The patient is not having any side effects. ASSESSMENT: 1. Major neurocognitive disorder, Alzheimer's, vascular with delusions, depression, and behavioral disturbances. 2. Anxiety disorder, unspecified. PLAN: Continue with the treatment. HARRY GARCIA MD DR: NADIA/dee JOB#: [id number] / [id number]
[2018-07-09 05:45] VITALS: BP 116/66
[2018-07-09] MEDS: ACETAMINOPHEN 500 MG TABLET PO PRN (06:18)
[2018-07-09] MEDS: BENZONATATE 100 MG CAPSULE. PO SCH ×3 (08:04→19:30)
[2018-07-09] MEDS: levETIRAcetam 500 MG TABLET PO SCH ×2 (08:04→19:32)
[2018-07-09] MEDS: CYANOCOBALAMIN (VITAMIN B-12) 1,000 MCG TABLET. PO SCH (08:04)
[2018-07-09] MEDS: HALOPERIDOL 0.5 MG TABLET PO SCH (08:04)
[2018-07-09] MEDS: SERTRALINE 100 MG TABLET. PO SCH (08:04)
[2018-07-09] MEDS: POTASSIUM CHLORIDE 20 MEQ TABLET.ER. PO SCH ×3 (08:04→19:31)
[2018-07-09] MEDS: SERTRALINE 25 MG TABLET. PO SCH (08:04)
[2018-07-09] MEDS: LACTOBACILLUS RHAMNOSUS GG 1 CAPSULE. PO SCH ×2 (08:04→19:30)
[2018-07-09] MEDS: CLOTRIMAZOLE 1% TOPICAL CREAM 30GM TUBE. TP SCH ×2 (08:05→19:33)
[2018-07-09] MEDS: DOXYCYCLINE HYCLATE 100 MG TABLET PO SCH ×2 (08:05→19:30)
[2018-07-09] MEDS: FOLIC ACID 1 MG TABLET PO SCH (08:05)
[2018-07-09] MEDS: amLODIPine BESYLATE 5 MG TABLET PO SCH (08:05)
[2018-07-09] MEDS: ALBUTEROL SULFATE 2.5 MG/3 ML NEBU. NEB SCH ×2 (10:05→20:18)
[2018-07-09] MEDS: HALOPERIDOL 0.5 MG TABLET PO PRN (11:39)
[2018-07-09 15:59] VITALS: BP 123/59
[2018-07-09] MEDS: HALOPERIDOL 2 MG TABLET PO PRN (17:10)
[2018-07-09] MEDS: DONEPEZIL HCL 10 MG TABLET PO SCH (19:30)
[2018-07-09] MEDS: PRAVASTATIN 20 MG TABLET. PO SCH (19:31)
--- NOTE | 2018-07-09 23:31 | PN ---
DATE: 07/09/2018 SUBJECTIVE: The patient was seen today, met with the staff, chart reviewed. The patient continues to have involuntary movements. The patient has not presented with any major behavior problems. OBSERVATION: VITAL SIGNS: Temperature 98.1, blood pressure 116/66, pulse 88, respirations 18, O2 sat 94%. Slept about 8 hours last night. The patient's appetite has improved. LABORATORY DATA: The patient's labs are within normal range. ASSESSMENT: 1. Major neurocognitive disorder, Alzheimer's, vascular with delusions and depression, and behavioral disturbances. 2. Anxiety disorder, unspecified. 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 No change in medications. HARRY GARCIA MD DR: NADIA/dee JOB#: [id number] / [id number]
[2018-07-10] MEDS: ACETAMINOPHEN 500 MG TABLET PO PRN (00:59)
[2018-07-10 05:33] VITALS: BP 130/71
[2018-07-10] MEDS: FOLIC ACID 1 MG TABLET PO SCH (08:30)
[2018-07-10] MEDS: DOXYCYCLINE HYCLATE 100 MG TABLET PO SCH ×2 (08:30→19:23)
[2018-07-10] MEDS: POTASSIUM CHLORIDE 20 MEQ TABLET.ER. PO SCH ×3 (08:31→19:23)
[2018-07-10] MEDS: amLODIPine BESYLATE 5 MG TABLET PO SCH (08:31)
[2018-07-10] MEDS: SERTRALINE 25 MG TABLET. PO SCH (08:31)
[2018-07-10] MEDS: LACTOBACILLUS RHAMNOSUS GG 1 CAPSULE. PO SCH ×2 (08:31→19:22)
[2018-07-10] MEDS: SERTRALINE 100 MG TABLET. PO SCH (08:31)
[2018-07-10] MEDS: FERROUS SULFATE 325 MG TABLET. PO SCH (08:31)
[2018-07-10] MEDS: BENZONATATE 100 MG CAPSULE. PO SCH ×3 (08:31→19:23)
[2018-07-10] MEDS: HALOPERIDOL 0.5 MG TABLET PO SCH (08:32)
[2018-07-10] MEDS: levETIRAcetam 500 MG TABLET PO SCH ×2 (08:32→19:22)
[2018-07-10] MEDS: CYANOCOBALAMIN (VITAMIN B-12) 1,000 MCG TABLET. PO SCH (08:32)
[2018-07-10] MEDS: CLOTRIMAZOLE 1% TOPICAL CREAM 30GM TUBE. TP SCH ×2 (08:34→19:23)
[2018-07-10] MEDS ORDERED: CHOLECALCIFEROL (VITAMIN D3) 50,000 UNIT CAPSULE PO SCH (09:00)
[2018-07-10] MEDS: ALBUTEROL SULFATE 2.5 MG/3 ML NEBU. NEB SCH ×2 (11:46→20:11)
[2018-07-10 16:10] VITALS: BP_SYST 128; BP_SYST 132; BP_DIAS 68; BP_DIAS 73
[2018-07-10] MEDS: DONEPEZIL HCL 10 MG TABLET PO SCH (19:22)
[2018-07-10] MEDS: PRAVASTATIN 20 MG TABLET. PO SCH (19:23)
--- NOTE | 2018-07-10 21:14 | PN ---
DATE: 07/10/2018 SUBJECTIVE: The patient was seen today, met with the staff, chart reviewed. The patient continues to have involuntary movements. The patient has not presented with any major behavior problems. The patient still withdrawn, isolative, resistive, at times combative. The patient has not received any p.r.n. medications lately. OBSERVATION: VITAL SIGNS: Temperature 97.6, blood pressure 130/71, pulse 82, respirations 18, O2 sat 96%. Slept about 4 hours last night. MEDICATIONS: Currently, she is on Haldol 2 mg b.i.d. p.r.n., Haldol 0.5 mg daily, Zoloft 25 mg daily, also 100 mg daily. She is also on Keppra 500 mg b.i.d., Aricept 10 mg at night, melatonin 3 mg at night p.r.n. The patient is not having any side effects. ASSESSMENT: 1. Major neurocognitive disorder, Alzheimer's, vascular with delusions, depression, and behavioral disturbances. 2. Anxiety disorder, unspecified. PLAN: To continue with the treatment. The patient is awaiting for placements. HARRY GARCIA MD DR: NADIA/dee JOB#: [id number] / [id number]
[2018-07-11] MEDS: ACETAMINOPHEN 500 MG TABLET PO PRN (00:39)
[2018-07-11] MEDS: MELATONIN 3 MG TABLET PO PRN (00:39)
[2018-07-11 05:51] VITALS: BP 130/63
[2018-07-11 07:59] LABS: BASO # 0.1 x10^3/uL (0.0-0.2); BASO % 1 % (0-3); EOS # 0.1 x10^3/uL (0.0-0.7); EOS % 1 % (0-3); HEMATOCRIT 39.5 % (36.0-47.0); HEMOGLOBIN 12.6 g/dL (12.0-15.5); LYMPH # 1.2 x10^3/uL (1.0-4.8); LYMPH % 17 % (24-48); MEAN CORPUSCULAR HEMOGLOBIN 27 pg (25-35); MEAN CORPUSCULAR HGB CONC 32 g/dL (31-37); MEAN CORPUSCULAR VOLUME 85 fL (79-100); MONO # 0.6 x10^3/uL (0.0-1.1); MONO % 9 % (0-9); NEUT % 72 % (31-73); PLATELET COUNT 335 x10^3/uL (140-400); RED BLOOD COUNT 4.63 x10^6/uL (3.50-5.40); WHITE BLOOD COUNT 6.9 x10^3/uL (4.0-11.0)
[2018-07-11 08:08] LABS: ALBUMIN 3.4 g/dL (3.4-5.0); ALBUMIN/GLOBULIN RATIO 0.9 (1.0-1.7); CALCIUM 9.2 mg/dL (8.5-10.1); CREATININE 0.8 mg/dL (0.6-1.0); GFR 67.8; POTASSIUM 4.2 mmol/L (3.5-5.1); TOTAL BILIRUBIN 0.6 mg/dL (0.2-1.0); TOTAL PROTEIN 7.4 g/dL (6.4-8.2)
[2018-07-11] MEDS: HALOPERIDOL 0.5 MG TABLET PO SCH ×2 (08:51→12:10)
[2018-07-11] MEDS: CYANOCOBALAMIN (VITAMIN B-12) 1,000 MCG TABLET. PO SCH ×2 (08:51→12:10)
[2018-07-11] MEDS: DOXYCYCLINE HYCLATE 100 MG TABLET PO SCH ×3 (08:52→21:18)
[2018-07-11] MEDS: POTASSIUM CHLORIDE 20 MEQ TABLET.ER. PO SCH ×5 (08:52→21:18)
[2018-07-11] MEDS: LACTOBACILLUS RHAMNOSUS GG 1 CAPSULE. PO SCH ×3 (08:52→21:18)
[2018-07-11] MEDS: FOLIC ACID 1 MG TABLET PO SCH ×2 (08:52→12:10)
[2018-07-11] MEDS: BENZONATATE 100 MG CAPSULE. PO SCH ×5 (08:52→21:18)
[2018-07-11] MEDS: amLODIPine BESYLATE 5 MG TABLET PO SCH ×2 (08:53→12:10)
[2018-07-11] MEDS: levETIRAcetam 500 MG TABLET PO SCH ×3 (08:53→21:18)
[2018-07-11] MEDS: SERTRALINE 100 MG TABLET. PO SCH ×2 (08:53→12:10)
[2018-07-11] MEDS: SERTRALINE 25 MG TABLET. PO SCH ×2 (08:53→12:10)
[2018-07-11] MEDS: ALBUTEROL SULFATE 2.5 MG/3 ML NEBU. NEB SCH ×2 (11:34→20:21)
[2018-07-11] MEDS: CLOTRIMAZOLE 1% TOPICAL CREAM 30GM TUBE. TP SCH ×2 (12:10→21:20)
[2018-07-11 15:51] VITALS: BP 119/66
--- NOTE | 2018-07-11 18:41 | PN ---
DATE: 07/11/2018 SUBJECTIVE: The patient was seen today, met with the staff, chart reviewed. The patient's behavior remains the same. She is irritable, newby, prefers to be left alone. Poor eye contact and also she is indifferent to her surroundings, difficult to redirect at times. OBSERVATION: VITAL SIGNS: Temperature 98.0, blood pressure 119/66, pulse 84, respiration 18, O2 sat 96%. GENERAL: The patient's appetite has improved. Sleep varies, not getting enough sleep. MEDICATIONS: The patient's current medications include Haldol, Zoloft, Aricept, and Keppra. She is also on melatonin 3 mg at night p.r.n. The patient is not having any physical complaints, no major side effects to the medications. ASSESSMENT: 1. Major neurocognitive disorder, Alzheimer's, vascular with delusions, depression, and behavioral disturbances. 2. Anxiety disorder, unspecified. PLAN: To continue with the treatment. The patient is awaiting for placement. HARRY GARCIA MD DR: NADIA/dee JOB#: [id number] / [id number]
[2018-07-11] MEDS: DONEPEZIL HCL 10 MG TABLET PO SCH (21:17)
[2018-07-11] MEDS: PRAVASTATIN 20 MG TABLET. PO SCH (21:18)
[2018-07-12 05:32] VITALS: BP 127/72
[2018-07-12] MEDS: amLODIPine BESYLATE 5 MG TABLET PO SCH (07:41)
[2018-07-12] MEDS: BENZONATATE 100 MG CAPSULE. PO SCH ×3 (07:41→19:35)
[2018-07-12] MEDS: SERTRALINE 25 MG TABLET. PO SCH (07:41)
[2018-07-12] MEDS: FERROUS SULFATE 325 MG TABLET. PO SCH (07:42)
[2018-07-12] MEDS: CYANOCOBALAMIN (VITAMIN B-12) 1,000 MCG TABLET. PO SCH (07:42)
[2018-07-12] MEDS: POTASSIUM CHLORIDE 20 MEQ TABLET.ER. PO SCH ×3 (07:42→19:34)
[2018-07-12] MEDS: HALOPERIDOL 0.5 MG TABLET PO SCH (07:42)
[2018-07-12] MEDS: SERTRALINE 100 MG TABLET. PO SCH (07:42)
[2018-07-12] MEDS: FOLIC ACID 1 MG TABLET PO SCH (07:42)
[2018-07-12] MEDS: LACTOBACILLUS RHAMNOSUS GG 1 CAPSULE. PO SCH ×2 (07:42→19:35)
[2018-07-12] MEDS: DOXYCYCLINE HYCLATE 100 MG TABLET PO SCH ×2 (07:42→19:35)
[2018-07-12] MEDS: levETIRAcetam 500 MG TABLET PO SCH ×2 (07:43→19:35)
[2018-07-12] MEDS: CLOTRIMAZOLE 1% TOPICAL CREAM 30GM TUBE. TP SCH ×2 (07:45→19:35)
[2018-07-12] MEDS: ALBUTEROL SULFATE 2.5 MG/3 ML NEBU. NEB SCH ×2 (10:00→20:01)
[2018-07-12 15:21] VITALS: BP 120/74
--- NOTE | 2018-07-12 18:14 | PN ---
DATE: 07/12/2018 SUBJECTIVE: The patient was seen today, met with the staff, chart reviewed. The patient has not presented with any major problems except being anxious, agitation at times, also delusional thinking and resistive to care. OBSERVATION: VITAL SIGNS: Temperature 97.9, blood pressure 127/72, pulse 83, respirations 21, O2 sat 92%. Slept about 5 hours last night. MEDICATIONS: Reviewed. Zoloft was decreased to 75 mg at night from 125. The patient continued on her Aricept 10 mg at night, melatonin 3 mg at night p.r.n., Haldol 2 mg b.i.d., Keppra 500 mg b.i.d. The patient is not showing any major side effects, no major medical issues. ASSESSMENT: 1. Major neurocognitive disorder, Alzheimer's, vascular with delusions, depression, and behavioral disturbances. 2. Anxiety disorder, unspecified. PLAN: Continue with the current treatment. HARRY GARCIA MD DR: NADIA/dee JOB#: [id number] / [id number]
[2018-07-12] MEDS: DONEPEZIL HCL 10 MG TABLET PO SCH (19:35)
[2018-07-12] MEDS: HALOPERIDOL 2 MG TABLET PO PRN (19:35)
[2018-07-12] MEDS: PRAVASTATIN 20 MG TABLET. PO SCH (19:35)
[2018-07-13 05:50] VITALS: BP 147/64
[2018-07-13] MEDS: DOXYCYCLINE HYCLATE 100 MG TABLET PO SCH ×2 (09:34→19:36)
[2018-07-13] MEDS: LACTOBACILLUS RHAMNOSUS GG 1 CAPSULE. PO SCH ×2 (09:34→19:36)
[2018-07-13] MEDS: CYANOCOBALAMIN (VITAMIN B-12) 1,000 MCG TABLET. PO SCH (09:34)
[2018-07-13] MEDS: levETIRAcetam 500 MG TABLET PO SCH ×2 (09:35→19:37)
[2018-07-13] MEDS: HALOPERIDOL 0.5 MG TABLET PO SCH (09:35)
[2018-07-13] MEDS: POTASSIUM CHLORIDE 20 MEQ TABLET.ER. PO SCH ×3 (09:35→19:37)
[2018-07-13] MEDS: FOLIC ACID 1 MG TABLET PO SCH (09:35)
[2018-07-13] MEDS: amLODIPine BESYLATE 5 MG TABLET PO SCH (09:36)
[2018-07-13] MEDS: HALOPERIDOL 2 MG TABLET PO PRN ×2 (09:36→19:36)
[2018-07-13] MEDS: BENZONATATE 100 MG CAPSULE. PO SCH ×3 (09:36→19:36)
[2018-07-13] MEDS: CLOTRIMAZOLE 1% TOPICAL CREAM 30GM TUBE. TP SCH ×2 (09:37→19:37)
[2018-07-13] MEDS: SERTRALINE 25 MG TABLET. PO SCH (09:38)
[2018-07-13] MEDS: ALBUTEROL SULFATE 2.5 MG/3 ML NEBU. NEB SCH ×2 (10:27→20:06)
[2018-07-13 16:11] VITALS: BP 119/56
[2018-07-13] MEDS: DONEPEZIL HCL 10 MG TABLET PO SCH (19:36)
[2018-07-13] MEDS: PRAVASTATIN 20 MG TABLET. PO SCH (19:37)
[2018-07-14 05:44] VITALS: BP 126/69
[2018-07-14] MEDS: FERROUS SULFATE 325 MG TABLET. PO SCH (08:00)
[2018-07-14] MEDS: CYANOCOBALAMIN (VITAMIN B-12) 1,000 MCG TABLET. PO SCH (08:01)
[2018-07-14] MEDS: levETIRAcetam 500 MG TABLET PO SCH ×2 (08:01→19:48)
[2018-07-14] MEDS: HALOPERIDOL 0.5 MG TABLET PO SCH (08:01)
[2018-07-14] MEDS: BENZONATATE 100 MG CAPSULE. PO SCH ×3 (08:02→19:48)
[2018-07-14] MEDS: LACTOBACILLUS RHAMNOSUS GG 1 CAPSULE. PO SCH ×2 (08:02→19:49)
[2018-07-14] MEDS: amLODIPine BESYLATE 5 MG TABLET PO SCH (08:02)
[2018-07-14] MEDS: DOXYCYCLINE HYCLATE 100 MG TABLET PO SCH ×2 (08:03→19:49)
[2018-07-14] MEDS: FOLIC ACID 1 MG TABLET PO SCH (08:03)
[2018-07-14] MEDS: SERTRALINE 25 MG TABLET. PO SCH (08:03)
[2018-07-14] MEDS: POTASSIUM CHLORIDE 20 MEQ TABLET.ER. PO SCH ×3 (08:03→19:48)
[2018-07-14] MEDS: CLOTRIMAZOLE 1% TOPICAL CREAM 30GM TUBE. TP SCH ×2 (08:06→19:49)
[2018-07-14] MEDS: ALBUTEROL SULFATE 2.5 MG/3 ML NEBU. NEB SCH ×2 (11:23→19:45)
--- NOTE | 2018-07-14 12:19 | PN ---
DATE: 07/14/2018 SUBJECTIVE: The patient was seen today, met with the staff, chart reviewed. The patient's behavior remains the same, difficult to redirect, high level of anxiety, periods of agitation, still having some delusional thinking. OBSERVATIONS: VITAL SIGNS: Temperature 97.4, blood pressure 126/69, pulse 75, respirations 16, O2 sat 93%. Slept about 5 hours last night. CURRENT MEDICATIONS: The patient's medications reviewed. She continues to be on Zoloft 75 mg at night, Aricept 10 mg at night, melatonin 3 mg at night p.r.n. Haldol 2 mg b.i.d. The patient is not having any side effects. ASSESSMENT: 1. Major neurocognitive disorder, Alzheimer's, vascular with delusions, depression, and behavioral disturbances. 2. Anxiety disorder, unspecified. PLAN: To continue with the treatment. HARRY GARCIA MD DR: NADIA/dee JOB#: [id number] / [id number]
[2018-07-14 16:22] VITALS: BP 117/68
[2018-07-14] MEDS: DONEPEZIL HCL 10 MG TABLET PO SCH (19:48)
[2018-07-14] MEDS: PRAVASTATIN 20 MG TABLET. PO SCH (19:49)
[2018-07-14] MEDS: HALOPERIDOL 2 MG TABLET PO PRN (19:49)
[2018-07-15] MEDS ORDERED: HALO2TAB PO ×2 (01:01→01:02)
[2018-07-15] MEDS ORDERED: POTA10TA10 PO (01:03)
[2018-07-15] MEDS: MELATONIN 3 MG TABLET PO PRN (02:10)
[2018-07-15 05:48] VITALS: BP 154/74
[2018-07-15] MEDS: LACTOBACILLUS RHAMNOSUS GG 1 CAPSULE. PO SCH (08:20)
[2018-07-15] MEDS: FOLIC ACID 1 MG TABLET PO SCH (08:20)
[2018-07-15] MEDS: POTASSIUM CHLORIDE 20 MEQ TABLET.ER. PO SCH (08:21)
[2018-07-15] MEDS: HALOPERIDOL 0.5 MG TABLET PO SCH (08:21)
[2018-07-15] MEDS: levETIRAcetam 500 MG TABLET PO SCH (08:21)
[2018-07-15 08:23] VITALS: BP 154/74
[2018-07-15] MEDS: amLODIPine BESYLATE 5 MG TABLET PO SCH (08:23)
[2018-07-15] MEDS: CYANOCOBALAMIN (VITAMIN B-12) 1,000 MCG TABLET. PO SCH (08:31)
[2018-07-15] MEDS: BENZONATATE 100 MG CAPSULE. PO SCH (08:31)
[2018-07-15] MEDS: SERTRALINE 25 MG TABLET. PO SCH (08:32)
[2018-07-15] MEDS: ALBUTEROL SULFATE 2.5 MG/3 ML NEBU. NEB SCH (09:58)
[2018-07-15] MEDS: HALOPERIDOL 2 MG TABLET PO PRN (10:16)
--- NOTE | 2018-07-15 19:46 | PDOC ---
Exam Note: Dinesh Note: Please also refer to the separate dictated note~for this date of service dictated separately.~Patient seen individually. Discussed the patient with Nursing staff reviewed the chart.~Reviewed interim history and current functioning. Reviewed vital signs,~Labs/ Radiology~and current medications noted below. Continue current treatment with the changes noted in the dictated addendum note Assessment: Vital Signs: Vital Signs Date Time Temp Pulse Resp B/P (MAP) Pulse Ox O2 Delivery O2 Flow Rate FiO2 07/15/18 09:59 97 Room Air 07/15/18 08:23 82 154/74 07/15/18 05:48 97.8 20 I&O Intake and Output 07/15/18 07:00 Intake Total 840 ml Balance 840 ml Intake Oral 840 ml # Voids 2 # Bowel Movements 2 Current Medications: Meds: Current Medications Acetaminophen (Tylenol) 650 mg PRN Q6HRS PRN PO PAIN / TEMP; Start 07/03/18 at 16:00; Status Cancel Multi-Ingredient Ointment (Analgesic [place]) 1 hailee PRN QID PRN TP MUSCLE PAIN; Start 07/03/18 at 16:00; Stop 07/15/18 at 11:03; Status DC Al Hydroxide/Mg Hydroxide (Mylanta Plus Xs) 15 ml PRN AFTMEALHC PRN PO DYSPEPSIA; Start 07/03/18 at 16:00; Stop 07/15/18 at 11:03; Status DC Magnesium Hydroxide (Milk Of Magnesia) 2,400 mg PRN QHS PRN PO CONSTIPATION; Start 07/03/18 at 16:00; Stop 07/15/18 at 11:03; Status DC Albuterol Sulfate (Ventolin) 2.5 mg PRN Q6HRS PRN NEB SHORTNESS OF BREATH; Start 07/03/18 at 16:45; Stop 07/15/18 at 11:03; Status DC Vitamin D (Vitamin D3) 50,000 unit WEEKLY PO Last administered on 07/10/18at 08 :34; Start 07/10/18 at 09:00; Stop 07/15/18 at 11:03; Status DC Cyanocobalamin (Vitamin B-12) 1,000 mcg DAILY PO Last administered on at 08:31; Start 07/04/18 at 09:00; Stop 07/15/18 at 11:03; Status DC Lactobacillus Rhamnosus (Culturelle) 1 cap BID PO Last administered on at 08:20; Start 07/03/18 at 21:00; Stop 07/15/18 at 11:03; Status DC Multi-Ingredient Ointment (Analgesic [place]) 1 hailee QIDPRN PRN TP MUSCLE PAIN; Start 07/03/18 at 16:45; Stop 07/03/18 at 16:54; Status DC Sertraline HCl (Zoloft) 100 mg DAILY PO Last administered on 07/12/18at 07:42; Start 07/04/18 at 09:00; Stop 07/12/18 at 17:38; Status DC Acetaminophen (Tylenol) 1,000 mg PRN TID PRN PO PAIN / TEMP Last administered on 07/11/18at 00:39; Start 07/03/18 at 17:00; Stop 07/15/18 at 11:03; Status DC Non-Formulary Medication (Albuterol Sulfate (Albuterol Sulfate Conc Neb Soln)) 1 vial 1000,2200 NEB ; Start 07/03/18 at 22:00; Stop 07/03/18 at 22:00; Status DC Amlodipine Besylate (Norvasc) 5 mg DAILY PO Last administered on 07/15/18at 08: 23; Start 07/04/18 at 09:00; Stop 07/15/18 at 11:03; Status DC Benzonatate (Tessalon Perle) 100 mg [id number] PO Last administered on 07/15/18at 08:31; Start 07/03/18 at 21:00; Stop 07/15/18 at 11:03; Status DC Clotrimazole (Lotrimin) 1 hailee BID TP Last administered on 07/14/18at 19:49; Start 07/03/18 at 21:00; Stop 07/15/18 at 11:03; Status DC Donepezil HCl (Aricept) 10 mg QHS PO Last administered on 07/14/18at 19:48; Start 07/03/18 at 21:00; Stop 07/15/18 at 11:03; Status DC Doxycycline Hyclate (Vibra-Tab) 100 mg BID PO Last administered on 07/14/18at 19:49; Start 07/03/18 at 21:00; Stop 07/14/18 at 19:50; Status DC Ferrous Sulfate (Feosol) 325 mg Q48H PO Last administered on 07/14/18at 08:00; Start 07/04/18 at 08:00; Stop 07/15/18 at 11:03; Status DC Folic Acid (Folic Acid) 1 mg DAILY PO Last administered on 07/15/18at 08:20; Start 07/04/18 at 09:00; Stop 07/15/18 at 11:03; Status DC Levetiracetam (Keppra) 500 mg BID PO Last administered on 07/15/18at 08:21; Start 07/03/18 at 21:00; Stop 07/15/18 at 11:03; Status DC Non-Formulary Medication (Mag Hydrox/ Aluminum Hyd/ Simeth (Maalox Advanced Suspension)) 15 ml QID PRN PO DYSPEPSIA; Start 07/03/18 at 16:45; Stop at 16:58; Status DC Non-Formulary Medication (Magnesium Hydroxide (Milk Of Magnesia)) 2,400 mg HS PRN PO CONSTIPATION; Start 07/03/18 at 16:45; Stop 07/03/18 at 16:58; Status DC Melatonin 3 mg PRN QHS PRN PO INSOMNIA Last administered on 07/15/18at 02:10; Start 07/03/18 at 17:00; Stop 07/15/18 at 11:03; Status DC Pravastatin Sodium (Pravachol) 40 mg QHS PO Last administered on 07/14/18at 19: 49; Start 07/03/18 at 21:00; Stop 07/15/18 at 11:03; Status DC Sertraline HCl (Zoloft) 25 mg DAILY PO Last administered on 07/12/18at 07:41; Start 07/04/18 at 09:00; Stop 07/12/18 at 17:38; Status DC Albuterol Sulfate (Ventolin) 2.5 mg BID@1000,2200 NEB Last administered on at 09:58; Start 07/03/18 at 22:00; Stop 07/15/18 at 11:03; Status DC Haloperidol (Haldol) 0.5 mg DAILY PO Last administered on 07/15/18at 08:21; Start 07/04/18 at 09:00; Stop 07/15/18 at 11:03; Status DC Haloperidol (Haldol) 0.5 mg PRN QEVNG PRN PO PSYCHOSIS Last administered on at 11:39; Start 07/03/18 at 19:00; Stop 07/09/18 at 16:44; Status DC Potassium Chloride (Klor-Con) 20 meq TID PO Last administered on 07/15/18at 08: 21; Start 07/04/18 at 21:00; Stop 07/15/18 at 11:03; Status DC Haloperidol (Haldol) 2 mg BID PRN PO PSYCHOSIS Last administered on 07/15/18at 10:16; Start 07/09/18 at 16:45; Stop 07/15/18 at 11:03; Status DC Sertraline HCl (Zoloft) 75 mg DAILY PO Last administered on 07/15/18at 08:32; Start 07/13/18 at 09:00; Stop 07/15/18 at 11:03; Status DC Active Scripts Active Reported Haloperidol 2 Mg Tablet 2 Mg PO PRN BID PRN Haloperidol 2 Mg Tablet 0.5 Mg PO DAILY Analgesic [place] (Methyl Salicylate/Menthol) 28 Gm Oint...g. 1 Applic TP QIDPRN PRN Milk Of Magnesia (Magnesium Hydroxide) 2,400 Mg/10 Ml Oral.susp 2,400 Mg PO HS PRN Maalox Advanced Suspension (Mag Hydrox/Aluminum Hyd/Simeth) 355 Ml Oral.susp 15 Ml PO PRN AFTMEALHC PRN D3-50 (Cholecalciferol (Vitamin D3)) 50,000 Unit Capsule 1 Cap PO WEEKLY Tessalon Perle (Benzonatate) 100 Mg Capsule 100 Mg PO TID Albuterol Sulfate Conc Neb Soln (Albuterol Sulfate) 2.5 Mg/0.5 Ml Vial.neb 2.5 Mg NEB BID@1000,2200 Zoloft (Sertraline Hcl) 100 Mg Tablet 75 Mg PO DAILY Pravastatin Sodium 40 Mg Tablet 40 Mg PO HS Melatonin 3 Mg Tablet 3 Mg PO HS PRN Levetiracetam 500 Mg Tablet 500 Mg PO BID Folic Acid 1 Mg Tablet 1 Mg PO DAILY Ferrous Sulfate 324 Mg Tablet.dr 324 Mg PO Q48HRS Donepezil Hcl 5 Mg Tablet 10 Mg PO HS Vitamin B-12 (Cyanocobalamin (Vitamin B-12)) 1,000 Mcg Tablet 1,000 Mcg PO DAILY Clotrimazole 15 Gm Cream..g. 1 Hailee TP BID Amlodipine Besylate 5 Mg Tablet 5 Mg PO DAILY Albuterol Sulfate Neb Soln (Albuterol Sulfate) 2.5 Mg/3 Ml Vial.neb 3 Ml NEB PRN Q6HRS PRN Acetaminophen 500 Mg Tablet 1,000 Mg PO TID PRN Potassium Chloride 10 Meq Tablet.er 20 Meq PO TID I have reviewed the current psychotropics carefully including drug interactions. Risk benefit ratio favors no change other than as noted in my dictated progress note. Diagnosis: Problems: (1) Bilateral pleural effusion (2) Chronic diastolic CHF (congestive heart failure) (3) Anxiety disorder (4) Dementia in Alzheimer's disease with delusions (5) Dementia in Alzheimer's disease with depression (6) Dementia, vascular, with delusions (7) Dementia, vascular, with depression (8) Impulse control disorder ANTWAN MUÑOZ MD Jul 15, 2018 19:46
--- NOTE | 2018-07-16 12:06 | DS ---
DATE OF DISCHARGE: 07/15/2018 DISCHARGE SUMMARY/PSYCHIATRIC PROGRESS NOTE This late entry 07/15/2018 covers elements not covered in my initial note. REASON FOR ADMISSION: Please refer to the admission history for details. Briefly, the patient is an 88-year-old female who is referred back to us after she is medically stabilized in the ICU per Dr. Barahona for her CHF and still remained confused, agitated, restless, having hallucinations, wandering and labile in her mood. SIGNIFICANT FINDINGS AND CLINICAL COURSE: Following admission, the patient was seen daily individually by myself from a psychiatric standpoint, medical followup with Dr. Barahona/Dr. [place]. She remained confused, anxious, intermittently hallucinating. Adjustments were made in her psychotropics and she seemed to respond positively to this. Dr. Pittman, covered for me from a psychiatric standpoint for the last 1 week of her hospitalization when I assumed her care back on 07/15/2018. REVIEW OF SYSTEMS: Prior to discharge, 07/15/2018, ambulation is impaired with walker. No CV, , pulmonary, eye, ENT system symptoms on review. Reliability poor. MENTAL STATUS EXAM: Oriented to herself. Insight, judgment, recent and remote memory, attention, concentration, fund of knowledge is poor, consistent with her diagnoses. CONDITION AT DISCHARGE: Improved. FINAL DIAGNOSES: Major neurocognitive disorder, Alzheimer, vascular with delusion, depression, behavioral disturbance; anxiety disorder, unspecified; impulse control disorder, unspecified. Rest unchanged from admission. DISCHARGE MEDICATIONS: Please refer to the MRAD. DISCHARGE INSTRUCTIONS: Outpatient psychiatric and medical followup at the custodial. ANTWAN MUÑOZ MD DR: ALBARO/dee JOB#: [id number] / [id number]
== END 2018-07-15 10:28 | DRG 57 ==
LOC: GEROPSY 15:25
PROVIDERS: ADMIT Psychiatry & Neurology Psychiatry; ATTEND Psychiatry & Neurology Psychiatry
DX: G30.9 Alzheimer's disease, unspecified (principal); F02.81 Dementia in other diseases classified elsewhere, unspecified severity, with behavioral disturbance; F01.51 Vascular dementia, unspecified severity, with behavioral disturbance; G93.40 Encephalopathy, unspecified; J96.12 Chronic respiratory failure with hypercapnia; I50.32 Chronic diastolic (congestive) heart failure; F63.9 Impulse disorder, unspecified; G40.909 Epilepsy, unspecified, not intractable, without status epilepticus; I11.0 Hypertensive heart disease with heart failure; M81.0 Age-related osteoporosis without current pathological fracture; J32.4 Chronic pansinusitis; I27.20 Pulmonary hypertension, unspecified; E78.5 Hyperlipidemia, unspecified; E87.6 Hypokalemia; F41.9 Anxiety disorder, unspecified; F32.9 Major depressive disorder, single episode, unspecified; Z88.0 Allergy status to penicillin; Z88.8 Allergy status to other drugs, medicaments and biological substances; Z88.1 Allergy status to other antibiotic agents; Z91.011 Allergy to milk products; Z79.899 Other long term (current) drug therapy
CPT/HCPCS: 36415; 73110; 73502; 80053; 85025; 94640; J7613; 97116; 97530